=== PATIENT | male | born 1945 | race Two or more races ===

== ENCOUNTER 2025-03-05 16:55 | Inpatient (IN) | payer BC, MEDICARE ==
[~2025-03-05] VITALS: Ht 170.2 cm; Wt 63.5 kg
--- NOTE | 2025-03-05 18:04 | ED.PDOC ---
General HPI Comments Past medical history: denies Past surgical history: proctectomy in 2017 MARLENE ELY HPI: Poor Historian. 79-year-old male presents to emergency department for evaluation of hematuria f or the last two weeks however he is able to void urine. Today he was unable to void any urine and feels pressure in his pelvic area. Patient has history of mastectomy in the past. Denies any other acute symptoms. Patient is not on blood thinners. REVIEW OF SYSTEMS: CONSTITUTIONAL: Denies acute: fever, diaphoresis, chills, generalized weakness. HEAD: Denies acute: headache, photophobia Eyes: Denies acute: Double vision, vision loss, eye pain, eye discharge. EARS: Denies acute: tinnitus, hearing loss, ear discharge, ear pain, THROAT: Denies acute: sore throat, swelling, difficulty swallowing , pain with swallowing, change in voice. NECK: Denies acute: neck pain, neck swelling, stiff neck. HEART: Denies acute : chest pain, palpitations, LUNGS: Denies acute: SOB, wheezing, cough, hemoptysis ABDOMEN: Denies acute: abdominal pain, Nausea, Vomiting, diarrhea, melena , hematemesis, hematochezia SKIN: Denies acute: rash, redness, lesions, itchiness. EXTREMITIES: Denies acute: calf pain, numbness, tingling, weakness, denies pain in extremity. Denies acute: Low back pain. Neuro: Denies acute: focal neurological deficit, motor or sensory focal neurological deficit, tremors, seizure like activity, confusion, dizziness, change in mental status, loss of bowel or bladder function, cauda equina like symptoms. : Denies acute: dysuria, , flank pain, PSYCH: Denies acute: hallucination, suicidal ideation, homicidal ideation. PHYSICAL EXAM: General: -----[id number]---acute distress, awake and alert. Head: normocephalic, atraumatic. Neck: supple, trachea is midline, no swelling. Throat: Normal phonation. Eyes:, no erythema, no purulent discharge, no proptosis, no icterus. Heart: regular rate, regular rhythm, no significant murmur appreciated. Lungs: no apparent respiratory distress, Able to speak in full sentences. No wheezing, no rhonchi, no crackles. No stridors Clear to auscultation bilaterally. Abdomen: Suprapubic tender to palpation, non distended, soft, no guarding, no rebound, + bowel sounds. Neuro: Awake, Alert, oriented to name, self, situation, follows commands GCS=15. Speech is normal. Skin: no petechia, no purpura, no cyanosis, non-pale, not jaundice. Lower extremities: --trace bilateral- Pitting edema no deformity, no focal swelling, no calf TTP. Makes eye contact. moves all four extremities. Face: no apparent facial droop. Ambulating in the ED independently. ED COURSE: DISCLAIMER: This medical document was created using an electronic medical record system with voice recognition software and computerized dictation system. Although this document has been carefully reviewed, there might still be some phonetic and typographical errors. Occasional wrong-word or "sound-alike" substitutions may have occurred due to the inherent limitations of voice recognition software. These areas are purely typographical due to imperfections of the software programs and do not reflect any compromise in the patient's medical care. Please read the chart carefully and recognize, using context, where these substitutions have occurred. Chief Complaint: Urinary Time Seen by MD: 18:00 Reviewed notes: Medications, Allergies Allergies: Coded Allergies: NO KNOWN ALLERGIES (Unverified , 03/05/25) Information Source: Patient Mode of Arrival: Ambulatory Was a procedure done? Was a procedure done?: No Differential Diagnosis Kidney stone (Female): N/A Urinary Problem (Male): Bladder Outlet, Bladder Obstruction, Epididymitis, Prostatitis, Plelonephritis, Post op Complications, Renal Failure, Urethritis, Urinary Retention, Urolithiasis, UTI, Other (Hematuria:Ddx includes but not limited to: stones, coagulopathy, bladder/kidney cancer, SLE, infection, pylonephritis, prostatitis, cystitis, urethritis, renal infarct, Goodpasture syndrome, Wegners granulomatosis, Henoch-schnolin purpura, Hemolytic Uremic Syndrome HUS. Rhabdomyolysis. ) X-Ray, Labs, Meds, VS Vital Signs Date Time Temp Pulse Resp B/P (MAP) Pulse Ox O2 Delivery O2 Flow Rate FiO2 03/05/25 20:00 98.2 99 12 139/79 (99) 100 98.2 03/05/25 16:55 98.0 96 18 155/47 (83) 98 98.0 Lab Test 03/05/25 20:00 03/05/25 18:30 Range/Units Urine Color Pending Urine Clarity Pending Urine pH Pending Urine Specific [place] Pending Urine Protein Pending Urine Ketones Pending Urine Blood Pending Urine Nitrite Pending Urine Bilirubin Pending Urine Urobilinogen Pending Urine Leukocyte Esterase Pending Urine RBC Pending Urine Microscopic WBC Pending Urine Squamous Epithelial Cells Pending Urine Bacteria Pending Urine Glucose Pending White Blood Count 8.5 4.4-10.8 10^3/uL Red Blood Count 2.46 L 4.5-5.90 10^6/uL Hemoglobin 6.5 *L 13.5-17.5 g/dL Hematocrit 19.7 L 41.0-53.0 % Mean Corpuscular Volume 80.1 80.0-100.0 fL Mean Corpuscular Hemoglobin 26.4 L 28.0-32.0 pg Mean Corpuscular Hemoglobin Concent 32.9 32.0-36.0 g/dL Red Cell Distribution Width 17.5 H 11.8-14.3 % Platelet Count 451 H 140-450 10^3/uL Mean Platelet Volume 7.5 6.9-10.8 fL Neutrophils (%) (Auto) 86.3 H 37.0-80.0 % Lymphocytes (%) (Auto) 5.0 L 10.0-50.0 % Monocytes (%) (Auto) 7.2 0.0-12.0 % Eosinophils (%) (Auto) 0.9 0.0-7.0 % Basophils (%) (Auto) 0.6 0.0-2.0 % Neutrophils # (Auto) 7.3 1.6-8.6 10 ^3/uL Lymphocytes # (Auto) 0.4 0.4-5.4 10 ^3/uL Monocytes # (Auto) 0.6 0-1.3 10 ^3/uL Eosinophils # (Auto) 0.1 0-0.8 10 ^3/uL Basophils # (Auto) 0.1 0-0.2 10 ^3/uL Nucleated Red Blood Cells 0.0 % Prothrombin Time 10.9 9.3-11.8 sec Prothrombin Time INR 1.03 0.9-1.15 Activated Partial Thromboplast Time 26.3 24.5-34.5 SEC Sodium Level 140 136-145 mmol/L Potassium Level 4.1 3.5-5.1 mmol/L Chloride Level 108 H 98-107 mmol/L Carbon Dioxide Level 20 20-31 mmol/L Anion Gap 12 5-15 Blood Urea Nitrogen 32 H 9-23 mg/dL Creatinine 2.96 H 0.700-1.30 mg/dL Glomerular Filtration Rate Calc 21 >90 mL/min BUN/Creatinine Ratio 10.8 10.0-20.0 Serum Glucose 96 74-106 mg/dL Lactic Acid Level 0.7 0.4-2.0 mmol/L Calcium Level 8.9 8.7-10.4 mg/dL Total Bilirubin 0.2 0.2-1.0 mg/dL Aspartate Amino Transferase (AST) 16 <34 U/L Alanine Aminotransferase (ALT) < 9 7-40 U/L Alkaline Phosphatase 20 L 46-116 U/L Total Protein 6.7 5.7-8.2 g/dL Albumin 4.1 3.2-4.8 g/dL Current Medications Medications (Trade) Dose Ordered Sig/Julia Route Start Time Stop Time Status Last Admin Sodium Chloride 1,000 ml @ 1,000 mls/hr Q1H ONCE IV 03/05/25 19:15 03/05/25 20:14 DC 03/05/25 19:50 Ceftriaxone Sodium 50 ml @ 100 mls/hr ONCE ONCE IV 03/05/25 19:15 03/05/25 19:44 DC 03/05/25 19:50 Acetaminophen/ Hydrocodone Bitart ([place] 5/325MG Tab) 1 tab ONCE ONCE PO 03/05/25 20:00 03/05/25 20:07 DC 03/05/25 20:14 [place] [id number] Ph: [phone] DIAGNOSTIC IMAGING Diagnostic Imaging Report : [id number] Signed PATIENT: MARLENE ELY MERVATACCT: [id number] UNIT: [id number] : 1945 LOC: ER ROOM / BED: / AGE / SEX: 79 / M ADM STATUS: REG ER SERVICE [id number] ORDERING PHYSICIAN: ROB CARR DO PROCEDURE(s): ABPL - CT AB PEL WO CON-NO ORAL OR IV REASON: Hematuria ORDER NUMBER(s): [id number], ACCESSION NUMBER(s): [id number] Exam: CT CT AB PEL WO CON-NO ORAL OR IV History: Hematuria Comparison Study: None TECHNIQUE: Multidetector CT of the abdomen was performed from lung bases to pubic symphysis. Imaging was performed without IV contrast. Axial, coronal and sagittal multiplanar reformats were obtained from the axial data set by the technologist. Radiation Dose Information: CT Dose: CTDI volume is 5.07 mGy. Dose-length product is 310.4 mGy*cm FINDINGS: Evaluation of solid organs is limited due to lack of intravenous contrast use. Findings: Lung Bases: No acute or significant lung base finding. Normal heart size. No pleural or pericardial effusion. Liver: The liver is normal in size. No focal lesions. Gallbladder and Biliary Tree: Unremarkable Spleen: Unremarkable Pancreas: The pancreas is grossly normal in appearance. Adrenal Glands: Unremarkable Kidneys: Mild bilateral pyelocaliectasis. Bladder: Thickening of the bladder on the left worrisome for neoplasm. (6.9 x 2.4 cm) Bowel: The stomach is grossly normal in appearance. Small bowel and colon are normal in caliber and distribution. The appendix is not visualized; however, no secondary findings of acute appendicitis identified. Ascites: Absent Lymphadenopathy: No mesenteric, retroperitoneal or periportal lymphadenopathy. Abdominal Wall and Mesentery: Unremarkable. Vasculature: The visualized abdominal aorta is normal in size and caliber. Evaluation of abdominal and pelvic vessels is limited due to lack of intravenous contrast. Pelvic Organs: Unremarkable Musculoskeletal: No aggressive focal bony lesions, acute fractures or dislocation. Soft tissues: Unremarkable IMPRESSION: 1. Bilateral pyelocaliectasis. 2. Mucosal thickening of the bladder wall on the left measuring 6.9 by 2.5 cm Radiation optimization: All CT scans at this facility use at least one of these dose optimization techniques: automated exposure control mA and/or kV adjustment per patient size (includes targeted exams where dose is matched to clinical indication) or iterative reconstruction. HS:Y ATED BY: BALAJI MAJANO Jr., DO DICTATED DATE/TIME: 03/05/252055 SIGNED BY: BALAJI MAJANO Jr., SIGNED DATE/TIME: 03/05/252055 CC: Time of 1ST Reevaluation: 18:30 Reevaluation 1ST: Unchanged Patient Education/Counseling: Diagnosis, Treatment Family Education/Counseling: No Family Present Comments Patient presented with the above HPI.---hematuria and urinary retention---workup was initiated. patient was found with the above mentioned diagnosis. the following medications were ordered: please refer to order lists of meds and tests obtained by myself Dr. Carr. Patient ED course and VS have been stabilized. Patient has been reassessed in the ED and remained in a stable condition. Pertinent incidental findings were discussed with the patient and/or family. Patient/family voices understanding and is agreeable with plan. Patient has been observed in the ED adequate length of time to insure improvement/stability. Escalation of care considered: Consideration of escalation to observation or admission Patient stated he has been bleeding for approximately two weeks with the hematuria. Patient was found with anemia today. Patient was consented for blood transfusion. Three-way Hein catheter was ordered and continuous bladder irrigation was ordered. Patient was ADMITTED to the medicine team for further evaluation and treatment of their presentation. All the reports of any imaging studies that were ordered by myself were reviewed by myself. Departure 1 Departure Time of Disposition: 19:04 Impression: Primary Impression: Acute urinary retention Additional Impressions: Hematuria Acute renal failure Symptomatic anemia Pyelocaliectasis Disposition: ADMITTED INPATIENT Admit to: [facility] Condition: Guarded Discharged With: Self Critical Care Note Critical Care Time?: Yes (1 hr-critical care time only) I personally scribed for ROB CARR DO ([email or web address]) on 03/05/25 at 18:04. Electronically submitted by Vikas Ryan ([email or web address]). ROB CARR DO Mar 05, 2025 18:04
[2025-03-05 18:35] LABS: Nucleated Red Blood Cells % 0.0 %
[2025-03-05 18:37] LABS: Hematocrit 19.7 % (41.0-53.0); Mean Corpuscular Hemoglobin 26.4 pg (28.0-32.0); Mean Corpuscular Volume 80.1 fL (80.0-100.0)
[2025-03-05 18:53] LABS: Albumin 4.1 g/dL (3.2-4.8); Anion Gap 12 (5-15); BUN/Creatinine Ratio 10.8 (10.0-20.0); Calcium 8.9 mg/dL (8.7-10.4); Glucose 96 mg/dL (74-106); Potassium 4.1 mmol/L (3.5-5.1); Sodium 140 mmol/L (136-145); Total Protein 6.7 g/dL (5.7-8.2)
[2025-03-05 18:55] LABS: Alanine Aminotransferase < 9 U/L (7-40); Alkaline Phosphatase 20 U/L (46-116); Bilirubin, Total 0.2 mg/dL (0.2-1.0); Blood Urea Nitrogen 32 mg/dL (9-23); Carbon Dioxide 20 mmol/L (20-31); Chloride 108 mmol/L (98-107)
[2025-03-05 18:56] LABS: Hemoglobin 6.5 g/dL (13.5-17.5)
[2025-03-05 19:02] LABS: INR 1.03 (0.9-1.15); Partial Thromboplastin Time 26.3 SEC (24.5-34.5); Prothrombin Time 10.9 sec (9.3-11.8)
[2025-03-05 19:30] VITALS: PULSE 91; RESP 16; O2SAT 98
[2025-03-05] MEDS: SODIUM CHLORIDE 0.9% 1,000 ML IV ONE ×2 (19:50→22:30)
[2025-03-05] MEDS: cefTRIAXone 1GM/50ML D5W 50 ML IV ONE (19:50)
[2025-03-05] MEDS: HYDROcodone-ACET 5/325MG TAB PO ONE (20:14)
[2025-03-05] MEDS: LIDOCAINE 2% TOPICAL JELLY 5 ML URJT TOP ONE (20:15)
--- NOTE | 2025-03-05 20:59 | DVH ---
Exam: CT CT AB PEL WO CON-NO ORAL OR IV History: Hematuria Comparison Study: None TECHNIQUE: Multidetector CT of the abdomen was performed from lung bases to pubic symphysis. Imaging was performed without IV contrast. Axial, coronal and sagittal multiplanar reformats were obtained fr om the axial data set by the technologist. Radiation Dose Information: CT Dose: CTDI volume is 5.07 mGy. Dose-length product is 310.4 mGy*cm FINDINGS: Evaluation of solid organs is limited due to lack of intravenous contrast use. Findings: Lung Bases: No acute or significant lung base finding. Normal heart size. No pleural or pericardial effusion. Liver: The liver is normal in size. No focal lesions. Gallbladder and Biliary Tree: Unremarkable Spleen: Unremarkable Pancreas: The pancreas is grossly normal in appearance. Adrenal Glands: Unremarkable Kidneys: Mild bilateral pyelocaliectasis. Bladder: Thickening of the bladder on the left worrisome for neoplasm. (6.9 x 2.4 cm) Bowel: The stomach is grossly normal in appearance. Small bowel and colon are normal in caliber and d istribution. The appendix is not visualized; however, no secondary findings of acute appendicitis id entified. Ascites: Absent Lymphadenopathy: No mesenteric, retroperitoneal or periportal lymphadenopathy. Abdominal Wall and Mesentery: Unremarkable. Vasculature: The visualized abdominal aorta is normal in size and caliber. Evaluation of abdominal a nd pelvic vessels is limited due to lack of intravenous contrast. Pelvic Organs: Unremarkable Musculoskeletal: No aggressive focal bony lesions, acute fractures or dislocation. Soft tissues: Unremarkable IMPRESSION: 1. Bilateral pyelocaliectasis. 2. Mucosal thickening of the bladder wall on the left measuring 6.9 by 2.5 cm Radiation optimization: All CT scans at this facility use at least one of these dose optimization sam hniques: automated exposure control mA and/or kV adjustment per patient size (includes targeted exam s where dose is matched to clinical indication) or iterative reconstruction. HS:Y
[2025-03-05] MEDS ORDERED: ONDANSETRON HCL 4 MG/2 ML VIAL IV PRN (21:15)
[2025-03-05 21:40] LABS: Urine Protein, UAD 2+ (Negative)
--- NOTE | 2025-03-05 22:44 | DVHHP2 ---
History of Present Illness Reason for Visit: Symptomatic anemia History of Present Illness The patient is a 79-year-old male who denies past medical history presents to [facility] ED with complaint of generalized weakness. Patient noted to have hematuria for the past 2 weeks while voiding. However today, patient was unable to void any urine and feel pressure in his pelvic area, getting worse that prompted this visit. Patient was seen and evaluated in the ED, laboratory data shows WBC 8.5, hemoglobin 6.5, hematocrit 19.7, platelets 451, sodium 140, potassium 4.1, BUN 32, creatinine 2.96, glucose 96, blood pressure 139/79, heart rate 99, temperature 98.2 F, O2 saturation 99% on room air. Patient was given 2 units of PRBC, please see medication orders section in the computer. On my assessment, patient denied chest pain, no headache, no dizziness, no shortness of breath, no nausea, no vomiting, no fever, no chills. Patient was admitted for further evaluation and medical management. Past Medical History Denies past medical history Past Surgical History Proctectomy in 2017 Family History Reviewed, noncontributory to the management of this case. Past Social History The patient lives at home, denies smoking, alcohol or illicit drugs abuse. Review of Systems Constitutional: Yes: Weakness; No: Fever, Chills, Sweats, Malaise, Other Eyes: No: Pain, Vision change, Conjunctivae inflammation, Eyelid inflammation, Other, Redness ENT: No: Ear pain, Ear discharge, Nose pain, Nose discharge, Nose congestion, Mouth pain, Mouth swelling, Throat pain, Throat swelling, Other Respiratory: No: Cough, Dry, Shortness of breath, SOB with excertion, Wheezing, Hemoptysis, Pleuritic Pain, Sputum, Wheezing, Other Cardiovascular: No: Chest Pain, Palpitations, Orthopnea, Paroxysmal Noc. Dyspnea, Edema, Lt Headedness, Other Gastrointestinal: No: Nausea, Vomiting, Abdominal Pain, Diarrhea, Constipation, Melena, Hematochezia, Other Genitourinary: No Dysuria, No Frequency, No Incontinence; Hematuria, Retention; No Other Musculoskeletal: No: other, neck pain, shoulder pain, arm pain, back pain, hand pain, leg pain, foot pain Skin: No: Rash, Lesions, Jaundice, Bruising, Other Neurological: No: Weakness, Numbness, Incoordination, Change in speech, Confusion, Seizures, Other Allergies: Coded Allergies: NO KNOWN ALLERGIES (Unverified , 03/05/25) Medications Current Medications Medications Dose Ordered Sig/Julia Route Start Time Stop Time Status Last Admin Dose Admin Acetaminophen/ Hydrocodone Bitart 1 tab Q4HP PRN PO 03/05/25 21:15 Ondansetron HCl 4 mg Q4HP PRN IV 03/05/25 21:15 Docusate Sodium 100 mg BIDPRN PRN PO 03/05/25 21:15 Acetaminophen 650 mg Q6HP PRN PO 03/05/25 21:15 Sodium Chloride 1,000 ml @ 75 mls/hr [id number] IV 03/05/25 21:15 Exam Vital Signs Vital Signs Date Time Temp Pulse Resp B/P (MAP) Pulse Ox O2 Delivery O2 Flow Rate FiO2 03/05/25 20:00 98.2 99 12 139/79 (99) 100 98.2 General Appearance: Alert, Oriented X3, Cooperative, No acute distress HEENT: Atraumatic, PERRLA, EOMI, Mucous membr. moist/pink Respiratory: Clear to auscultation, Normal air movement Cardiovascular: Regular rate, Normal S1, Normal S2, No murmurs Abdominal: Normal bowel sounds, Soft, No hepatospenomegaly, No masses, Other (Reports tenderness) Extremities: No clubbing, No cyanosis, No edema, Normal pulses, No tenderness/swelling Skin: No rashes, No breakdown, No significant lesion Neuro: Normal speech, Normal tone, Sensation intact, Cranial nerves 3-12 NL, Reflexes 2+, Other (Generalized weakness) Psych/Mental Status: Mental status NL, Mood NL Labs/Xrays Labs Test 03/05/25 20:00 03/05/25 18:30 Range/Units Urine Color Light-red Yellow Urine Clarity Ex.turbid Clear Urine pH 6.5 5.0-9.0 Urine Specific [place] 1.011 1.001-1.035 Urine Protein 2+ H Negative Urine Ketones Negative Negative Urine Blood 3+ H Negative /uL Urine Nitrite Negative Negative Urine Bilirubin Negative Negative Urine Urobilinogen Normal Negative mg/dL Urine Leukocyte Esterase 2+ Negative /uL Urine RBC 6312 0 - 3 /hpf Urine Microscopic WBC 130 H 0-3 /HPF Urine Squamous Epithelial Cells None seen <5 /hpf Urine Bacteria None seen None Seen /hpf Urine Glucose Normal Normal mg/dL White Blood Count 8.5 4.4-10.8 10^3/uL Red Blood Count 2.46 L 4.5-5.90 10^6/uL Hemoglobin 6.5 *L 13.5-17.5 g/dL Hematocrit 19.7 L 41.0-53.0 % Mean Corpuscular Volume 80.1 80.0-100.0 fL Mean Corpuscular Hemoglobin 26.4 L 28.0-32.0 pg Mean Corpuscular Hemoglobin Concent 32.9 32.0-36.0 g/dL Red Cell Distribution Width 17.5 H 11.8-14.3 % Platelet Count 451 H 140-450 10^3/uL Mean Platelet Volume 7.5 6.9-10.8 fL Neutrophils (%) (Auto) 86.3 H 37.0-80.0 % Lymphocytes (%) (Auto) 5.0 L 10.0-50.0 % Monocytes (%) (Auto) 7.2 0.0-12.0 % Eosinophils (%) (Auto) 0.9 0.0-7.0 % Basophils (%) (Auto) 0.6 0.0-2.0 % Neutrophils # (Auto) 7.3 1.6-8.6 10 ^3/uL Lymphocytes # (Auto) 0.4 0.4-5.4 10 ^3/uL Monocytes # (Auto) 0.6 0-1.3 10 ^3/uL Eosinophils # (Auto) 0.1 0-0.8 10 ^3/uL Basophils # (Auto) 0.1 0-0.2 10 ^3/uL Nucleated Red Blood Cells 0.0 % Prothrombin Time 10.9 9.3-11.8 sec Prothrombin Time INR 1.03 0.9-1.15 Activated Partial Thromboplast Time 26.3 24.5-34.5 SEC Sodium Level 140 136-145 mmol/L Potassium Level 4.1 3.5-5.1 mmol/L Chloride Level 108 H 98-107 mmol/L Carbon Dioxide Level 20 20-31 mmol/L Anion Gap 12 5-15 Blood Urea Nitrogen 32 H 9-23 mg/dL Creatinine 2.96 H 0.700-1.30 mg/dL Glomerular Filtration Rate Calc 21 >90 mL/min BUN/Creatinine Ratio 10.8 10.0-20.0 Serum Glucose 96 74-106 mg/dL Lactic Acid Level 0.7 0.4-2.0 mmol/L Calcium Level 8.9 8.7-10.4 mg/dL Total Bilirubin 0.2 0.2-1.0 mg/dL Aspartate Amino Transferase (AST) 16 <34 U/L Alanine Aminotransferase (ALT) < 9 7-40 U/L Alkaline Phosphatase 20 L 46-116 U/L Total Protein 6.7 5.7-8.2 g/dL Albumin 4.1 3.2-4.8 g/dL PATIENT: MARLENE ELYACCT: [id number] UNIT: [id number] : 1945 LOC: ER ROOM / BED: / AGE / SEX: 79 / M ADM STATUS: REG ER SERVICE 1749 ORDERING PHYSICIAN: ROB CARR DO PROCEDURE(s): ABPL - CT AB PEL WO CON-NO ORAL OR IV REASON: Hematuria ORDER NUMBER(s): [id number], ACCESSION NUMBER(s): [id number] Exam: CT CT AB PEL WO CON-NO ORAL OR IV History: Hematuria Comparison Study: None TECHNIQUE: Multidetector CT of the abdomen was performed from lung bases to pubic symphysis. Imaging was performed without IV contrast. Axial, coronal and sagittal multiplanar reformats were obtained from the axial data set by the technologist. Radiation Dose Information: CT Dose: CTDI volume is 5.07 mGy. Dose-length product is 310.4 mGy*cm FINDINGS: Evaluation of solid organs is limited due to lack of intravenous contrast use. Findings: Lung Bases: No acute or significant lung base finding. Normal heart size. No pleural or pericardial effusion. Liver: The liver is normal in size. No focal lesions. Gallbladder and Biliary Tree: Unremarkable Spleen: Unremarkable Pancreas: The pancreas is grossly normal in appearance. Adrenal Glands: Unremarkable Kidneys: Mild bilateral pyelocaliectasis. Bladder: Thickening of the bladder on the left worrisome for neoplasm. (6.9 x 2.4 cm) Bowel: The stomach is grossly normal in appearance. Small bowel and colon are normal in caliber and distribution. The appendix is not visualized; however, no secondary findings of acute appendicitis identified. Ascites: Absent Lymphadenopathy: No mesenteric, retroperitoneal or periportal lymphadenopathy. Abdominal Wall and Mesentery: Unremarkable. Vasculature: The visualized abdominal aorta is normal in size and caliber. Evaluation of abdominal and pelvic vessels is limited due to lack of intravenous contrast. Pelvic Organs: Unremarkable Musculoskeletal: No aggressive focal bony lesions, acute fractures or dislocation. Soft tissues: Unremarkable IMPRESSION: 1. Bilateral pyelocaliectasis. 2. Mucosal thickening of the bladder wall on the left measuring 6.9 by 2.5 cm Assessment/Plan Assessment/Plan Symptomatic anemia Acute urinary retention Hematuria Acute renal failure Pyelocaliectasis Generalized weakness Plan 1. Admit to telemetry unit 2. Breathing treatment 3. Pain control management 4. IV antibiotic management 5. Management of fluids and electrolytes 6. Consultation for Urology/Nephrology 7. Diagnostic test abdomen/pelvis CT 8. DVT prophylaxis on SCDs 9. Repeat labs CBC, CMP in a.m. 10. Home medication reviewed and reconciled 11. Continue with current medical management 12. Treatment plan discussed with patient and RN. Patient verbalized unde rstanding. Plan discussed with: Patient, Other (RN) My Orders Orders - CHAVO FLEMING DNP Procedure Category Date Status Time *Dr. [facility] CONS 03/05/25 Transmitted -[place] 21:08 Allergies HUSSEIN 03/05/25 In Process 21:08 Code Status CODE 03/05/25 Transmitted 21:08 Oxygen Per Hour RT 03/05/25 Transmitted 21:08 Hydrocodone-Acet PHA 03/05/25 In Process 5/325mg Tab ([place] 21:15 Ondansetron Hcl PHA 03/05/25 In Process (Zofran) 21:15 Docusate Sodium PHA 03/05/25 In Process Capsule (Colace 21:15 Complete Blood Count LAB 03/06/25 Verified 04:00 Comprehensive LAB 03/06/25 Verified Metabolic Panel 04:00 Cardiac DIET 03/06/25 Transmitted Diet-2gna,Lofat,Lochol Breakfast Condition: Serious HUSSEIN 03/05/25 In Process 21:08 Acetaminophen Tablet PHA 03/05/25 In Process (Tylenol Tablet) 21:15 Bedrest With Bathroom HUSSEIN 03/05/25 In Process Privileg 21:08 Sequential HUSSEIN 03/05/25 In Process Compression Device Sod Chl 0.45% (Sodium PHA 03/05/25 In Process Chloride 0.45% Via 21:15 Problem List: (1) Symptomatic anemia (2) Acute urinary retention (3) Hematuria (4) Pyelocaliectasis (5) Acute renal failure (6) Generalized weakness Date of Service: Mar 05, 2025 Billing Provider: CHAVO FLEMING DNP Common Visit Codes: [id number] INP/OBS CARE (HIGH) CHAVO FLEMING DNP Mar 05, 2025 22:44
[2025-03-05] MEDS ORDERED: NITROGLYCERIN 0.4 MG SL TAB SL PRN (22:45)
[2025-03-05] MEDS ORDERED: MORPHINE SULFATE INJ 2 MG/ml SYRG IV PRN (22:45)
[2025-03-05] MEDS: LIDOCAINE 2% JELLY 11ml (GLYDO) ONE (23:45)
[2025-03-06] VITALS (12 sets, daily range): BP systolic 134–161; BP diastolic 78–102; PULSE 62–99; RESP 16–21; TEMP 96.4–98.3; O2SAT 96–99
[2025-03-06] MEDS: LIDOCAINE 2% JELLY 11ml (GLYDO) UR ONE (00:02)
[2025-03-06 05:06] LABS: COVID19 ANTIGEN SOFIA FIA NEGATIVE (NEGATIVE)
[2025-03-06 07:36] LABS: Hematocrit 26.0 % (41.0-53.0); Hemoglobin 8.7 g/dL (13.5-17.5); Mean Corpuscular Hemoglobin 27.9 pg (28.0-32.0); Mean Corpuscular Volume 83.4 fL (80.0-100.0); Nucleated Red Blood Cells % 0.1 %
[2025-03-06 07:52] LABS: Albumin 3.9 g/dL (3.2-4.8); Anion Gap 14 (5-15); BUN/Creatinine Ratio 8.8 (10.0-20.0); Calcium 9.2 mg/dL (8.7-10.4); Glucose 95 mg/dL (74-106); Potassium 4.3 mmol/L (3.5-5.1); Sodium 143 mmol/L (136-145); Total Protein 6.4 g/dL (5.7-8.2)
[2025-03-06 07:57] LABS: Alanine Aminotransferase < 9 U/L (7-40); Alkaline Phosphatase 19 U/L (46-116); Bilirubin, Total 0.3 mg/dL (0.2-1.0); Blood Urea Nitrogen 30 mg/dL (9-23); Carbon Dioxide 18 mmol/L (20-31); Chloride 111 mmol/L (98-107)
--- NOTE | 2025-03-06 10:29 | DVHINCON2 ---
Date of service: Mar 06, 2025 Referring Physician Kervin Dwyer, nurse practitioner Reason for Consultation Acute kidney injury History of Present Illness Patient is 79-year-old male with past medical history of prostate cancer diagnosed in 2017 status post surgery is admitted for urinary retention of the passing blood clots for two weeks for two weeks. On admission patient found to have elevated BUN creatinine nephrology is consulted for acute kidney injury Past Medical History Prostate cancer Past Surgical History Prostate surgery Allergies: Coded Allergies: NO KNOWN ALLERGIES (Unverified , 03/05/25) Home Meds No Active Prescriptions or Reported Meds Current Medications Current Medications Medications (Trade) Dose Ordered Sig/Julia Route PRN Reason Start Time Stop Time Status Last Admin Acetaminophen/ Hydrocodone Bitart (Homer 5/325MG Tab) 1 tab Q4HP PRN PO MODERATE PAIN (4-6 PAIN SCALE) 03/05/25 21:15 Ondansetron HCl (Zofran) 4 mg Q4HP PRN IV NAUSEA / VOMITING 03/05/25 21:15 Docusate Sodium (Colace Capsule) 100 mg BIDPRN PRN PO FOR CONSTIPATION 03/05/25 21:15 Acetaminophen (Tylenol Tablet) 650 mg Q6HP PRN PO PAIN SCALE 1-3 OR TEMP>100.4 03/05/25 21:15 Sodium Chloride 1,000 ml @ 75 mls/hr [id number] IV 03/05/25 21:15 Nitroglycerin (Ntrostat Sublingual) 0.4 mg Q5MINP PRN SL FOR CHEST PAIN 03/05/25 22:45 Morphine Sulfate 2 mg Q30M PRN IV FOR CHEST PAIN 03/05/25 22:45 Review of Systems All 12 item review of systems reviewed with the patient nonsignificant except what is mentioned in the history of present illness H&P Exam Vital Signs/I&O Vital Sign Date Time Temp Pulse Resp B/P (MAP) Pulse Ox O2 Delivery O2 Flow Rate FiO2 03/06/25 08:49 97.6 83 21 146/78 (100) 99 97.6 03/06/25 08:00 Room Air* 0 21 Intake and Output 03/05/25 03/06/25 19:00 07:00 Intake Total 1950 ml Output Total 390 ml Balance 1560 ml Intake Oral 0 ml IV Total 1050 ml Tube Feeding 0 ml Blood Product 900 ml Other 0 ml Output Urine Total 390 ml Physical Exam Patient is awake and alert Lungs clear to auscultation bilaterally Cardiac exam regular rate and rhythm GI soft nontender distended bladder Extremities no clubbing cyanosis or edema Neuro nonfocal Labs/Diagnostic Data Labs/Diagnostic Data Laboratory Tests Test 03/06/25 07:02 03/06/25 04:08 03/05/25 20:00 03/05/25 18:30 Range/Units White Blood Count 8.2 8.5 4.4-10.8 10^3/uL Red Blood Count 3.12 L 2.46 L 4.5-5.90 10^6/uL Hemoglobin 8.7 #L 6.5 *L 13.5-17.5 g/dL Hematocrit 26.0 #L 19.7 L 41.0-53.0 % Mean Corpuscular Volume 83.4 # 80.1 80.0-100.0 fL Mean Corpuscular Hemoglobin 27.9 L 26.4 L 28.0-32.0 pg Mean Corpuscular Hemoglobin Concent 33.5 32.9 32.0-36.0 g/dL Red Cell Distribution Width 18.2 H 17.5 H 11.8-14.3 % Platelet Count 402 451 H 140-450 10^3/uL Mean Platelet Volume 7.9 7.5 6.9-10.8 fL Neutrophils (%) (Auto) 87.0 H 86.3 H 37.0-80.0 % Lymphocytes (%) (Auto) 6.4 L 5.0 L 10.0-50.0 % Monocytes (%) (Auto) 6.2 7.2 0.0-12.0 % Eosinophils (%) (Auto) 0.2 0.9 0.0-7.0 % Basophils (%) (Auto) 0.2 0.6 0.0-2.0 % Neutrophils # (Auto) 7.2 7.3 1.6-8.6 10 ^3/uL Lymphocytes # (Auto) 0.5 0.4 0.4-5.4 10 ^3/uL Monocytes # (Auto) 0.5 0.6 0-1.3 10 ^3/uL Eosinophils # (Auto) 0 0.1 0-0.8 10 ^3/uL Basophils # (Auto) 0 0.1 0-0.2 10 ^3/uL Nucleated Red Blood Cells 0.1 0.0 % Sodium Level 143 140 136-145 mmol/L Potassium Level 4.3 4.1 3.5-5.1 mmol/L Chloride Level 111 H 108 H 98-107 mmol/L Carbon Dioxide Level 18 L 20 20-31 mmol/L Anion Gap 14 12 5-15 Blood Urea Nitrogen 30 H 32 H 9-23 mg/dL Creatinine 3.41 H 2.96 H 0.700-1.30 mg/dL Glomerular Filtration Rate Calc 18 21 >90 mL/min BUN/Creatinine Ratio 8.8 L 10.8 10.0-20.0 Serum Glucose 95 96 74-106 mg/dL Calcium Level 9.2 8.9 8.7-10.4 mg/dL Phosphorus Level 4.7 2.4-5.1 mg/dL Magnesium Level 1.9 1.6-2.6 mg/dL Total Bilirubin 0.3 0.2 0.2-1.0 mg/dL Aspartate Amino Transferase (AST) 14 16 <34 U/L Alanine Aminotransferase (ALT) < 9 < 9 7-40 U/L Alkaline Phosphatase 19 L 20 L 46-116 U/L Total Protein 6.4 6.7 5.7-8.2 g/dL Albumin 3.9 4.1 3.2-4.8 g/dL SARS-CoV-2 Antigen (Rapid) Negative NEGATIVE Urine Color Light-red Yellow Urine Clarity Ex.turbid Clear Urine pH 6.5 5.0-9.0 Urine Specific [place] 1.011 1.001-1.035 Urine Protein 2+ H Negative Urine Ketones Negative Negative Urine Blood 3+ H Negative /uL Urine Nitrite Negative Negative Urine Bilirubin Negative Negative Urine Urobilinogen Normal Negative mg/dL Urine Leukocyte Esterase 2+ Negative /uL Urine RBC 6312 0 - 3 /hpf Urine Microscopic WBC 130 H 0-3 /HPF Urine Squamous Epithelial Cells None seen <5 /hpf Urine Bacteria None seen None Seen /hpf Urine Glucose Normal Normal mg/dL Prothrombin Time 10.9 9.3-11.8 sec Prothrombin Time INR 1.03 0.9-1.15 Activated Partial Thromboplast Time 26.3 24.5-34.5 SEC Lactic Acid Level 0.7 0.4-2.0 mmol/L Assessment Acute kidney injury superimposed Chronic Kidney Disease secondary hemodynamic mediated Urinary retention Hematuria History of prostate cancer Hypertension Anemia due to blood loss Metabolic acidosis Recommendations Closely monitor fluid and electrolytes Avoid nephrotoxic medications Hein catheter Continuous bladder irrigation Strict I&Os I agree with IV fluid hydration Packed red blood cell transfusion p.r.n. Blood pressure control Urology consult We will continue to follow Patient seen and examined by myself. I discussed my plan of care with the patient and primary nurse at the bedside I would like to thank Kervin for the consult, will follow up Plan discussed with: Patient RUTH SHAW MD Mar 06, 2025 10:29
[2025-03-06] MEDS: SOD CHL 0.45% 1,000 ML IV SCH (10:35)
[2025-03-06 10:51] LABS: Magnesium 1.9 mg/dL (1.6-2.6)
--- NOTE | 2025-03-06 13:47 | DVHPN2 ---
Reviewed: Care Plan, H&P, Labs, Medications, Previous Orders, Radiology Changes from previous H/P or p: No Changes Eyes: No Pain, No Vision change, No Conjunctivae inflammation, No Eyelid inflammation, No Other, No Redness ENT: No Ear pain, No Ear discharge, No Nose pain, No Nose discharge, No Nose congestion, No Mouth pain, No Mouth swelling, No Throat pain, No Throat swelling, No Other Cardiovascular: No Chest Pain, No Palpitations, No Orthopnea, No Paroxysmal Noc. Dyspnea, No Edema, No Lt Headedness, No Other Respiratory: No Cough, No Dry, No Shortness of breath, No SOB with excertion, No Wheezing, No Hemoptysis, No Pleuritic Pain, No Sputum, No Other Gastrointestinal: No Nausea, No Vomiting, No Abdominal Pain, No Diarrhea, No Constipation, No Melena, No Hematochezia, No Other Genitourinary: No Dysuria, No Frequency, No Incontinence; Hematuria, Retention; No Other Musculoskeletal: No other, No neck pain, No shoulder pain, No arm pain, No back pain, No hand pain, No leg pain, No foot pain Skin: No Rash, No Lesions, No Jaundice, No Bruising, No Other Objective Vitals Vital Signs Date Time Temp Pulse Resp B/P (MAP) Pulse Ox O2 Delivery O2 Flow Rate FiO2 03/06/25 12:52 96.4 80 21 150/96 (114) 98 96.4 03/06/25 08:00 Room Air* 0 21 Intake/Output Intake and Output 03/06/25 07:00 Intake Total 1950 ml Output Total 390 ml Balance 1560 ml Intake Oral 0 ml IV Total 1050 ml Tube Feeding 0 ml Blood Product 900 ml Other 0 ml Output Urine Total 390 ml Medications Current Medications Medications Dose Ordered Sig/Julia Route Start Time Stop Time Status Last Admin Dose Admin Acetaminophen/ Hydrocodone Bitart 1 tab Q4HP PRN PO 03/05/25 21:15 Ondansetron HCl 4 mg Q4HP PRN IV 03/05/25 21:15 Docusate Sodium 100 mg BIDPRN PRN PO 03/05/25 21:15 Acetaminophen 650 mg Q6HP PRN PO 03/05/25 21:15 Sodium Chloride 1,000 ml @ 75 mls/hr [id number] IV 03/05/25 21:15 Nitroglycerin 0.4 mg Q5MINP PRN SL 03/05/25 22:45 Morphine Sulfate 2 mg Q30M PRN IV 03/05/25 22:45 Ceftriaxone Sodium 50 ml @ 100 mls/hr DAILY@09 IV 03/07/25 09:00 UNV Laboratory Results Laboratory Tests 03/06/25 07:02 Chemistry Test 03/05/25 18:30 03/06/25 07:02 Albumin 4.1 g/dL (3.2-4.8) 3.9 g/dL (3.2-4.8) Calcium Level 8.9 mg/dL (8.7-10.4) 9.2 mg/dL (8.7-10.4) Total Protein 6.7 g/dL (5.7-8.2) 6.4 g/dL (5.7-8.2) Magnesium Level 1.9 mg/dL (1.6-2.6) Phosphorus Level 4.7 mg/dL (2.4-5.1) Coagulation Test 03/05/25 18:30 Prothrombin Time 10.9 sec (9.3-11.8) Prothrombin Time INR 1.03 (0.9-1.15) Activated Partial Thromboplast Time 26.3 SEC (24.5-34.5) LFT Test 03/05/25 18:30 03/06/25 07:02 Alanine Aminotransferase (ALT) < 9 U/L (7-40) < 9 U/L (7-40) Alkaline Phosphatase 20 U/L (46-116) L 19 U/L (46-116) L Aspartate Amino Transferase (AST) 16 U/L (<34) 14 U/L (<34) Total Bilirubin 0.2 mg/dL (0.2-1.0) 0.3 mg/dL (0.2-1.0) Urinalysis Test 03/05/25 20:00 Urine Color Light-red (Yellow) Urine Clarity Ex.turbid (Clear) Urine pH 6.5 (5.0-9.0) Urine Specific [place] 1.011 (1.001-1.035) Urine Protein 2+ (Negative) H Urine Ketones Negative (Negative) Urine Blood 3+ /uL (Negative) H Urine Nitrite Negative (Negative) Urine Bilirubin Negative (Negative) Urine Urobilinogen Normal mg/dL (Negative) Urine Leukocyte Esterase 2+ /uL (Negative) Urine RBC 6312 /hpf (0 - 3) Urine Microscopic WBC 130 /HPF (0-3) H Urine Squamous Epithelial Cells None seen /hpf (<5) Urine Bacteria None seen /hpf (None Seen) Urine Glucose Normal mg/dL (Normal) Labs and/or images reviewed: Labs reviewed by me, Image(s) reviewed by me Assessment/Plan Assessment/Plan Acute symptomatic anemia hemoglobin 6.5, improved to 8.7 after 1 unit RBC transfusion Acute urinary retention : Hein consult by Urology Dr. Sommer Acute bilateral hydronephrosis Hematuria FERMIN on CKD: Consult by appreciated Acute generalized weakness History of prostatectomy 14 years ago, Will check PSA Plan discussed with: Patient My Orders Orders - JULES MCKEON MD Procedure Category Date Status Time Blood Culture NIRMALA 03/06/25 Logged 13:38 Urine Bacterial NIRMALA 03/06/25 Logged Culture 13:38 Ceftriaxone 1gm/50ml PHA 03/07/25 Logged D5w (Rocephin) 09:00 Ceftriaxone 1gm/50ml PHA 03/06/25 Logged D5w (Rocephin) 13:45 Date of Service: Mar 06, 2025 Billing Provider: JULES MCKEON MD Common Visit Codes: [id number] INP/OBS CARE(HIGH) JULES MCKEON MD Mar 06, 2025 13:47
[2025-03-06] MEDS: TAMSULOSIN HYDROCHLORIDE 0.4 MG CAP PO ONE (16:10)
[2025-03-06] MEDS: cefTRIAXone 1GM/50ML D5W 50 ML IV ONE (16:10)
[2025-03-07] MEDS: MELATONIN 5 MG TAB PO ONE (03:19)
[2025-03-07 08:00] VITALS: PULSE 92
[2025-03-07 08:45] VITALS: BP 135/90; PULSE 81; RESP 16; TEMP 97.9; O2SAT 95
[2025-03-07] MEDS: cefTRIAXone 1GM/50ML D5W 50 ML IV SCH (09:37)
--- NOTE | 2025-03-07 10:46 | DVHPN2 ---
Progress Note Date Seen: Mar 07, 2025 Medical Necessity Reason Pt with a Central, PICC or Fol: No Subjective Review of Systems: :Abnormal Other Systems: Patient seen and examined by myself today in follow-up Objective vital signs Vital Sign Date Time Temp Pulse Resp B/P (MAP) Pulse Ox O2 Delivery O2 Flow Rate FiO2 03/07/25 08:45 97.9 81 16 135/90 (105) 95 97.9 03/07/25 08:22 Room Air* 0 21 Total Intake and Output 03/06/25 03/06/25 03/07/25 15:00 23:00 07:00 Intake Total 2100 ml 1999.1 ml Output Total 530 ml Balance 2100 ml 1469.1 ml medications Current Medications Medications Dose Ordered Sig/Julia Route Start Time Stop Time Status Last Admin Dose Admin Acetaminophen/ Hydrocodone Bitart 1 tab Q4HP PRN PO 03/05/25 21:15 Ondansetron HCl 4 mg Q4HP PRN IV 03/05/25 21:15 Docusate Sodium 100 mg BIDPRN PRN PO 03/05/25 21:15 Acetaminophen 650 mg Q6HP PRN PO 03/05/25 21:15 Sodium Chloride 1,000 ml @ 75 mls/hr [id number] IV 03/05/25 21:15 03/07/25 04:26 75 MLS/HR Nitroglycerin 0.4 mg Q5MINP PRN SL 03/05/25 22:45 Morphine Sulfate 2 mg Q30M PRN IV 03/05/25 22:45 Ceftriaxone Sodium 50 ml @ 100 mls/hr DAILY@09 IV 03/07/25 09:00 03/07/25 09:37 100 MLS/HR Tamsulosin HCl 0.4 mg QPM PO 03/07/25 18:00 UNV Examination: LUNGS:Normal, CVS:Normal, MSK:Normal, :Abnormal laboratory and microbiology Laboratory Tests 03/06/25 07:02 Test 03/06/25 07:02 Range/Units Serum Glucose 95 74-106 mg/dL Problem List/Assessment/Plan Problem List/Assessment/Plan Acute kidney injury superimposed Chronic Kidney Disease secondary hemodynamic mediated Urinary retention Hematuria History of prostate cancer Hypertension Anemia due to blood loss Metabolic acidosis Recommendations No labs today Hein catheter Continuous bladder irrigation Strict I&Os I agree with IV fluid hydration Packed red blood cell transfusion p.r.n. Blood pressure control Urology consult We will continue to follow Plan discussed with: Patient CC Plasma Assessment Blood Product Administration S: [id number] URTH SHAW MD Mar 07, 2025 10:46
[2025-03-07] MEDS ORDERED: MORPHINE SULFATE 4 MG/ML SYR/VIAL IV PRN (11:00)
--- NOTE | 2025-03-07 11:04 | DVHINCON2 ---
Date of service: Mar 07, [address] Marinelli Reason for Consultation Gross Hematuria History of Present Illness History Source: Patient, RN Notes, MD Notes Exam Limitations: No limitations HPI 79-year-old male with past medical history of prostate cancer diagnosed in 2017 status post prostatectomy is admitted for urinary retention of the passing blood clots for two weeks. On admission patient found to have elevated BUN creatinine. multiple unsuccessful goodman catheter placement attempts. Home Meds No Active Prescriptions or Reported Meds Past Medical History Hemotology/Oncology: Cancer Review of Systems Genitourinary: Dysuria, Hematuria H&P Exam Vital Signs Vital Signs Date Time Temp Pulse Resp B/P (MAP) Pulse Ox O2 Delivery O2 Flow Rate FiO2 03/07/25 08:45 97.9 81 16 135/90 (105) 95 97.9 03/07/25 08:22 Room Air* 0 21 General Appeara: Well developed, Well nourished, Normal Appearance Neuro/Mental St: Alert, Oriented Appearance: Appropriate appearance, Appropriate insight Eye contact/ Speech: Cooperative, Good eye contact, Normal speech Skin Exam: Normal inspection, Normal color, Warm/dry Labs/Xrays [place] [id number] Ph: [phone] DIAGNOSTIC IMAGING Diagnostic Imaging Report : [id number] Signed PATIENT: MARLENE ELYACCT: [id number] UNIT: [id number] : 1945 LOC: ER ROOM / BED: / AGE / SEX: 79 / M ADM STATUS: REG ER SERVICE [id number] ORDERING PHYSICIAN: ROB CARR DO PROCEDURE(s): ABPL - CT AB PEL WO CON-NO ORAL OR IV REASON: Hematuria ORDER NUMBER(s): [id number], ACCESSION NUMBER(s): [id number] Exam: CT CT AB PEL WO CON-NO ORAL OR IV History: Hematuria Comparison Study: None TECHNIQUE: Multidetector CT of the abdomen was performed from lung bases to pubic symphysis. Imaging was performed without IV contrast. Axial, coronal and sagittal multiplanar reformats were obtained from the axial data set by the technologist. Radiation Dose Information: CT Dose: CTDI volume is 5.07 mGy. Dose-length product is 310.4 mGy*cm FINDINGS: Evaluation of solid organs is limited due to lack of intravenous contrast use. Findings: Lung Bases: No acute or significant lung base finding. Normal heart size. No pleural or pericardial effusion. Liver: The liver is normal in size. No focal lesions. Gallbladder and Biliary Tree: Unremarkable Spleen: Unremarkable Pancreas: The pancreas is grossly normal in appearance. Adrenal Glands: Unremarkable Kidneys: Mild bilateral pyelocaliectasis. Bladder: Thickening of the bladder on the left worrisome for neoplasm. (6.9 x 2.4 cm) Bowel: The stomach is grossly normal in appearance. Small bowel and colon are normal in caliber and distribution. The appendix is not visualized; however, no secondary findings of acute appendicitis identified. Ascites: Absent Lymphadenopathy: No mesenteric, retroperitoneal or periportal lymphadenopathy. Abdominal Wall and Mesentery: Unremarkable. Vasculature: The visualized abdominal aorta is normal in size and caliber. Evaluation of abdominal and pelvic vessels is limited due to lack of intravenous contrast. Pelvic Organs: Unremarkable Musculoskeletal: No aggressive focal bony lesions, acute fractures or dislocation. Soft tissues: Unremarkable IMPRESSION: 1. Bilateral pyelocaliectasis. 2. Mucosal thickening of the bladder wall on the left measuring 6.9 by 2.5 cm Radiation optimization: All CT scans at this facility use at least one of these dose optimization techniques: automated exposure control mA and/or kV adjustment per patient size (includes targeted exams where dose is matched to clinical indication) or iterative reconstruction. HS:Y ATED BY: BALAJI MAJANO Jr., DO DICTATED DATE/TIME: 03/05/252055 SIGNED BY: BALAJI MAJANO Jr., SIGNED DATE/TIME: 03/05/252055 CC: Labs Test 03/06/25 15:45 03/06/25 07:02 03/06/25 04:08 03/05/25 20:00 Range/Units White Blood Count 8.2 4.4-10.8 10^3/uL Red Blood Count 3.12 L 4.5-5.90 10^6/uL Hemoglobin 8.7 #L 13.5-17.5 g/dL Hematocrit 26.0 #L 41.0-53.0 % Mean Corpuscular Volume 83.4 # 80.0-100.0 fL Mean Corpuscular Hemoglobin 27.9 L 28.0-32.0 pg Mean Corpuscular Hemoglobin Concent 33.5 32.0-36.0 g/dL Red Cell Distribution Width 18.2 H 11.8-14.3 % Platelet Count 402 140-450 10^3/uL Mean Platelet Volume 7.9 6.9-10.8 fL Neutrophils (%) (Auto) 87.0 H 37.0-80.0 % Lymphocytes (%) (Auto) 6.4 L 10.0-50.0 % Monocytes (%) (Auto) 6.2 0.0-12.0 % Eosinophils (%) (Auto) 0.2 0.0-7.0 % Basophils (%) (Auto) 0.2 0.0-2.0 % Neutrophils # (Auto) 7.2 1.6-8.6 10 ^3/uL Lymphocytes # (Auto) 0.5 0.4-5.4 10 ^3/uL Monocytes # (Auto) 0.5 0-1.3 10 ^3/uL Eosinophils # (Auto) 0 0-0.8 10 ^3/uL Basophils # (Auto) 0 0-0.2 10 ^3/uL Nucleated Red Blood Cells 0.1 % Sodium Level 143 136-145 mmol/L Potassium Level 4.3 3.5-5.1 mmol/L Chloride Level 111 H 98-107 mmol/L Carbon Dioxide Level 18 L 20-31 mmol/L Anion Gap 14 5-15 Blood Urea Nitrogen 30 H 9-23 mg/dL Creatinine 3.41 H 0.700-1.30 mg/dL Glomerular Filtration Rate Calc 18 >90 mL/min BUN/Creatinine Ratio 8.8 L 10.0-20.0 Serum Glucose 95 74-106 mg/dL Calcium Level 9.2 8.7-10.4 mg/dL Phosphorus Level 4.7 2.4-5.1 mg/dL Magnesium Level 1.9 1.6-2.6 mg/dL Total Bilirubin 0.3 0.2-1.0 mg/dL Aspartate Amino Transferase (AST) 14 <34 U/L Alanine Aminotransferase (ALT) < 9 7-40 U/L Alkaline Phosphatase 19 L 46-116 U/L Total Protein 6.4 5.7-8.2 g/dL Albumin 3.9 3.2-4.8 g/dL Vitamin D 25-Hydroxy 22.0 L 30.0-100 ng/mL Parathyroid Hormone (Intact) 109.4 H 18.4-80.1 pg/mL SARS-CoV-2 Antigen (Rapid) Negative NEGATIVE Urine Color Light-red Yellow Urine Clarity Ex.turbid Clear Urine pH 6.5 5.0-9.0 Urine Specific [place] 1.011 1.001-1.035 Urine Protein 2+ H Negative Urine Ketones Negative Negative Urine Blood 3+ H Negative /uL Urine Nitrite Negative Negative Urine Bilirubin Negative Negative Urine Urobilinogen Normal Negative mg/dL Urine Leukocyte Esterase 2+ Negative /uL Urine RBC 6312 0 - 3 /hpf Urine Microscopic WBC 130 H 0-3 /HPF Urine Squamous Epithelial Cells None seen <5 /hpf Urine Bacteria None seen None Seen /hpf Urine Glucose Normal Normal mg/dL Test 03/05/25 18:30 Range/Units Prothrombin Time 10.9 9.3-11.8 sec Prothrombin Time INR 1.03 0.9-1.15 Activated Partial Thromboplast Time 26.3 24.5-34.5 SEC Lactic Acid Level 0.7 0.4-2.0 mmol/L Assessment/Plan Problem List: (1) Personal history of malignant neoplasm of prostate (2) H/O prostatectomy (3) Pyelocaliectasis (4) Hematuria (5) Acute renal failure (6) Acute urinary retention (7) Symptomatic anemia (8) Generalized weakness Plan will need cysto and TURBT TBA monitor renal function transfuse PRBC for hgb < 7 Plan discussed with: Patient, Other GABRIELE DOUGLAS NP Mar 07, 2025 11:04
[2025-03-07] MEDS: LIDOCAINE 2% JELLY 11ml (GLYDO) UR ONE (12:36)
--- NOTE | 2025-03-07 13:15 | DVHPN2 ---
Reviewed: Care Plan, H&P, Labs, Medications, Previous Orders, Radiology Changes from previous H/P or p: No Changes Eyes: No Pain, No Vision change, No Conjunctivae inflammation, No Eyelid inflammation, No Other, No Redness ENT: No Ear pain, No Ear discharge, No Nose pain, No Nose discharge, No Nose congestion, No Mouth pain, No Mouth swelling, No Throat pain, No Throat swelling, No Other Cardiovascular: No Chest Pain, No Palpitations, No Orthopnea, No Paroxysmal Noc. Dyspnea, No Edema, No Lt Headedness, No Other Respiratory: No Cough, No Dry, No Shortness of breath, No SOB with excertion, No Wheezing, No Hemoptysis, No Pleuritic Pain, No Sputum, No Other Gastrointestinal: No Nausea, No Vomiting, No Abdominal Pain, No Diarrhea, No Constipation, No Melena, No Hematochezia, No Other Genitourinary: No Dysuria, No Frequency, No Incontinence; Hematuria, Retention; No Other Musculoskeletal: No other, No neck pain, No shoulder pain, No arm pain, No back pain, No hand pain, No leg pain, No foot pain Skin: No Rash, No Lesions, No Jaundice, No Bruising, No Other Objective Vitals Vital Signs Date Time Temp Pulse Resp B/P (MAP) Pulse Ox O2 Delivery O2 Flow Rate FiO2 03/07/25 08:45 97.9 81 16 135/90 (105) 95 97.9 03/07/25 08:22 Room Air* 0 21 Intake/Output Intake and Output 03/07/25 07:00 Intake Total 4099.1 ml Output Total 530 ml Balance 3569.1 ml Intake Oral 1450 ml IV Total 1749.1 ml Other 900 ml Output Urine Total 530 ml # Voids 5 Medications Current Medications Medications Dose Ordered Sig/Julia Route Start Time Stop Time Status Last Admin Dose Admin Acetaminophen/ Hydrocodone Bitart 1 tab Q4HP PRN PO 03/05/25 21:15 Ondansetron HCl 4 mg Q4HP PRN IV 03/05/25 21:15 Docusate Sodium 100 mg BIDPRN PRN PO 03/05/25 21:15 Acetaminophen 650 mg Q6HP PRN PO 03/05/25 21:15 Sodium Chloride 1,000 ml @ 75 mls/hr [id number] IV 03/05/25 21:15 03/07/25 04:26 75 MLS/HR Nitroglycerin 0.4 mg Q5MINP PRN SL 03/05/25 22:45 Morphine Sulfate 2 mg Q30M PRN IV 03/05/25 22:45 Cancel Ceftriaxone Sodium 50 ml @ 100 mls/hr DAILY@09 IV 03/07/25 09:00 03/07/25 09:37 100 MLS/HR Tamsulosin HCl 0.4 mg QPM PO 03/07/25 18:00 Morphine Sulfate 2 mg Q30M PRN IV 03/07/25 11:00 Laboratory Results Laboratory Tests 03/06/25 07:02 Urinalysis Test 03/05/25 20:00 Urine Color Light-red (Yellow) Urine Clarity Ex.turbid (Clear) Urine pH 6.5 (5.0-9.0) Urine Specific [place] 1.011 (1.001-1.035) Urine Protein 2+ (Negative) H Urine Ketones Negative (Negative) Urine Blood 3+ /uL (Negative) H Urine Nitrite Negative (Negative) Urine Bilirubin Negative (Negative) Urine Urobilinogen Normal mg/dL (Negative) Urine Leukocyte Esterase 2+ /uL (Negative) Urine RBC 6312 /hpf (0 - 3) Urine Microscopic WBC 130 /HPF (0-3) H Urine Squamous Epithelial Cells None seen /hpf (<5) Urine Bacteria None seen /hpf (None Seen) Urine Glucose Normal mg/dL (Normal) Labs and/or images reviewed: Labs reviewed by me, Image(s) reviewed by me Assessment/Plan Assessment/Plan Acute symptomatic anemia hemoglobin 6.5, improved to 8.7 after 2 unit RBC transfusion Acute urinary retention : Hein catheter, urology consult by Dr. Larson appreciated, three-way bladder irrigation, cystoscopy to be scheduled Acute bilateral hydronephrosis History of prostate cancer status post prostatectomy 14 years ago Hematuria FERMIN on CKD: Consult by appreciated Acute generalized weakness Patient getting Hein catheter inserted in the operating room tomorrow Plan discussed with: Patient My Orders Orders - JULES MCKEON MD Procedure Category Date Status Time Blood Culture NIRMALA 03/06/25 In Process 13:38 Urine Bacterial NIRMALA 03/06/25 Logged Culture 13:38 Ceftriaxone 1gm/50ml PHA 03/07/25 In Process D5w (Rocephin) 09:00 * Urology Consult CONS 03/06/25 Transmitted 13:40 Psa Total+% Free LAB 03/06/25 In Process 13:47 Communication Order ORDERS 03/07/25 Verified 12:56 Date of Service: Mar 07, 2025 Billing Provider: JULES MCKEON MD Common Visit Codes: [id number] INP/OBS CARE(HIGH) JULES MCKEON MD Mar 07, 2025 13:15
[2025-03-07 13:20] VITALS: BP 145/84; PULSE 81; RESP 18; TEMP 98.1; O2SAT 97
--- NOTE | 2025-03-07 13:36 | DVH ---
CHEST RADIOGRAPH Indication: pre-op Technique: Single frontal view of the chest was obtained Comparison: None FINDINGS: The cardiac silhouette is unremarkable. The lungs demonstrate 10 mm left lower lobe nodule versus nip ple shadow. The pulmonary vasculature is unremarkable. There is no pleural effusion.. There is no pne umothorax. IMPRESSION: 10 mm left lower lung nodule versus nipple shadow. Recommend repeat chest with nipple marker, AP and lateral views. []
[2025-03-07] MEDS: TAMSULOSIN HYDROCHLORIDE 0.4 MG CAP PO SCH (16:56)
--- NOTE | 2025-03-07 16:56 | DVHCONRES ---
Date Seen: Mar 07, 2025 Resident Creating Document: GILBERTO MERLOS RESIDENT Referring Physician Pepe Marinelli History of Present Illness Patient is 79 years old male with a history of neoplasm prostate, history of prostatectomy, external hemorrhoids came with a complaint of generalized weakness and hematuria for 2 weeks. As per patient patient has also had retention of urine. Initial lab workup revealed severe anemia with a hemoglobin 6.5, thrombocytosis with a platelet 451, elevated serum creatinine 2.96, BUN 32, CT abdomen pelvis revealed- Bilateral pyelocaliectasis. Mucosal thickening of the bladder wall on the left measuring 6.9 by 2.5 cm. CXR- 10 mm left lower lung nodule versus nipple shadow. Urinalysis revealed leukocyte esterase 2+, RBC 6312, WBC 130, bacteria none Post admission patient had 2 units of blood transfusion so far. Patient was seen today for clinical evaluation H&H stable Blood culture no growth so far Patient was seen by Nephrology, recommendation reviewed and appreciated Patient was seen by Urology, plan is for cysto and TURBT TBA Plan is to put a 3 way Heni for CBI tomorrow Past Medical History History of malignant neoplasm of prostate, status post prostatectomy, external hemorrhoids Past Surgical History History of prostatectomy Allergies: Coded Allergies: NO KNOWN ALLERGIES (Unverified , 03/05/25) Home Meds No Active Prescriptions or Reported Meds Current Medications Current Medications Medications (Trade) Dose Ordered Sig/Julia Route PRN Reason Start Time Stop Time Status Last Admin Ceftriaxone Sodium 50 ml @ 100 mls/hr DAILY@09 IV 03/07/25 09:00 03/07/25 09:37 Tamsulosin HCl (Flomax) 0.4 mg QPM PO 03/07/25 18:00 Morphine Sulfate 2 mg Q30M PRN IV FOR CHEST PAIN 03/07/25 11:00 Review of Systems Allergy- NKDA Cardiovascular- deny acute chest pain or shortness of breath or cough or palpitation Respiratory denies cough or short of breath or wheezing Gastrointestinal- denies any rectal bleeding, nausea or vomiting Musculoskeletal-denies acute joint swelling or tenderness or redness Neurological- denies acute dysarthria, dysphagia, change in vision Psychiatry- denies depression or SI or HI Skin- denies acute rash or purpura Vital Signs Vital Signs Date Time Temp Pulse Resp B/P (MAP) Pulse Ox O2 Delivery O2 Flow Rate FiO2 03/07/25 13:20 98.1 81 18 145/84 (104) 97 98.1 03/07/25 08:22 Room Air* 0 21 Physical Exam General examination- awake, alert, oriented HEENT- PEERLA, no acute nasal discharge Cardiovascular- S1-S2 audible, rate and rhythm regular, no murmur Respiratory- CTAB, no wheeze or rhonchi Gastrointestinal-suprapubic tenderness+, bowel sound+. Musculoskeletal-no acute joint swelling or tenderness or redness Lower extremity- no leg edema Genitourinary-suprapubic tenderness+ Neurological- cranial nerves intact, no acute dysarthria or dysphagia Psychiatry- denies depression or SI or HI Skin- no acute rash or purpura Labs/Diagnostic Data Labs Test 03/06/25 15:45 03/06/25 07:02 03/06/25 04:08 03/05/25 20:00 Range/Units White Blood Count 8.2 4.4-10.8 10^3/uL Red Blood Count 3.12 L 4.5-5.90 10^6/uL Hemoglobin 8.7 #L 13.5-17.5 g/dL Hematocrit 26.0 #L 41.0-53.0 % Mean Corpuscular Volume 83.4 # 80.0-100.0 fL Mean Corpuscular Hemoglobin 27.9 L 28.0-32.0 pg Mean Corpuscular Hemoglobin Concent 33.5 32.0-36.0 g/dL Red Cell Distribution Width 18.2 H 11.8-14.3 % Platelet Count 402 140-450 10^3/uL Mean Platelet Volume 7.9 6.9-10.8 fL Neutrophils (%) (Auto) 87.0 H 37.0-80.0 % Lymphocytes (%) (Auto) 6.4 L 10.0-50.0 % Monocytes (%) (Auto) 6.2 0.0-12.0 % Eosinophils (%) (Auto) 0.2 0.0-7.0 % Basophils (%) (Auto) 0.2 0.0-2.0 % Neutrophils # (Auto) 7.2 1.6-8.6 10 ^3/uL Lymphocytes # (Auto) 0.5 0.4-5.4 10 ^3/uL Monocytes # (Auto) 0.5 0-1.3 10 ^3/uL Eosinophils # (Auto) 0 0-0.8 10 ^3/uL Basophils # (Auto) 0 0-0.2 10 ^3/uL Nucleated Red Blood Cells 0.1 % Sodium Level 143 136-145 mmol/L Potassium Level 4.3 3.5-5.1 mmol/L Chloride Level 111 H 98-107 mmol/L Carbon Dioxide Level 18 L 20-31 mmol/L Anion Gap 14 5-15 Blood Urea Nitrogen 30 H 9-23 mg/dL Creatinine 3.41 H 0.700-1.30 mg/dL Glomerular Filtration Rate Calc 18 >90 mL/min BUN/Creatinine Ratio 8.8 L 10.0-20.0 Serum Glucose 95 74-106 mg/dL Calcium Level 9.2 8.7-10.4 mg/dL Phosphorus Level 4.7 2.4-5.1 mg/dL Magnesium Level 1.9 1.6-2.6 mg/dL Total Bilirubin 0.3 0.2-1.0 mg/dL Aspartate Amino Transferase (AST) 14 <34 U/L Alanine Aminotransferase (ALT) < 9 7-40 U/L Alkaline Phosphatase 19 L 46-116 U/L Total Protein 6.4 5.7-8.2 g/dL Albumin 3.9 3.2-4.8 g/dL Vitamin D 25-Hydroxy 22.0 L 30.0-100 ng/mL Parathyroid Hormone (Intact) 109.4 H 18.4-80.1 pg/mL SARS-CoV-2 Antigen (Rapid) Negative NEGATIVE Urine Color Light-red Yellow Urine Clarity Ex.turbid Clear Urine pH 6.5 5.0-9.0 Urine Specific [place] 1.011 1.001-1.035 Urine Protein 2+ H Negative Urine Ketones Negative Negative Urine Blood 3+ H Negative /uL Urine Nitrite Negative Negative Urine Bilirubin Negative Negative Urine Urobilinogen Normal Negative mg/dL Urine Leukocyte Esterase 2+ Negative /uL Urine RBC 6312 0 - 3 /hpf Urine Microscopic WBC 130 H 0-3 /HPF Urine Squamous Epithelial Cells None seen <5 /hpf Urine Bacteria None seen None Seen /hpf Urine Glucose Normal Normal mg/dL Test 03/05/25 18:30 Range/Units Prothrombin Time 10.9 9.3-11.8 sec Prothrombin Time INR 1.03 0.9-1.15 Activated Partial Thromboplast Time 26.3 24.5-34.5 SEC Lactic Acid Level 0.7 0.4-2.0 mmol/L Microbiology Date/Time Source Procedure Growth Status 03/06/25 15:50 Blood Blood Culture - Preliminary NO GROWTH AFTER 24 HOURS OF INCUBATION. Resulted Assessment Assessment and plan Symptomatic anemia Acute hematuria Acute retention of urine FERMIN likely due to hematuria History of neoplasm of prostate, history of prostatectomy Pyelocaliectasis Events H&H stable Blood culture no growth so far Patient was seen by Nephrology, recommendation reviewed and appreciated Patient was seen by Urology, plan is for cysto and TURBT TBA Plan is to put a 3 way Hein for CBI tomorrow Plan Ordered stool occult blood test to rule out any GI bleeding Ordered CBC, BMP Monitor CBC, BMP Patient was seen by Urology, plan is for cysto and TURBT TBA Plan is to put a 3 way Hein for CBI tomorrow Monitor intake output Continue IV antibiotic Continue tamsulosin Plan discussed with Dr. Magali Mcintyre , nursing staff, Total time spent on patient evaluation, chart review, assessment and plan, discussion discussion >35 minutes Plan discussed with: Patient, Other (RN) GILBERTO MERLOS RESIDENT Mar 07, 2025 16:56
[2025-03-07 17:16] VITALS: BP 149/90; PULSE 80; RESP 16; TEMP 97.5; O2SAT 98
[2025-03-07] MEDS: PANTOPRAZOLE 40 MG TAB PO ONE (17:21)
[2025-03-07 17:30] LABS: Hematocrit 27.1 % (41.0-53.0); Hemoglobin 9.0 g/dL (13.5-17.5); Mean Corpuscular Hemoglobin 27.5 pg (28.0-32.0); Mean Corpuscular Volume 82.7 fL (80.0-100.0); Nucleated Red Blood Cells % 0.0 %
[2025-03-07 17:39] LABS: Chloride 107 mmol/L (98-107); Potassium 4.1 mmol/L (3.5-5.1); Sodium 138 mmol/L (136-145)
[2025-03-07 17:40] LABS: Anion Gap 7 (5-15); Carbon Dioxide 24 mmol/L (20-31)
[2025-03-07 17:41] LABS: Calcium 9.2 mg/dL (8.7-10.4)
[2025-03-07 17:45] LABS: Glucose 97 mg/dL (74-106)
[2025-03-07 17:46] LABS: BUN/Creatinine Ratio 9.8 (10.0-20.0); Blood Urea Nitrogen 19 mg/dL (9-23)
[2025-03-07 20:00] VITALS: PULSE 100; PULSE 94
[2025-03-07 20:30] VITALS: BP 149/94; PULSE 94; RESP 16; TEMP 97.6; O2SAT 97
[2025-03-08] VITALS (9 sets, daily range): BP systolic 139–164; BP diastolic 85–100; PULSE 68–108; RESP 17–18; TEMP 97.4–98.3; O2SAT 93–100
[2025-03-08] MEDS: PANTOPRAZOLE 40 MG TAB PO SCH (05:18)
[2025-03-08 05:20] LABS: Protein, Urine 276.1 mg/dL (1-14)
[2025-03-08 06:23] LABS: Anion Gap 11 (5-15); Carbon Dioxide 22 mmol/L (20-31); Chloride 107 mmol/L (98-107); Potassium 3.6 mmol/L (3.5-5.1); Sodium 140 mmol/L (136-145)
[2025-03-08 06:24] LABS: Calcium 9.3 mg/dL (8.7-10.4)
[2025-03-08 06:27] LABS: Hematocrit 27.2 % (41.0-53.0); Hemoglobin 9.1 g/dL (13.5-17.5); Mean Corpuscular Hemoglobin 27.9 pg (28.0-32.0); Mean Corpuscular Volume 83.7 fL (80.0-100.0); Nucleated Red Blood Cells % 0.0 %
[2025-03-08 06:29] LABS: BUN/Creatinine Ratio 8.7 (10.0-20.0); Blood Urea Nitrogen 16 mg/dL (9-23); Glucose 83 mg/dL (74-106)
[2025-03-08] MEDS: HYDROcodone-ACET 5/325MG TAB PO PRN (07:36)
[2025-03-08 08:06] LABS: Prostate Specific Antigen 2.1 ng/mL (0.0-4.0)
--- NOTE | 2025-03-08 08:15 | ECG ---
[facility] Test Date: 2025-03-07 Test Time: 12:38:30 Pat Name: MARLENE ELY Department: Room: 0277T A Gender: M Kiln Puller: gisela : 1945 Requested By: TATI VSAQUEZ Order Number: [id number] Reading MD: Chris Hernandez Measurements Intervals [place] Rate: 81 P: 57 AR: 141 QRS: 3 QRSD: 91 T: 34 QT: 366 QTc: 425 Interpretive Statements Sinus rhythm Low voltage, extremity and precordial leads Electronically Signed On 03-08-2025 22:18:59 PDT by Chris Hernandez Please click the below link to view image of tracing.
--- NOTE | 2025-03-08 11:54 | DVHPN2 ---
Progress Note Date Seen: Mar 08, 2025 Medical Necessity Reason Pt with a Central, PICC or Fol: No Subjective Patient reports: No new complaints Other Systems: Patient seen and examined by myself today in follow-up Objective vital signs Vital Sign Date Time Temp Pulse Resp B/P (MAP) Pulse Ox O2 Delivery O2 Flow Rate FiO2 03/08/25 09:41 74 152/94 (113) 03/08/25 07:55 Room Air* 0 21 03/08/25 05:05 97.9 18 96 97.9 Total Intake and Output 03/07/25 03/07/25 03/08/25 15:00 23:00 07:00 Intake Total 50 ml 2340 ml 0 ml Output Total 900 ml 1001 ml Balance 50 ml 1440 ml -1001 ml medications Current Medications Medications Dose Ordered Sig/Julia Route Start Time Stop Time Status Last Admin Dose Admin Acetaminophen/ Hydrocodone Bitart 1 tab Q4HP PRN PO 03/05/25 21:15 03/08/25 07:36 1 TAB Ondansetron HCl 4 mg Q4HP PRN IV 03/05/25 21:15 Docusate Sodium 100 mg BIDPRN PRN PO 03/05/25 21:15 Acetaminophen 650 mg Q6HP PRN PO 03/05/25 21:15 Sodium Chloride 1,000 ml @ 75 mls/hr [id number] IV 03/05/25 21:15 03/08/25 11:11 75 MLS/HR Nitroglycerin 0.4 mg Q5MINP PRN SL 03/05/25 22:45 Morphine Sulfate 2 mg Q30M PRN IV 03/05/25 22:45 Cancel Ceftriaxone Sodium 50 ml @ 100 mls/hr DAILY@09 IV 03/07/25 09:00 03/08/25 08:38 100 MLS/HR Tamsulosin HCl 0.4 mg QPM PO 03/07/25 18:00 03/07/25 16:56 0.4 MG Morphine Sulfate 2 mg Q30M PRN IV 03/07/25 11:00 Pantoprazole Sodium 40 mg DAILY@0600 PO 03/08/25 06:00 Examination: LUNGS:Normal, CVS:Normal, MSK:Normal laboratory and microbiology Laboratory Tests 03/08/25 05:24 Test 03/08/25 05:24 Range/Units Serum Glucose 83 74-106 mg/dL Microbiology Date/Time Source Procedure Growth Status 03/06/25 15:50 Blood Blood Culture - Preliminary NO GROWTH AFTER 24 HOURS OF INCUBATION. Resulted Problem List/Assessment/Plan Problem List/Assessment/Plan Acute kidney injury superimposed Chronic Kidney Disease stage IIIB secondary hemodynamic mediated Urinary retention Hematuria History of prostate cancer Hypertension Anemia due to blood loss Metabolic acidosis Recommendations Kidney function slightly improving Increased urine output Hein catheter Continuous bladder irrigation Strict I&Os I agree with IV fluid hydration Packed red blood cell transfusion p.r.n. Blood pressure control Urology consult We will continue to follow Plan discussed with: Patient CC Plasma Assessment Blood Product Administration S: [id number] RUTH SHAW MD Mar 08, 2025 11:54
--- NOTE | 2025-03-08 12:43 | DVHPN2 ---
Reviewed: Care Plan, H&P, Labs, Medications, Previous Orders, Radiology Changes from previous H/P or p: No Changes Eyes: No Pain, No Vision change, No Conjunctivae inflammation, No Eyelid inflammation, No Other, No Redness ENT: No Ear pain, No Ear discharge, No Nose pain, No Nose discharge, No Nose congestion, No Mouth pain, No Mouth swelling, No Throat pain, No Throat swelling, No Other Cardiovascular: No Chest Pain, No Palpitations, No Orthopnea, No Paroxysmal Noc. Dyspnea, No Edema, No Lt Headedness, No Other Respiratory: No Cough, No Dry, No Shortness of breath, No SOB with excertion, No Wheezing, No Hemoptysis, No Pleuritic Pain, No Sputum, No Other Gastrointestinal: No Nausea, No Vomiting, No Abdominal Pain, No Diarrhea, No Constipation, No Melena, No Hematochezia, No Other Genitourinary: No Dysuria, No Frequency, No Incontinence; Hematuria, Retention; No Other Musculoskeletal: No other, No neck pain, No shoulder pain, No arm pain, No back pain, No hand pain, No leg pain, No foot pain Skin: No Rash, No Lesions, No Jaundice, No Bruising, No Other Objective Vitals Vital Signs Date Time Temp Pulse Resp B/P (MAP) Pulse Ox O2 Delivery O2 Flow Rate FiO2 03/08/25 09:41 74 152/94 (113) 03/08/25 07:55 Room Air* 0 21 03/08/25 05:05 97.9 18 96 97.9 Intake/Output Intake and Output 03/08/25 07:00 Intake Total 2390 ml Output Total 1901 ml Balance 489 ml Intake Oral 1200 ml IV Total 1190 ml Output Urine Total 1900 ml Stool Total 1 ml # Voids 2 Medications Current Medications Medications Dose Ordered Sig/Julia Route Start Time Stop Time Status Last Admin Dose Admin Acetaminophen/ Hydrocodone Bitart 1 tab Q4HP PRN PO 03/05/25 21:15 03/08/25 07:36 1 TAB Ondansetron HCl 4 mg Q4HP PRN IV 03/05/25 21:15 Docusate Sodium 100 mg BIDPRN PRN PO 03/05/25 21:15 Acetaminophen 650 mg Q6HP PRN PO 03/05/25 21:15 Sodium Chloride 1,000 ml @ 75 mls/hr [id number] IV 03/05/25 21:15 03/08/25 11:11 75 MLS/HR Nitroglycerin 0.4 mg Q5MINP PRN SL 03/05/25 22:45 Morphine Sulfate 2 mg Q30M PRN IV 03/05/25 22:45 Cancel Ceftriaxone Sodium 50 ml @ 100 mls/hr DAILY@09 IV 03/07/25 09:00 03/08/25 08:38 100 MLS/HR Tamsulosin HCl 0.4 mg QPM PO 03/07/25 18:00 03/07/25 16:56 0.4 MG Morphine Sulfate 2 mg Q30M PRN IV 03/07/25 11:00 Pantoprazole Sodium 40 mg DAILY@0600 PO 03/08/25 06:00 Laboratory Results Laboratory Tests 03/08/25 05:24 Chemistry Test 03/07/25 17:18 03/08/25 05:24 Calcium Level 9.2 mg/dL (8.7-10.4) 9.3 mg/dL (8.7-10.4) Urinalysis Test 03/05/25 20:00 03/08/25 04:33 Urine Color Light-red (Yellow) Urine Clarity Ex.turbid (Clear) Urine pH 6.5 (5.0-9.0) Urine Specific [place] 1.011 (1.001-1.035) Urine Protein 2+ (Negative) H Urine Ketones Negative (Negative) Urine Blood 3+ /uL (Negative) H Urine Nitrite Negative (Negative) Urine Bilirubin Negative (Negative) Urine Urobilinogen Normal mg/dL (Negative) Urine Leukocyte Esterase 2+ /uL (Negative) Urine RBC 6312 /hpf (0 - 3) Urine Microscopic WBC 130 /HPF (0-3) H Urine Squamous Epithelial Cells None seen /hpf (<5) Urine Bacteria None seen /hpf (None Seen) Urine Glucose Normal mg/dL (Normal) Urine Creatinine 69.39 mg/dL (30.0-125.0) Urine Protein/Creatinine Ratio 3.98 Urine Sodium 98 mmol/L (40-220) Urine Total Protein 276.1 mg/dL (1-14) H Microbiology Microbiology Date/Time Source Procedure Growth Status 03/06/25 15:50 Blood Blood Culture - Preliminary NO GROWTH AFTER 24 HOURS OF INCUBATION. Resulted Labs and/or images reviewed: Labs reviewed by me, Image(s) reviewed by me Assessment/Plan Assessment/Plan Acute symptomatic anemia hemoglobin 6.5, improved to 8.7 after 2 unit RBC transfusion Acute urinary retention : Hein catheter, urology consult by Dr. Larson appreciated, three-way bladder irrigation, cystoscopy to be scheduled Acute bilateral hydronephrosis History of prostate cancer status post prostatectomy 14 years ago Hematuria FERMIN on CKD: Consult by appreciated Acute generalized weakness Patient getting Hein catheter inserted in the operating room today Plan discussed with: Patient My Orders Orders - JULES MCKEON MD Procedure Category Date Status Time Communication Order ORDERS 03/07/25 Transmitted 12:56 * Gi [employer] CONS 03/07/25 Transmitted 13:26 Date of Service: Mar 08, 2025 Billing Provider: JULES MCKEON MD Common Visit Codes: [id number] INP/OBS CARE(HIGH) JULES MCKEON MD Mar 08, 2025 12:43
[2025-03-08] MEDS ORDERED: fentaNYL CITRATE 100 MCG/2 ML VL ONE (14:10)
[2025-03-08] MEDS ORDERED: MIDAZOLAM HCL 2MG/2ML 2ml VIAL (1mg/ml) ONE (14:10)
[2025-03-08] MEDS: CIPROFLOXACIN 400MG/200ML 200 ML IV ONE (14:45)
[2025-03-08] MEDS ORDERED: PROPOFOL 10 MG/ML 20 ML IV ONE (15:07)
[2025-03-08] MEDS ORDERED: ONDANSETRON HCL 4 MG/2 ML VIAL ONE (15:07)
[2025-03-08] MEDS: ONDANSETRON HCL 4 MG/2 ML VIAL IV ONE (15:30)
[2025-03-08] MEDS ORDERED: MORPHINE SULFATE 4 MG/ML SYR/VIAL IV PRN (15:30)
[2025-03-08] MEDS ORDERED: MIDAZOLAM HCL 2MG/2ML 2ml VIAL (1mg/ml) IV PRN (15:30)
[2025-03-08] MEDS: hydrALAZINE HCL 20 MG/ML VL IV PRN (17:17)
--- NOTE | 2025-03-08 17:20 | DVHPN2 ---
Progress Note Date Seen: Mar 08, 2025 Resident Creating Document: GILBERTO MERLOS RESIDENT Medical Necessity Reason Pt with a Central, PICC or Fol: No Subjective Review of Systems Labs and Chart reviewed Negative for stool occult blood test H&H stable Patient is due for placement of Hein's catheter today Blood culture no growth so far On antibiotic ceftriaxone and tamsulosin Objective vital signs Vital Sign Date Time Temp Pulse Resp B/P (MAP) Pulse Ox O2 Delivery O2 Flow Rate FiO2 03/08/25 13:00 97.8 87 18 153/95 (114) 97 97.8 03/08/25 07:55 Room Air* 0 21 Total Intake and Output 03/07/25 03/07/25 03/08/25 15:00 23:00 07:00 Intake Total 50 ml 2340 ml 0 ml Output Total 900 ml 1001 ml Balance 50 ml 1440 ml -1001 ml medications Current Medications Medications Dose Ordered Sig/Julia Route Start Time Stop Time Status Last Admin Dose Admin Acetaminophen/ Hydrocodone Bitart 1 tab Q4HP PRN PO 03/05/25 21:15 03/08/25 07:36 1 TAB Ondansetron HCl 4 mg Q4HP PRN IV 03/05/25 21:15 Docusate Sodium 100 mg BIDPRN PRN PO 03/05/25 21:15 Acetaminophen 650 mg Q6HP PRN PO 03/05/25 21:15 Sodium Chloride 1,000 ml @ 75 mls/hr [id number] IV 03/05/25 21:15 03/08/25 11:11 75 MLS/HR Nitroglycerin 0.4 mg Q5MINP PRN SL 03/05/25 22:45 Morphine Sulfate 2 mg Q30M PRN IV 03/05/25 22:45 Cancel Ceftriaxone Sodium 50 ml @ 100 mls/hr DAILY@09 IV 03/07/25 09:00 03/08/25 08:38 100 MLS/HR Tamsulosin HCl 0.4 mg QPM PO 03/07/25 18:00 03/07/25 16:56 0.4 MG Morphine Sulfate 2 mg Q30M PRN IV 03/07/25 11:00 Pantoprazole Sodium 40 mg DAILY@0600 PO 03/08/25 06:00 laboratory and microbiology Laboratory Tests 03/08/25 05:24 Test 03/08/25 05:24 Range/Units Serum Glucose 83 74-106 mg/dL Microbiology Date/Time Source Procedure Growth Status 03/06/25 15:50 Blood Blood Culture - Preliminary NO GROWTH AFTER 48 HOURS OF INCUBATION. Resulted Problem List/Assessment/Plan Problem List/Assessment/Plan Assessment and plan Symptomatic anemia Acute hematuria Acute retention of urine FERMIN likely due to hematuria History of neoplasm of prostate, history of prostatectomy Pyelocaliectasis Events Negative for stool occult blood test H&H stable Patient is due for placement of Hein's catheter today Blood culture no growth so far On antibiotic ceftriaxone and tamsulosin Plan Monitor CBC, BMP Patientis is for cysto and TURBT TBA and [address] way Hein for CBI Monitor intake output Continue IV antibiotic Continue tamsulosin Plan discussed with Dr. Magali Mcintyre , nursing staff, Total time spent on patient evaluation, chart review, assessment and plan, discussion discussion >35 minutes Plan discussed with: Patient, Other (RN Plan discussed with: Patient, Other (RN) CC Plasma Assessment Blood Product Administration S: [id number] GILBERTO MERLOS RESIDENT Mar 08, 2025 17:20
[2025-03-08] MEDS: HYDROmorphone HCL 2 MG/ML VL/or syr IV PRN (17:29)
--- NOTE | 2025-03-08 17:29 | DVHNC2 ---
Procedure - OPERATIVE REPORT Pre-op. Diagnosis: Bladder tumor/mass History of prostate cancer, s/p radical prostatectomy 2017 Gross hematuria with clot retention Unable to place goodman catheter Post-op. Diagnosis: Same as pre-op diagnosis Operation: Transurethral resection of bladder tumors Anesthesia: General Indications: Patient is found to have large bladder mass with gross hematuria and urinary retention. Goodman catheter could not be placed. He has PSA 2.1 s/p RP in 2017. He has agreed to undergo cystoscopy with TURBT. Details of Procedure: Indications, risks, complications, alternatives and benefits of transurethral resection of bladder tumor are discusse with the patient. All questions were encouraged and answered. Patient is aware of risks/complications including but not limited to infection, bleeding, bladder injury requiring additional procedures, urinary incontinence and possible need for additional procedures. Patient consented to proceed. Patient is taken to the operating room and underwent appropriate anesthesia. After positioning in lithotomy, area of the genitalia is prepped and draped in usual sterile fashion. Resecting element on the resectoscope with 30 degree lens is used to access the bladder and incompletely remove the identified bladder NS irrigation is used with bipolar cautery unit for hemostasis. There wer metallic staple like objects removed from the anterior bladder neck during the resection of tumors. The reported 6 cm x 3 cm left sided bladder mass is incompletely resected due to heavy bleedings encountered. Hemostasis is achieved. [address] Goodman catheter is placed for CBI. Specimens: Bladder tumors and metallic FBs Complications: None Findings: Prostate absent from radical prostatectomy done in 2017. PSA is elevated at 2.1 (it should be 0.1 or less). Complete hemostasis is not obtained due to massive tumor size and bleeding. Notes: Consult IR service for possible embolization of the blood supply to the left side of bladder TATI VASQUEZ MD Mar 08, 2025 17:29
[2025-03-08] MEDS: MORPHINE SULFATE 4 MG/ML SYR/VIAL ONE (18:04)
[2025-03-08] MEDS: MORPHINE SULFATE 4 MG/ML SYR/VIAL IV ONE (18:04)
[2025-03-08] MEDS: ACETAMINOPHEN 650 MG RECT SUPP PR ONE (18:10)
[2025-03-08 19:27] LABS: Hematocrit 30.8 % (41.0-53.0); Hemoglobin 10.1 g/dL (13.5-17.5); Mean Corpuscular Hemoglobin 27.2 pg (28.0-32.0); Mean Corpuscular Volume 83.2 fL (80.0-100.0)
[2025-03-08 19:48] LABS: Total Cells Counted 100.0 (100)
[2025-03-09] VITALS (10 sets, daily range): BP systolic 149–165; BP diastolic 81–96; PULSE 70–90; RESP 12–20; TEMP 97.9–98.8; O2SAT 93–98
[2025-03-09] MEDS: MORPHINE SULFATE INJ 2 MG/ml SYRG IV ONE (07:15)
[2025-03-09] MEDS: KETOROLAC TROMETH 30 MG/ML 1ML VIAL IV PRN (09:03)
--- NOTE | 2025-03-09 09:49 | DVHPN2 ---
Reviewed: Care Plan, H&P, Labs, Medications, Previous Orders, Radiology Changes from previous H/P or p: No Changes Eyes: No Pain, No Vision change, No Conjunctivae inflammation, No Eyelid inflammation, No Other, No Redness ENT: No Ear pain, No Ear discharge, No Nose pain, No Nose discharge, No Nose congestion, No Mouth pain, No Mouth swelling, No Throat pain, No Throat swelling, No Other Cardiovascular: No Chest Pain, No Palpitations, No Orthopnea, No Paroxysmal Noc. Dyspnea, No Edema, No Lt Headedness, No Other Respiratory: No Cough, No Dry, No Shortness of breath, No SOB with excertion, No Wheezing, No Hemoptysis, No Pleuritic Pain, No Sputum, No Other Gastrointestinal: No Nausea, No Vomiting, No Abdominal Pain, No Diarrhea, No Constipation, No Melena, No Hematochezia, No Other Genitourinary: No Dysuria, No Frequency, No Incontinence; Hematuria, Retention; No Other Musculoskeletal: No other, No neck pain, No shoulder pain, No arm pain, No back pain, No hand pain, No leg pain, No foot pain Skin: No Rash, No Lesions, No Jaundice, No Bruising, No Other Objective Vitals Vital Signs Date Time Temp Pulse Resp B/P (MAP) Pulse Ox O2 Delivery O2 Flow Rate FiO2 03/09/25 09:00 98.8 80 20 165/81 (109) 95 98.8 03/09/25 07:57 Room Air* 0 21 Intake/Output Intake and Output 03/09/25 07:00 Intake Total 1450 ml Output Total 48825 ml Balance -78146 ml Intake Oral 100 ml IV Total 1350 ml Output Urine Total 36813 ml Stool Total 3 ml Medications Current Medications Medications Dose Ordered Sig/Julia Route Start Time Stop Time Status Last Admin Dose Admin Acetaminophen/ Hydrocodone Bitart 1 tab Q4HP PRN PO 03/05/25 21:15 03/09/25 04:25 1 TAB Ondansetron HCl 4 mg Q4HP PRN IV 03/05/25 21:15 Docusate Sodium 100 mg BIDPRN PRN PO 03/05/25 21:15 Acetaminophen 650 mg Q6HP PRN PO 03/05/25 21:15 Sodium Chloride 1,000 ml @ 75 mls/hr [id number] IV 03/05/25 21:15 03/09/25 09:03 75 MLS/HR Nitroglycerin 0.4 mg Q5MINP PRN SL 03/05/25 22:45 Morphine Sulfate 2 mg Q30M PRN IV 03/05/25 22:45 Cancel Ceftriaxone Sodium 50 ml @ 100 mls/hr DAILY@09 IV 03/07/25 09:00 03/09/25 09:02 100 MLS/HR Tamsulosin HCl 0.4 mg QPM PO 03/07/25 18:00 03/07/25 16:56 0.4 MG Morphine Sulfate 2 mg Q30M PRN IV 03/07/25 11:00 Pantoprazole Sodium 40 mg DAILY@0600 PO 03/08/25 06:00 Ketorolac Tromethamine 30 mg Q6HPRN PRN IV 03/09/25 08:30 03/14/25 08:29 03/09/25 09:03 30 MG Laboratory Results Laboratory Tests 03/08/25 05:24 03/08/25 19:17 Urinalysis Test 03/05/25 20:00 03/08/25 04:33 Urine Color Light-red (Yellow) Urine Clarity Ex.turbid (Clear) Urine pH 6.5 (5.0-9.0) Urine Specific [place] 1.011 (1.001-1.035) Urine Protein 2+ (Negative) H Urine Ketones Negative (Negative) Urine Blood 3+ /uL (Negative) H Urine Nitrite Negative (Negative) Urine Bilirubin Negative (Negative) Urine Urobilinogen Normal mg/dL (Negative) Urine Leukocyte Esterase 2+ /uL (Negative) Urine RBC 6312 /hpf (0 - 3) Urine Microscopic WBC 130 /HPF (0-3) H Urine Squamous Epithelial Cells None seen /hpf (<5) Urine Bacteria None seen /hpf (None Seen) Urine Glucose Normal mg/dL (Normal) Urine Creatinine 69.39 mg/dL (30.0-125.0) Urine Protein/Creatinine Ratio 3.98 Urine Sodium 98 mmol/L (40-220) Urine Total Protein 276.1 mg/dL (1-14) H Microbiology Microbiology Date/Time Source Procedure Growth Status 03/06/25 15:50 Blood Blood Culture - Preliminary NO GROWTH AFTER 48 HOURS OF INCUBATION. Resulted Labs and/or images reviewed: Labs reviewed by me, Image(s) reviewed by me Assessment/Plan Assessment/Plan Acute symptomatic anemia hemoglobin 6.5, improved to 8.7 after 2 unit RBC transfusion Acute urinary retention : Bladder tumor/mass Status post transurethral resection of the bladder tumor by Dr Larson on 03-09-25 Embolization of the left vesical artery by radiologist ordered by Dr. Larson, as complete hemostasis could not be secured during the TURBT procedure Acute bilateral hydronephrosis History of prostate cancer status post radical prostatectomy 2017 Hematuria FERMIN on CKD: Consult by appreciated Acute generalized weakness Plan discussed with: Patient My Orders Orders - JULES MCKEON MD Procedure Category Date Status Time Ketorolac Injection PHA 03/09/25 In Process (Toradol Injection) 08:30 Date of Service: Mar 09, 2025 Billing Provider: JULES MCKEON MD Common Visit Codes: [id number] INP/OBS CARE(HIGH) JULES MCKEON MD Mar 09, 2025 09:49
--- NOTE | 2025-03-09 10:47 | DVHPN2 ---
Progress Note Date Seen: Mar 09, 2025 Medical Necessity Reason Pt with a Central, PICC or Fol: No Subjective Patient reports: No new complaints Other Systems: Patient seen and examined by myself today in follow-up Objective vital signs Vital Sign Date Time Temp Pulse Resp B/P (MAP) Pulse Ox O2 Delivery O2 Flow Rate FiO2 03/09/25 09:00 98.8 80 20 165/81 (109) 95 98.8 03/09/25 07:57 Room Air* 0 21 Total Intake and Output 03/08/25 03/08/25 03/09/25 15:00 23:00 07:00 Intake Total 1350 ml 0 ml 100 ml Output Total 100 ml 71418 ml Balance 1350 ml -100 ml -88880 ml medications Current Medications Medications Dose Ordered Sig/Julia Route Start Time Stop Time Status Last Admin Dose Admin Acetaminophen/ Hydrocodone Bitart 1 tab Q4HP PRN PO 03/05/25 21:15 03/09/25 04:25 1 TAB Ondansetron HCl 4 mg Q4HP PRN IV 03/05/25 21:15 Docusate Sodium 100 mg BIDPRN PRN PO 03/05/25 21:15 Acetaminophen 650 mg Q6HP PRN PO 03/05/25 21:15 Sodium Chloride 1,000 ml @ 75 mls/hr [id number] IV 03/05/25 21:15 03/09/25 09:03 75 MLS/HR Nitroglycerin 0.4 mg Q5MINP PRN SL 03/05/25 22:45 Morphine Sulfate 2 mg Q30M PRN IV 03/05/25 22:45 Cancel Ceftriaxone Sodium 50 ml @ 100 mls/hr DAILY@09 IV 03/07/25 09:00 03/09/25 09:02 100 MLS/HR Tamsulosin HCl 0.4 mg QPM PO 03/07/25 18:00 03/07/25 16:56 0.4 MG Morphine Sulfate 2 mg Q30M PRN IV 03/07/25 11:00 Pantoprazole Sodium 40 mg DAILY@0600 PO 03/08/25 06:00 Ketorolac Tromethamine 30 mg Q6HPRN PRN IV 03/09/25 08:30 03/14/25 08:29 03/09/25 09:03 30 MG Examination: LUNGS:Normal, CVS:Normal, MSK:Normal laboratory and microbiology Laboratory Tests 03/08/25 19:17 03/08/25 05:24 Test 03/08/25 05:24 Range/Units Serum Glucose 83 74-106 mg/dL Microbiology Date/Time Source Procedure Growth Status 03/06/25 15:50 Blood Blood Culture - Preliminary NO GROWTH AFTER 48 HOURS OF INCUBATION. Resulted Problem List/Assessment/Plan Problem List/Assessment/Plan Acute kidney injury superimposed Chronic Kidney Disease stage IIIB secondary hemodynamic mediated Urinary retention Hematuria History of prostate cancer Hypertension Anemia due to blood loss Metabolic acidosis Recommendations Kidney function continues to improve slowly Increased urine output Hein catheter Continuous bladder irrigation Strict I&Os I agree with IV fluid hydration Packed red blood cell transfusion p.r.n. Blood pressure control Urology consult We will continue to follow Plan discussed with: Patient CC Plasma Assessment Blood Product Administration S: [id number] RUTH SHAW MD Mar 09, 2025 10:47
[2025-03-09] MEDS: LIDOCAINE 2%HCL (LOCAL ANESTH.) INJ 20ML MDV ONE (12:21)
[2025-03-09] MEDS: MIDAZOLAM HCL 2MG/2ML 2ml VIAL (1mg/ml) ONE (12:21)
[2025-03-09] MEDS: fentaNYL CITRATE 100 MCG/2 ML VL ONE (12:21)
[2025-03-09] MEDS: LIDOCAINE 2%HCL (LOCAL ANESTH.) INJ 10ml MDV ONE (12:25)
--- NOTE | 2025-03-09 12:25 | DVHPN2 ---
Progress Note Date Seen: Mar 09, 2025 Resident Creating Document: GILBERTO MERLOS RESIDENT Medical Necessity Reason Pt with a Central, PICC or Fol: No Subjective Review of Systems Patient was seen today at bedside Complained of lower abdominal pain H&H stable Had Hein's catheter placed yesterday by Urology Objective vital signs Vital Sign Date Time Temp Pulse Resp B/P (MAP) Pulse Ox O2 Delivery O2 Flow Rate FiO2 03/09/25 09:00 98.8 80 20 165/81 (109) 95 98.8 03/09/25 07:57 Room Air* 0 21 Total Intake and Output 03/08/25 03/08/25 03/09/25 15:00 23:00 07:00 Intake Total 1350 ml 0 ml 100 ml Output Total 100 ml 79054 ml Balance 1350 ml -100 ml -06444 ml medications Current Medications Medications Dose Ordered Sig/Julia Route Start Time Stop Time Status Last Admin Dose Admin Acetaminophen/ Hydrocodone Bitart 1 tab Q4HP PRN PO 03/05/25 21:15 03/09/25 04:25 1 TAB Ondansetron HCl 4 mg Q4HP PRN IV 03/05/25 21:15 Docusate Sodium 100 mg BIDPRN PRN PO 03/05/25 21:15 Acetaminophen 650 mg Q6HP PRN PO 03/05/25 21:15 Sodium Chloride 1,000 ml @ 75 mls/hr [id number] IV 03/05/25 21:15 03/09/25 09:03 75 MLS/HR Nitroglycerin 0.4 mg Q5MINP PRN SL 03/05/25 22:45 Morphine Sulfate 2 mg Q30M PRN IV 03/05/25 22:45 Cancel Ceftriaxone Sodium 50 ml @ 100 mls/hr DAILY@09 IV 03/07/25 09:00 03/09/25 09:02 100 MLS/HR Tamsulosin HCl 0.4 mg QPM PO 03/07/25 18:00 03/07/25 16:56 0.4 MG Morphine Sulfate 2 mg Q30M PRN IV 03/07/25 11:00 Pantoprazole Sodium 40 mg DAILY@0600 PO 03/08/25 06:00 Ketorolac Tromethamine 30 mg Q6HPRN PRN IV 03/09/25 08:30 03/14/25 08:29 03/09/25 09:03 30 MG laboratory and microbiology Laboratory Tests 03/08/25 19:17 03/08/25 05:24 Test 03/08/25 05:24 Range/Units Serum Glucose 83 74-106 mg/dL Microbiology Date/Time Source Procedure Growth Status 03/08/25 04:33 Voided Urine Urine Culture - Preliminary Resulted 03/06/25 15:50 Blood Blood Culture - Preliminary NO GROWTH AFTER 48 HOURS OF INCUBATION. Resulted Problem List/Assessment/Plan Problem List/Assessment/Plan Assessment and plan Symptomatic anemia Acute hematuria Acute retention of urine FERMIN likely due to hematuria History of neoplasm of prostate, history of prostatectomy Pyelocaliectasis Events Complained of lower abdominal pain H&H stable Patient had Transurethral resection of bladder tumor yesterday Had Hein's catheter placed yesterday by Urology Patient on continuous bladder irrigation Plan Patient is is supposed to get left vesicular artery embolization today Status post transurethral resection of bladder tumor Stat Post Hein's catheter placement Continue bladder irrigation Pain management as per primary care Monitor intake output Continue IV antibiotic Continue tamsulosin Plan discussed with Dr. Magali Mcintyre , nursing staff, Total time spent on patient evaluation, chart review, assessment and plan, discussion discussion >35 minutes Plan discussed with: Patient, Other (RN Plan discussed with: Patient, Other (RN) CC Plasma Assessment Blood Product Administration S: [id number] GILBERTO MERLOS RESIDENT Mar 09, 2025 12:25
[2025-03-09] MEDS: GELATIN 1 SPONGE SIZE 50 TOP ONE (12:48)
[2025-03-09] MEDS: HYDROmorphone HCL 2 MG/ML VL/or syr ONE (13:43)
--- NOTE | 2025-03-09 16:11 | DVH ---
XY PERC.ARTERIAL THROMBECTOMY, HISTORY: Hemorrhagic bladder mass s/p resection with bleeding seen, and pink urine on CBI, hgb 6 s/p 2 units pRBC here for gelfoam embolization of the left vesical artery. PROCEDURE: Informed consent was obtained .The patient was positioned supine on the interventional tab le. The right groin was prepped with chlorhexidine which was allowed to dry and then draped sterilely . Time out was performed. The right common femoral artery was accessed with real-time ultrasound guid ance using a micropuncture set, an image documenting patency recorded to PACS, and a 6 Fr vascular sh eath placed. The left internal iliac artery was catheterized with a C2 catheter and an angiogram was performed in 2 projections. A micro wire and micro catheter were positioned into the left vesical art fan trunk and angiograms were performed in 3 projections. A gelfoam slurry was made, and 3 mL was inj ected to near stasis of the left vesical artery. A completion angiogram was performed of the left ves ical artery and left internal iliac artery. The catheter/sheath were removed and the arteriotomy magdy sed using Angioseal. No immediate complication was identified. DAP FLUOROSCOPY TIME: 15 minutes. CONTRAST USED: 60 mL. SEDATION: Dr. Naga Quarles was personally responsible for the administration of moderate sedation during the procedure performed, including the use of an independent trained observer who had no other duties during the procedure. The drugs utilized were IV fentanyl and versed (see nursing log for details). The total time of supervision by the attending physician was approximately 75 minutes. FINDINGS: Tortuous left internal iliac artery with prominent left vesical artery. Catheterization of the left vesical artery with embolization using gelfoam slurry to near stasis. IMPRESSION: Catheterization of the left vesical artery with embolization using gelfoam slurry to near stasis. Plan: Right leg straight for 2 hours recovery
--- NOTE | 2025-03-09 17:24 | DVHPN2 ---
Progress Note - Dictate Date Seen: Mar 09, 2025 Medical Necessity Reason Pt with a Central, PICC or Fol: Yes The following are medically ne: Goodman Catheter Reason for goodman catheter: Bladder Retention/Obstruc Medical Necessity Reason CBI s/p TURBT. Subjective Comfortable, mild suprapubic tenderness. vital signs Vital Sign Date Time Temp Pulse Resp B/P (MAP) Pulse Ox O2 Delivery O2 Flow Rate FiO2 03/09/25 16:55 98.6 70 20 152/84 (106) 98 98.6 03/09/25 07:57 Room Air* 0 21 Total Intake and Output 03/08/25 03/08/25 03/09/25 15:00 23:00 07:00 Intake Total 1350 ml 0 ml 100 ml Output Total 100 ml 72099 ml Balance 1350 ml -100 ml -74685 ml medications Current Medications Medications Dose Ordered Sig/Julia Route Start Time Stop Time Status Last Admin Dose Admin Acetaminophen/ Hydrocodone Bitart 1 tab Q4HP PRN PO 03/05/25 21:15 03/09/25 04:25 1 TAB Ondansetron HCl 4 mg Q4HP PRN IV 03/05/25 21:15 Docusate Sodium 100 mg BIDPRN PRN PO 03/05/25 21:15 Acetaminophen 650 mg Q6HP PRN PO 03/05/25 21:15 Sodium Chloride 1,000 ml @ 75 mls/hr [id number] IV 03/05/25 21:15 03/09/25 15:50 75 MLS/HR Nitroglycerin 0.4 mg Q5MINP PRN SL 03/05/25 22:45 Morphine Sulfate 2 mg Q30M PRN IV 03/05/25 22:45 Cancel Ceftriaxone Sodium 50 ml @ 100 mls/hr DAILY@09 IV 03/07/25 09:00 03/09/25 09:02 100 MLS/HR Tamsulosin HCl 0.4 mg QPM PO 03/07/25 18:00 03/07/25 16:56 0.4 MG Morphine Sulfate 2 mg Q30M PRN IV 03/07/25 11:00 Pantoprazole Sodium 40 mg DAILY@0600 PO 03/08/25 06:00 Ketorolac Tromethamine 30 mg Q6HPRN PRN IV 03/09/25 08:30 03/14/25 08:29 03/09/25 16:57 30 MG objective Clear urine CBI running at 50%. RN titrating per protocol. laboratory and microbiology Laboratory Tests 03/08/25 19:17 03/08/25 05:24 Test 03/08/25 05:24 Range/Units Serum Glucose 83 74-106 mg/dL Assessment/Plan Continue titration of CBI until clear. Monitor H/H. Problems(with codes): (1) Pyelocaliectasis (2) Hematuria (3) Acute renal failure (4) Acute urinary retention (5) Symptomatic anemia (6) Generalized weakness (7) Personal history of malignant neoplasm of prostate Dietary Evaluation Review Comments: Continue current plan of care Expected Outcomes/Goals: To meet >75% estimated needs Fu 5-7 days Plan discussed with: Patient, Other CC Plasma Assessment Blood Product Administration S: [id number] GABRIELE DOUGLAS NP Mar 09, 2025 17:24
[2025-03-10] VITALS (8 sets, daily range): BP systolic 118–152; BP diastolic 71–94; PULSE 62–89; RESP 16–18; TEMP 97.2–99; O2SAT 94–98
[2025-03-10 07:04] LABS: Chloride 103 mmol/L (98-107); Potassium 4.2 mmol/L (3.5-5.1)
[2025-03-10 07:05] LABS: Anion Gap 13 (5-15)
[2025-03-10 07:06] LABS: Calcium 8.8 mg/dL (8.7-10.4); Carbon Dioxide 19 mmol/L (20-31); Sodium 135 mmol/L (136-145)
[2025-03-10 07:10] LABS: Hemoglobin 8.9 g/dL (13.5-17.5); Nucleated Red Blood Cells % 0.0 %
[2025-03-10 07:11] LABS: BUN/Creatinine Ratio 5.2 (10.0-20.0); Blood Urea Nitrogen 25 mg/dL (9-23); Glucose 83 mg/dL (74-106); Hematocrit 25.8 % (41.0-53.0); Mean Corpuscular Hemoglobin 28.5 pg (28.0-32.0); Mean Corpuscular Volume 82.8 fL (80.0-100.0)
--- NOTE | 2025-03-10 11:52 | DVHPN2 ---
Progress Note Date Seen: Mar 10, 2025 Medical Necessity Reason Pt with a Central, PICC or Fol: Yes The following are medically ne: Goodman Catheter Reason for goodman catheter: Bladder Retention/Obstruc Subjective Patient reports: No new complaints Other Systems: Patient seen and examined by myself today in follow-up Objective vital signs Vital Sign Date Time Temp Pulse Resp B/P (MAP) Pulse Ox O2 Delivery O2 Flow Rate FiO2 03/10/25 09:00 97.7 86 16 136/85 (102) 94 97.7 03/10/25 08:00 Room Air* 0 21 Total Intake and Output 03/09/25 03/09/25 03/10/25 15:00 23:00 07:00 Intake Total 1650 ml 2130 ml 800 ml Output Total 2400 ml 4650 ml 450 ml Balance -750 ml -2520 ml 350 ml medications Current Medications Medications Dose Ordered Sig/Julia Route Start Time Stop Time Status Last Admin Dose Admin Acetaminophen/ Hydrocodone Bitart 1 tab Q4HP PRN PO 03/05/25 21:15 03/10/25 09:17 1 TAB Ondansetron HCl 4 mg Q4HP PRN IV 03/05/25 21:15 Docusate Sodium 100 mg BIDPRN PRN PO 03/05/25 21:15 Acetaminophen 650 mg Q6HP PRN PO 03/05/25 21:15 Sodium Chloride 1,000 ml @ 75 mls/hr [id number] IV 03/05/25 21:15 03/09/25 15:50 75 MLS/HR Nitroglycerin 0.4 mg Q5MINP PRN SL 03/05/25 22:45 Morphine Sulfate 2 mg Q30M PRN IV 03/05/25 22:45 Cancel Ceftriaxone Sodium 50 ml @ 100 mls/hr DAILY@09 IV 03/07/25 09:00 03/10/25 09:16 100 MLS/HR Tamsulosin HCl 0.4 mg QPM PO 03/07/25 18:00 03/09/25 18:31 0.4 MG Morphine Sulfate 2 mg Q30M PRN IV 03/07/25 11:00 Pantoprazole Sodium 40 mg DAILY@0600 PO 03/08/25 06:00 03/10/25 05:44 40 MG Ketorolac Tromethamine 30 mg Q6HPRN PRN IV 03/09/25 08:30 03/14/25 08:29 03/10/25 06:10 30 MG Examination: LUNGS:Normal, CVS:Normal, MSK:Normal laboratory and microbiology Laboratory Tests 03/10/25 06:05 Test 03/10/25 06:05 Range/Units Serum Glucose 83 74-106 mg/dL Microbiology Date/Time Source Procedure Growth Status 03/08/25 04:33 Voided Urine Urine Culture - Final Complete 03/06/25 15:50 Blood Blood Culture - Preliminary NO GROWTH AFTER 72 HOURS OF INCUBATION. Resulted Problem List/Assessment/Plan Problem List/Assessment/Plan Acute kidney injury superimposed Chronic Kidney Disease stage IIIB secondary hemodynamic mediated Urinary retention Hematuria status post Vesical artery immobilization History of prostate cancer Bladder mass Hypertension Anemia due to blood loss Metabolic acidosis Recommendations Kidney function worsened today Increased urine output Goodman catheter Strict I&Os I agree with IV fluid hydration Packed red blood cell transfusion p.r.n. Blood pressure control Urology on board We will continue to follow Plan discussed with: Patient (In follow-up) Dietary Evaluation Review Comments: Continue current plan of care Expected Outcomes/Goals: To meet >75% estimated needs Fu 5-7 days CC Plasma Assessment Blood Product Administration S: [id number] RUTH SHAW MD Mar 10, 2025 11:52
--- NOTE | 2025-03-10 12:06 | DVHPN2 ---
Reviewed: Care Plan, H&P, Labs, Medications, Previous Orders, Radiology Changes from previous H/P or p: No Changes Eyes: No Pain, No Vision change, No Conjunctivae inflammation, No Eyelid inflammation, No Other, No Redness ENT: No Ear pain, No Ear discharge, No Nose pain, No Nose discharge, No Nose congestion, No Mouth pain, No Mouth swelling, No Throat pain, No Throat swelling, No Other Cardiovascular: No Chest Pain, No Palpitations, No Orthopnea, No Paroxysmal Noc. Dyspnea, No Edema, No Lt Headedness, No Other Respiratory: No Cough, No Dry, No Shortness of breath, No SOB with excertion, No Wheezing, No Hemoptysis, No Pleuritic Pain, No Sputum, No Other Gastrointestinal: No Nausea, No Vomiting, No Abdominal Pain, No Diarrhea, No Constipation, No Melena, No Hematochezia, No Other Genitourinary: No Dysuria, No Frequency, No Incontinence; Hematuria, Retention; No Other Musculoskeletal: No other, No neck pain, No shoulder pain, No arm pain, No back pain, No hand pain, No leg pain, No foot pain Skin: No Rash, No Lesions, No Jaundice, No Bruising, No Other Objective Vitals Vital Signs Date Time Temp Pulse Resp B/P (MAP) Pulse Ox O2 Delivery O2 Flow Rate FiO2 03/10/25 09:00 97.7 86 16 136/85 (102) 94 97.7 03/10/25 08:00 Room Air* 0 21 Intake/Output Intake and Output 03/10/25 07:00 Intake Total 4580 ml Output Total 7500 ml Balance -2920 ml Intake Oral 1800 ml IV Total 2780 ml Output Urine Total 7500 ml Medications Current Medications Medications Dose Ordered Sig/Julia Route Start Time Stop Time Status Last Admin Dose Admin Acetaminophen/ Hydrocodone Bitart 1 tab Q4HP PRN PO 03/05/25 21:15 03/10/25 09:17 1 TAB Ondansetron HCl 4 mg Q4HP PRN IV 03/05/25 21:15 Docusate Sodium 100 mg BIDPRN PRN PO 03/05/25 21:15 Acetaminophen 650 mg Q6HP PRN PO 03/05/25 21:15 Sodium Chloride 1,000 ml @ 75 mls/hr [id number] IV 03/05/25 21:15 03/09/25 15:50 75 MLS/HR Nitroglycerin 0.4 mg Q5MINP PRN SL 03/05/25 22:45 Morphine Sulfate 2 mg Q30M PRN IV 03/05/25 22:45 Cancel Ceftriaxone Sodium 50 ml @ 100 mls/hr DAILY@09 IV 03/07/25 09:00 03/10/25 09:16 100 MLS/HR Tamsulosin HCl 0.4 mg QPM PO 03/07/25 18:00 03/09/25 18:31 0.4 MG Morphine Sulfate 2 mg Q30M PRN IV 03/07/25 11:00 Pantoprazole Sodium 40 mg DAILY@0600 PO 03/08/25 06:00 03/10/25 05:44 40 MG Ketorolac Tromethamine 30 mg Q6HPRN PRN IV 03/09/25 08:30 03/14/25 08:29 03/10/25 06:10 30 MG Laboratory Results Laboratory Tests 03/10/25 06:05 Chemistry Test 03/10/25 06:05 Calcium Level 8.8 mg/dL (8.7-10.4) Urinalysis Test 03/05/25 20:00 03/08/25 04:33 Urine Color Light-red (Yellow) Urine Clarity Ex.turbid (Clear) Urine pH 6.5 (5.0-9.0) Urine Specific [place] 1.011 (1.001-1.035) Urine Protein 2+ (Negative) H Urine Ketones Negative (Negative) Urine Blood 3+ /uL (Negative) H Urine Nitrite Negative (Negative) Urine Bilirubin Negative (Negative) Urine Urobilinogen Normal mg/dL (Negative) Urine Leukocyte Esterase 2+ /uL (Negative) Urine RBC 6312 /hpf (0 - 3) Urine Microscopic WBC 130 /HPF (0-3) H Urine Squamous Epithelial Cells None seen /hpf (<5) Urine Bacteria None seen /hpf (None Seen) Urine Glucose Normal mg/dL (Normal) Urine Creatinine 69.39 mg/dL (30.0-125.0) Urine Protein/Creatinine Ratio 3.98 Urine Sodium 98 mmol/L (40-220) Urine Total Protein 276.1 mg/dL (1-14) H Microbiology Microbiology Date/Time Source Procedure Growth Status 03/08/25 04:33 Voided Urine Urine Culture - Final Complete 03/06/25 15:50 Blood Blood Culture - Preliminary NO GROWTH AFTER 72 HOURS OF INCUBATION. Resulted Labs and/or images reviewed: Labs reviewed by me, Image(s) reviewed by me Assessment/Plan Assessment/Plan Acute symptomatic anemia hemoglobin 6.5, improved to 8.7 after 2 unit RBC transfusion Acute urinary retention : Bladder tumor/mass Status post transurethral resection of the bladder tumor by Dr Larson on 03-09-25 Embolization of the left vesical artery by radiologist ordered by Dr. Larson, as complete hemostasis could not be secured during the TURBT procedure, status post embolization by the Radiologist Dr Quarles Acute bilateral hydronephrosis History of prostate cancer status post radical prostatectomy 2017 Hematuria FERMIN on CKD: Consult by appreciated Acute generalized weakness Plan discussed with: Patient My Orders Orders - JULES MCKEON MD Procedure Category Date Status Time Perc.Arterial XY 03/09/25 Resulted Thrombectomy 14:09 Date of Service: Mar 10, 2025 Billing Provider: UJLES MCKEON MD Common Visit Codes: [id number] INP/OBS CARE(HIGH) JULES MCKEON MD Mar 10, 2025 12:06
--- NOTE | 2025-03-10 16:00 | DVHPN2 ---
Progress Note Date Seen: Mar 10, 2025 Resident Creating Document: GILBERTO MERLOS Medical Necessity Reason Pt with a Central, PICC or Fol: Yes The following are medically ne: Goodman Catheter Reason for goodman catheter: Bladder Retention/Obstruc Subjective Review of Systems Patient is seen today at bedside No acute complaint Leukocytosis resolved Urine culture negative Worsening renal function but increased urine output Patient is being followed by Nephrology On IV antibiotics ceftriaxone Objective vital signs Vital Sign Date Time Temp Pulse Resp B/P (MAP) Pulse Ox O2 Delivery O2 Flow Rate FiO2 03/10/25 09:00 97.7 86 16 136/85 (102) 94 97.7 03/10/25 08:00 Room Air* 0 21 Total Intake and Output 03/09/25 03/09/25 03/10/25 15:00 23:00 07:00 Intake Total 1650 ml 2130 ml 800 ml Output Total 2400 ml 4650 ml 450 ml Balance -750 ml -2520 ml 350 ml medications Current Medications Medications Dose Ordered Sig/Julia Route Start Time Stop Time Status Last Admin Dose Admin Acetaminophen/ Hydrocodone Bitart 1 tab Q4HP PRN PO 03/05/25 21:15 03/10/25 15:44 1 TAB Ondansetron HCl 4 mg Q4HP PRN IV 03/05/25 21:15 Docusate Sodium 100 mg BIDPRN PRN PO 03/05/25 21:15 Acetaminophen 650 mg Q6HP PRN PO 03/05/25 21:15 Sodium Chloride 1,000 ml @ 75 mls/hr [id number] IV 03/05/25 21:15 03/09/25 15:50 75 MLS/HR Nitroglycerin 0.4 mg Q5MINP PRN SL 03/05/25 22:45 Morphine Sulfate 2 mg Q30M PRN IV 03/05/25 22:45 Cancel Ceftriaxone Sodium 50 ml @ 100 mls/hr DAILY@09 IV 03/07/25 09:00 03/10/25 09:16 100 MLS/HR Tamsulosin HCl 0.4 mg QPM PO 03/07/25 18:00 03/09/25 18:31 0.4 MG Morphine Sulfate 2 mg Q30M PRN IV 03/07/25 11:00 Pantoprazole Sodium 40 mg DAILY@0600 PO 03/08/25 06:00 03/10/25 05:44 40 MG Ketorolac Tromethamine 30 mg Q6HPRN PRN IV 03/09/25 08:30 03/14/25 08:29 03/10/25 12:22 30 MG laboratory and microbiology Laboratory Tests 03/10/25 06:05 Test 03/10/25 06:05 Range/Units Serum Glucose 83 74-106 mg/dL Microbiology Date/Time Source Procedure Growth Status 03/08/25 04:33 Voided Urine Urine Culture - Final Complete 03/06/25 15:50 Blood Blood Culture - Preliminary NO GROWTH AFTER 72 HOURS OF INCUBATION. Resulted Problem List/Assessment/Plan Problem List/Assessment/Plan Assessment and plan Symptomatic anemia Acute hematuria Acute retention of urine FERMIN likely due to hematuria History of neoplasm of prostate, history of prostatectomy Pyelocaliectasis Events No acute complaint Leukocytosis resolved Urine culture negative Worsening renal function but increased urine output Patient is being followed by Nephrology On IV antibiotics ceftriaxone Plan Continue IV fluid as prescribed Monitor intake output Continue bladder irrigation Pain management as per primary care Monitor intake output Continue IV antibiotic Continue tamsulosin Monitor CBC, BMP Plan discussed with Dr. Magali Mcintyre , nursing staff, Total time spent on patient evaluation, chart review, assessment and plan, discussion discussion >35 minutes Plan discussed with: Patient, Other (RN Plan discussed with: Patient, Other (RN) Dietary Evaluation Review Comments: Continue current plan of care Expected Outcomes/Goals: To meet >75% estimated needs Fu 5-7 days CC Plasma Assessment Blood Product Administration S: [id number] GILBERTO MERLOS RESIDENT Mar 10, 2025 16:00
[2025-03-10] MEDS: DOCUSATE SOD 100 MG CAP PO PRN (20:22)
[2025-03-11] VITALS (7 sets, daily range): BP systolic 148–161; BP diastolic 88–105; PULSE 72–109; RESP 17–18; TEMP 98–99.4; O2SAT 94–100
[2025-03-11] MEDS: ACETAMINOPHEN 325 MG TAB PO PRN (02:57)
--- NOTE | 2025-03-11 11:34 | DVHPN2 ---
Reviewed: Care Plan, H&P, Labs, Medications, Previous Orders, Radiology Changes from previous H/P or p: No Changes Eyes: No Pain, No Vision change, No Conjunctivae inflammation, No Eyelid inflammation, No Other, No Redness ENT: No Ear pain, No Ear discharge, No Nose pain, No Nose discharge, No Nose congestion, No Mouth pain, No Mouth swelling, No Throat pain, No Throat swelling, No Other Cardiovascular: No Chest Pain, No Palpitations, No Orthopnea, No Paroxysmal Noc. Dyspnea, No Edema, No Lt Headedness, No Other Respiratory: No Cough, No Dry, No Shortness of breath, No SOB with excertion, No Wheezing, No Hemoptysis, No Pleuritic Pain, No Sputum, No Other Gastrointestinal: No Nausea, No Vomiting, No Abdominal Pain, No Diarrhea, No Constipation, No Melena, No Hematochezia, No Other Genitourinary: No Dysuria, No Frequency, No Incontinence; Hematuria, Retention; No Other Musculoskeletal: No other, No neck pain, No shoulder pain, No arm pain, No back pain, No hand pain, No leg pain, No foot pain Skin: No Rash, No Lesions, No Jaundice, No Bruising, No Other Objective Vitals Vital Signs Date Time Temp Pulse Resp B/P (MAP) Pulse Ox O2 Delivery O2 Flow Rate FiO2 03/11/25 07:30 80 18 100 Room Air* 0 21 03/11/25 01:00 99.4 160/105 (123) 99.4 Intake/Output Intake and Output 03/11/25 07:00 Intake Total 1325 ml Output Total 3600 ml Balance -2275 ml Intake Oral 1275 ml IV Total 50 ml Output Urine Total 3600 ml Medications Current Medications Medications Dose Ordered Sig/Julia Route Start Time Stop Time Status Last Admin Dose Admin Acetaminophen/ Hydrocodone Bitart 1 tab Q4HP PRN PO 03/05/25 21:15 03/10/25 15:44 1 TAB Ondansetron HCl 4 mg Q4HP PRN IV 03/05/25 21:15 Docusate Sodium 100 mg BIDPRN PRN PO 03/05/25 21:15 03/10/25 20:22 100 MG Acetaminophen 650 mg Q6HP PRN PO 03/05/25 21:15 03/11/25 02:57 650 MG Sodium Chloride 1,000 ml @ 75 mls/hr [id number] IV 03/05/25 21:15 03/09/25 15:50 75 MLS/HR Nitroglycerin 0.4 mg Q5MINP PRN SL 03/05/25 22:45 Morphine Sulfate 2 mg Q30M PRN IV 03/05/25 22:45 Cancel Ceftriaxone Sodium 50 ml @ 100 mls/hr DAILY@09 IV 03/07/25 09:00 03/11/25 09:18 100 MLS/HR Tamsulosin HCl 0.4 mg QPM PO 03/07/25 18:00 03/10/25 17:51 0.4 MG Morphine Sulfate 2 mg Q30M PRN IV 03/07/25 11:00 Pantoprazole Sodium 40 mg DAILY@0600 PO 03/08/25 06:00 03/11/25 06:28 40 MG Ketorolac Tromethamine 30 mg Q6HPRN PRN IV 03/09/25 08:30 03/14/25 08:29 03/11/25 06:54 30 MG Laboratory Results Laboratory Tests 03/10/25 06:05 Urinalysis Test 03/05/25 20:00 03/08/25 04:33 Urine Color Light-red (Yellow) Urine Clarity Ex.turbid (Clear) Urine pH 6.5 (5.0-9.0) Urine Specific [place] 1.011 (1.001-1.035) Urine Protein 2+ (Negative) H Urine Ketones Negative (Negative) Urine Blood 3+ /uL (Negative) H Urine Nitrite Negative (Negative) Urine Bilirubin Negative (Negative) Urine Urobilinogen Normal mg/dL (Negative) Urine Leukocyte Esterase 2+ /uL (Negative) Urine RBC 6312 /hpf (0 - 3) Urine Microscopic WBC 130 /HPF (0-3) H Urine Squamous Epithelial Cells None seen /hpf (<5) Urine Bacteria None seen /hpf (None Seen) Urine Glucose Normal mg/dL (Normal) Urine Creatinine 69.39 mg/dL (30.0-125.0) Urine Protein/Creatinine Ratio 3.98 Urine Sodium 98 mmol/L (40-220) Urine Total Protein 276.1 mg/dL (1-14) H Microbiology Microbiology Date/Time Source Procedure Growth Status 03/08/25 04:33 Voided Urine Urine Culture - Final Complete 03/06/25 15:50 Blood Blood Culture - Preliminary NO GROWTH AFTER 72 HOURS OF INCUBATION. Resulted Labs and/or images reviewed: Labs reviewed by me, Image(s) reviewed by me Assessment/Plan Assessment/Plan Acute symptomatic anemia hemoglobin 6.5, improved to 8.7 after 2 unit RBC transfusion Acute urinary retention : Bladder tumor/mass Status post transurethral resection of the bladder tumor by Dr Larson on 03-09-25 Embolization of the left vesical artery by radiologist ordered by Dr. Larson, as complete hemostasis could not be secured during the TURBT procedure, status post embolization by the Radiologist Dr Quarles Patient getting three-way continuous bladder irrigation Acute bilateral hydronephrosis History of prostate cancer status post radical prostatectomy 2017 Hematuria FERMIN on CKD: Consult by appreciated, kidney function worsening, wait for further evaluation by Nephrology Acute generalized weakness Pts daughter Vikas [phone] who lives in [place] is at the bedside LASHAWN Landis at bedside Plan discussed with: Patient Date of Service: Mar 11, 2025 Billing Provider: JULES MCKEON MD Common Visit Codes: [id number] INP/OBS CARE(HIGH) JULES MCKEON MD Mar 11, 2025 11:34
[2025-03-11] MEDS: HYDROmorphone HCL 2 MG/ML VL/or syr IV PRN (12:41)
[2025-03-11] MEDS: METHOCARBAMOL 500 MG TAB PO PRN (12:41)
[2025-03-11 13:41] LABS: Chloride 100 mmol/L (98-107); Potassium 4.3 mmol/L (3.5-5.1)
[2025-03-11 13:42] LABS: Anion Gap 12 (5-15)
[2025-03-11 13:43] LABS: Calcium 8.9 mg/dL (8.7-10.4); Carbon Dioxide 19 mmol/L (20-31); Sodium 131 mmol/L (136-145)
[2025-03-11 13:47] LABS: BUN/Creatinine Ratio 4.9 (10.0-20.0); Glucose 85 mg/dL (74-106)
[2025-03-11 13:48] LABS: Blood Urea Nitrogen 36 mg/dL (9-23)
[2025-03-11] MEDS: TOLTERODINE TARTRATE 1 MG TAB PO SCH (14:26)
--- NOTE | 2025-03-11 14:34 | DVHPN2 ---
Progress Note Date Seen: Mar 11, 2025 Medical Necessity Reason Pt with a Central, PICC or Fol: Yes The following are medically ne: Goodman Catheter Reason for goodman catheter: Bladder Retention/Obstruc Subjective Patient reports: Other (pain bladder area overnight reports night RN didnt empty goodman bag , on CBI) Review of Systems: HEENT:Normal, CVS:Normal, RESPIRATORY:Normal, GI:Normal, :Abnormal, MSK:Normal, NEURO:Normal Objective vital signs Vital Sign Date Time Temp Pulse Resp B/P (MAP) Pulse Ox O2 Delivery O2 Flow Rate FiO2 03/11/25 12:41 80 18 161/90 03/11/25 09:00 98.0 100 98.0 03/11/25 07:30 Room Air* 0 21 Total Intake and Output 03/10/25 03/10/25 03/11/25 15:00 23:00 07:00 Intake Total 50 ml 625 ml 650 ml Output Total 3600 ml Balance 50 ml 625 ml -2950 ml medications Current Medications Medications Dose Ordered Sig/Julia Route Start Time Stop Time Status Last Admin Dose Admin Acetaminophen/ Hydrocodone Bitart 1 tab Q4HP PRN PO 03/05/25 21:15 03/10/25 15:44 1 TAB Ondansetron HCl 4 mg Q4HP PRN IV 03/05/25 21:15 Docusate Sodium 100 mg BIDPRN PRN PO 03/05/25 21:15 03/10/25 20:22 100 MG Acetaminophen 650 mg Q6HP PRN PO 03/05/25 21:15 03/11/25 02:57 650 MG Nitroglycerin 0.4 mg Q5MINP PRN SL 03/05/25 22:45 Morphine Sulfate 2 mg Q30M PRN IV 03/05/25 22:45 Cancel Ceftriaxone Sodium 50 ml @ 100 mls/hr DAILY@09 IV 03/07/25 09:00 03/11/25 09:18 100 MLS/HR Tamsulosin HCl 0.4 mg QPM PO 03/07/25 18:00 03/10/25 17:51 0.4 MG Morphine Sulfate 2 mg Q30M PRN IV 03/07/25 11:00 Pantoprazole Sodium 40 mg DAILY@0600 PO 03/08/25 06:00 03/11/25 06:28 40 MG Ketorolac Tromethamine 30 mg Q6HPRN PRN IV 03/09/25 08:30 03/14/25 08:29 03/11/25 06:54 30 MG Methocarbamol 500 mg Q8HR PRN PO 03/11/25 11:45 03/11/25 12:41 500 MG Tolterodine Tartrate 2 mg BID PO 03/11/25 12:51 03/11/25 14:26 2 MG Oxycodone HCl 10 mg Q12HR PO 03/11/25 22:00 Hydromorphone HCl 2 mg Q4HPRN PRN IV 03/11/25 12:00 03/11/25 12:41 2 MG Zolpidem Tartrate 10 mg QPM PRN PO 03/11/25 20:00 Furosemide 40 mg BIDD IV 03/11/25 18:00 UNV Examination: GENERAL:Normal, HEENT:Normal, NECK:Normal, LUNGS:Normal, CVS:Normal, ABDOMEN:Normal, MSK:Normal, SKIN:Normal, NEURO:Normal, :Abnormal (hematuria +) laboratory and microbiology Laboratory Tests 03/11/25 13:00 03/10/25 06:05 Test 03/11/25 13:00 Range/Units Serum Glucose 85 74-106 mg/dL Microbiology Date/Time Source Procedure Growth Status 03/08/25 04:33 Voided Urine Urine Culture - Final Complete 03/06/25 15:50 Blood Blood Culture - Preliminary NO GROWTH AFTER 72 HOURS OF INCUBATION. Resulted Problem List/Assessment/Plan Problem List/Assessment/Plan Acute kidney injury superimposed Chronic Kidney Disease stage IIIB secondary obstructive etiology Urinary retention Hematuria status post Vesical artery immobilization History of prostate cancer Bladder mass s/p resectionn Hypertension Anemia due to blood loss Metabolic acidosis hyponatremia recs dc half NS renal function worse lasix iv bid renal US will monitor renal function closely ,, will consider dialysis if no improvement in 1-2 days on cbi Plan discussed with: Patient, Daughter My Orders My Orders Orders - LINNETTE MCLAUGHLIN MD Procedure Category Date Status Time Basic Metabolic Panel LAB 03/12/25 Verified 05:00 Basic Metabolic Panel LAB 03/13/25 Verified 05:00 Basic Metabolic Panel LAB 03/14/25 Verified 05:00 Basic Metabolic Panel LAB 03/15/25 Verified 05:00 Basic Metabolic Panel LAB 03/16/25 Verified 05:00 Basic Metabolic Panel LAB 03/17/25 Verified 05:00 Basic Metabolic Panel LAB 03/18/25 Verified 05:00 Furosemide Injection PHA 03/11/25 Logged (Lasix Injection) 18:00 Kidney US 03/11/25 Logged 14:16 Dietary Evaluation Review Comments: Continue current plan of care Expected Outcomes/Goals: To meet >75% estimated needs Fu 5-7 days Total Time (mins): 55 CC Plasma Assessment Blood Product Administration S: [id number] LINNETTE MCLAUGHLIN MD Mar 11, 2025 14:34
--- NOTE | 2025-03-11 15:35 | DVH ---
INDICATION: willard TECHNIQUE: Multiple real-time sonographic images of the kidneys and bladder were obtained. COMPARISON: None FINDINGS: The right kidney measures 10.8 cm in length, which is normal in size. There is normal echog enicity of the right kidney. No hydronephrosis. There is increased echogenicity of the right kidney. Trace perinephric fluid. The left kidney measures 11.8 cm in length, which is normal in size. There is normal echogenicity of the left kidney. No hydronephrosis. There is increased echogenicity of the left kidney suggestive of chronic medical renal disease. Urinary bladder is decompressed with Hein catheter. Partially visualized small bilateral pleural effusions. IMPRESSION: Echogenic bilateral kidneys suggestive of chronic medical renal disease. Mild bilateral hydronephrosi s.
--- NOTE | 2025-03-11 15:41 | DVHPN2 ---
Progress Note Date Seen: Mar 11, 2025 Resident Creating Document: GILBERTO MERLOS Medical Necessity Reason Pt with a Central, PICC or Fol: Yes The following are medically ne: Goodman Catheter Reason for goodman catheter: Bladder Retention/Obstruc Subjective Review of Systems Patient is seen today at bedside No nausea or vomiting Hemodynamically stable H&H stable Objective vital signs Vital Sign Date Time Temp Pulse Resp B/P (MAP) Pulse Ox O2 Delivery O2 Flow Rate FiO2 03/11/25 13:00 98.6 72 17 153/88 (109) 96 98.6 03/11/25 07:30 Room Air* 0 21 Total Intake and Output 03/10/25 03/10/25 03/11/25 15:00 23:00 07:00 Intake Total 50 ml 625 ml 650 ml Output Total 3600 ml Balance 50 ml 625 ml -2950 ml medications Current Medications Medications Dose Ordered Sig/Julia Route Start Time Stop Time Status Last Admin Dose Admin Acetaminophen/ Hydrocodone Bitart 1 tab Q4HP PRN PO 03/05/25 21:15 03/10/25 15:44 1 TAB Ondansetron HCl 4 mg Q4HP PRN IV 03/05/25 21:15 Docusate Sodium 100 mg BIDPRN PRN PO 03/05/25 21:15 03/10/25 20:22 100 MG Acetaminophen 650 mg Q6HP PRN PO 03/05/25 21:15 03/11/25 02:57 650 MG Nitroglycerin 0.4 mg Q5MINP PRN SL 03/05/25 22:45 Morphine Sulfate 2 mg Q30M PRN IV 03/05/25 22:45 Cancel Ceftriaxone Sodium 50 ml @ 100 mls/hr DAILY@09 IV 03/07/25 09:00 03/11/25 09:18 100 MLS/HR Tamsulosin HCl 0.4 mg QPM PO 03/07/25 18:00 03/10/25 17:51 0.4 MG Morphine Sulfate 2 mg Q30M PRN IV 03/07/25 11:00 Pantoprazole Sodium 40 mg DAILY@0600 PO 03/08/25 06:00 03/11/25 06:28 40 MG Ketorolac Tromethamine 30 mg Q6HPRN PRN IV 03/09/25 08:30 03/14/25 08:29 03/11/25 06:54 30 MG Methocarbamol 500 mg Q8HR PRN PO 03/11/25 11:45 03/11/25 12:41 500 MG Tolterodine Tartrate 2 mg BID PO 03/11/25 12:51 03/11/25 14:26 2 MG Oxycodone HCl 10 mg Q12HR PO 03/11/25 22:00 Hydromorphone HCl 2 mg Q4HPRN PRN IV 03/11/25 12:00 03/11/25 12:41 2 MG Zolpidem Tartrate 10 mg QPM PRN PO 03/11/25 20:00 Furosemide 40 mg BIDD IV 03/11/25 18:00 laboratory and microbiology Laboratory Tests 03/11/25 13:00 03/10/25 06:05 Test 03/11/25 13:00 Range/Units Serum Glucose 85 74-106 mg/dL Microbiology Date/Time Source Procedure Growth Status 03/08/25 04:33 Voided Urine Urine Culture - Final Complete 03/06/25 15:50 Blood Blood Culture - Preliminary NO GROWTH AFTER 72 HOURS OF INCUBATION. Resulted Problem List/Assessment/Plan Problem List/Assessment/Plan Assessment and plan Symptomatic anemia Acute hematuria Acute retention of urine FERMIN likely due to hematuria History of neoplasm of prostate, history of prostatectomy Pyelocaliectasis Events No nausea or vomiting Hemodynamically stable H&H stable Plan Networking Technician will sign off today Monitor intake output Continue bladder irrigation Pain management as per primary care Monitor intake output Continue IV antibiotic Continue tamsulosin Monitor CBC, BMP Plan discussed with Dr. Magali Mcintyre , nursing staff, Total time spent on patient evaluation, chart review, assessment and plan, discussion discussion >35 minutes Plan discussed with: Patient, Other (RN Plan discussed with: Patient, Other (RN) Dietary Evaluation Review Comments: Continue current plan of care Expected Outcomes/Goals: To meet >75% estimated needs Fu 5-7 days CC Plasma Assessment Blood Product Administration S: [id number] GILBERTO MERLOS RESIDENT Mar 11, 2025 15:41
[2025-03-11] MEDS: FUROSEMIDE 40 MG/4 ML VIAL IV SCH (17:11)
[2025-03-11] MEDS: ZOLPIDEM TARTRATE 5 MG TAB PO PRN (21:53)
[2025-03-12] VITALS (8 sets, daily range): BP systolic 128–172; BP diastolic 87–107; PULSE 72–122; RESP 17–20; TEMP 97.4–98.4; O2SAT 93–98
[2025-03-12] MEDS: hydrALAZINE HCL 20 MG/ML VL IV PRN (03:01)
[2025-03-12 06:36] LABS: Potassium 4.6 mmol/L (3.5-5.1)
[2025-03-12 06:37] LABS: Anion Gap 15 (5-15); Calcium 9.4 mg/dL (8.7-10.4)
[2025-03-12 06:43] LABS: BUN/Creatinine Ratio 5.1 (10.0-20.0); Glucose 84 mg/dL (74-106)
[2025-03-12 06:54] LABS: Blood Urea Nitrogen 44 mg/dL (9-23); Carbon Dioxide 16 mmol/L (20-31); Chloride 98 mmol/L (98-107); Sodium 129 mmol/L (136-145)
[2025-03-12] MEDS ORDERED: SODIUM CHLORIDE 0.9% 1,000 ML IV SCH (18:30)
[2025-03-12] MEDS: CHOLECALCIFEROL (VITD3) 1,000UNIT=25mCg TAB PO ONE (18:45)
--- NOTE | 2025-03-12 18:52 | DVHPN2 ---
Progress Note Date Seen: Mar 12, 2025 Medical Necessity Reason Pt with a Central, PICC or Fol: Yes The following are medically ne: Goodman Catheter Reason for goodman catheter: Bladder Retention/Obstruc Subjective Patient reports: Other Review of Systems: :Abnormal (pain) Objective vital signs Vital Sign Date Time Temp Pulse Resp B/P (MAP) Pulse Ox O2 Delivery O2 Flow Rate FiO2 03/12/25 17:34 145/91 03/12/25 17:00 105 20 03/12/25 16:39 97.4 95 97.4 03/12/25 07:30 Room Air* 0 21 Total Intake and Output 03/11/25 03/11/25 03/12/25 15:00 23:00 07:00 Intake Total 200 ml 475 ml 1150 ml Output Total 3300 ml 1200 ml Balance 200 ml -2825 ml -50 ml medications Current Medications Medications Dose Ordered Sig/Julia Route Start Time Stop Time Status Last Admin Dose Admin Acetaminophen/ Hydrocodone Bitart 1 tab Q4HP PRN PO 03/05/25 21:15 03/10/25 15:44 1 TAB Ondansetron HCl 4 mg Q4HP PRN IV 03/05/25 21:15 Docusate Sodium 100 mg BIDPRN PRN PO 03/05/25 21:15 03/12/25 17:38 100 MG Acetaminophen 650 mg Q6HP PRN PO 03/05/25 21:15 03/11/25 02:57 650 MG Nitroglycerin 0.4 mg Q5MINP PRN SL 03/05/25 22:45 Morphine Sulfate 2 mg Q30M PRN IV 03/05/25 22:45 Cancel Ceftriaxone Sodium 50 ml @ 100 mls/hr DAILY@09 IV 03/07/25 09:00 03/12/25 09:20 100 MLS/HR Tamsulosin HCl 0.4 mg QPM PO 03/07/25 18:00 03/12/25 17:34 0.4 MG Morphine Sulfate 2 mg Q30M PRN IV 03/07/25 11:00 Pantoprazole Sodium 40 mg DAILY@0600 PO 03/08/25 06:00 03/12/25 05:33 40 MG Ketorolac Tromethamine 30 mg Q6HPRN PRN IV 03/09/25 08:30 03/14/25 08:29 03/11/25 06:54 30 MG Methocarbamol 500 mg Q8HR PRN PO 03/11/25 11:45 03/12/25 13:04 500 MG Tolterodine Tartrate 2 mg BID PO 03/11/25 12:51 03/12/25 09:21 2 MG Oxycodone HCl 10 mg Q12HR PO 03/11/25 22:00 03/12/25 09:21 10 MG Hydromorphone HCl 2 mg Q4HPRN PRN IV 03/11/25 12:00 03/12/25 15:29 2 MG Zolpidem Tartrate 10 mg QPM PRN PO 03/11/25 20:00 03/11/25 21:53 10 MG Furosemide 40 mg BIDD IV 03/11/25 18:00 03/12/25 17:34 40 MG Hydralazine HCl 10 mg Q6HP PRN IV 03/12/25 03:00 03/12/25 03:01 10 MG Sodium Chloride 1,000 ml @ 100 mls/hr Q10H IV 03/12/25 18:30 UNV Examination: GENERAL:Normal, HEENT:Normal, NECK:Normal, LUNGS:Normal, CVS:Normal, ABDOMEN:Normal, MSK:Normal, SKIN:Normal, NEURO:Normal, :Abnormal laboratory and microbiology Laboratory Tests 03/12/25 06:01 03/10/25 06:05 Test 03/12/25 06:01 Range/Units Serum Glucose 84 74-106 mg/dL Microbiology Date/Time Source Procedure Growth Status 03/08/25 04:33 Voided Urine Urine Culture - Final Complete 03/06/25 15:50 Blood Blood Culture - Final NO GROWTH AFTER 5 DAYS OF INCUBATION. Complete Problem List/Assessment/Plan Problem List/Assessment/Plan Acute kidney injury superimposed Chronic Kidney Disease stage IIIB secondary obstructive etiology Urinary retention Hematuria status post Vesical artery immobilization History of prostate cancer Bladder mass s/p resectionn Hypertension Anemia due to blood loss Metabolic acidosis hyponatremia recs ns iv renal function worse renal US--mild hydro--urology on case will monitor renal function closely ,, will consider dialysis if no improvement in AM on cbi at low rate per rn check cbc called daughter but number not in service Plan discussed with: Patient My Orders My Orders Orders - LINNETTE MCLAUGHLIN MD Procedure Category Date Status Time Sodium Bicarb PHA 6/28/25 Logged 50meq/50ml Vial 18:30 Sodium Chloride 0.9% PHA 03/12/25 Logged 18:45 Urinalysis LAB 03/12/25 Logged 18:38 Urine Protein LAB 03/12/25 Logged 18:38 Urine Creatinine LAB 03/12/25 Logged 18:38 Urine Sodium LAB 03/12/25 Logged 18:38 Cholecalciferol PHA 03/12/25 Logged Tablet (Vitamin D3 18:45 Cholecalciferol PHA 03/13/25 Logged Tablet (Vitamin D3 10:00 Magnesium LAB 03/13/25 Verified 04:00 Phosphorus LAB 03/13/25 Verified 04:00 Protein LAB 03/13/25 Verified Electrophoresis Serum 04:00 [place] Lambda Lite LAB 03/13/25 Verified Chain Free S 04:00 Immunofixation Serum LAB 03/13/25 Verified 04:00 Dietary Evaluation Review Comments: Continue current plan of care Expected Outcomes/Goals: To meet >75% estimated needs Fu 5-7 days CC Plasma Assessment Blood Product Administration S: [id number] LINNETTE MCLAUGHLIN MD Mar 12, 2025 18:52
[2025-03-12] MEDS: SODIUM BICARB 8.4% 50Meq/50ml SYR Vial IV ONE (20:05)
[2025-03-12 20:49] LABS: Hematocrit 30.0 % (41.0-53.0); Hemoglobin 10.0 g/dL (13.5-17.5); Mean Corpuscular Hemoglobin 27.6 pg (28.0-32.0); Mean Corpuscular Volume 82.8 fL (80.0-100.0); Nucleated Red Blood Cells % 0.1 %
[2025-03-13] VITALS (8 sets, daily range): BP systolic 121–160; BP diastolic 85–97; PULSE 78–112; RESP 14–20; TEMP 97.5–98.1; O2SAT 91–99
[2025-03-13] MEDS: SODIUM CHLORIDE 0.9% 1,000 ML IV SCH (01:33)
[2025-03-13 06:43] LABS: Hematocrit 24.9 % (41.0-53.0); Hemoglobin 8.6 g/dL (13.5-17.5); Mean Corpuscular Hemoglobin 28.6 pg (28.0-32.0); Mean Corpuscular Volume 82.8 fL (80.0-100.0); Nucleated Red Blood Cells % 0.0 %
[2025-03-13 06:48] LABS: Albumin 3.8 g/dL (3.2-4.8); Anion Gap 15 (5-15); BUN/Creatinine Ratio 5.4 (10.0-20.0); Calcium 9.0 mg/dL (8.7-10.4); Chloride 98 mmol/L (98-107); Glucose 80 mg/dL (74-106); Magnesium 2.1 mg/dL (1.6-2.6); Potassium 4.7 mmol/L (3.5-5.1); Total Protein 6.5 g/dL (5.7-8.2)
[2025-03-13 06:49] LABS: Alanine Aminotransferase < 9 U/L (7-40); Alkaline Phosphatase 21 U/L (46-116); Bilirubin, Total 0.2 mg/dL (0.2-1.0); Blood Urea Nitrogen 52 mg/dL (9-23); Carbon Dioxide 19 mmol/L (20-31); Sodium 132 mmol/L (136-145)
--- NOTE | 2025-03-13 11:42 | DVHPN2 ---
Reviewed: Care Plan, H&P, Labs, Medications, Previous Orders, Radiology Changes from previous H/P or p: No Changes Eyes: No Pain, No Vision change, No Conjunctivae inflammation, No Eyelid inflammation, No Other, No Redness ENT: No Ear pain, No Ear discharge, No Nose pain, No Nose discharge, No Nose congestion, No Mouth pain, No Mouth swelling, No Throat pain, No Throat swelling, No Other Cardiovascular: No Chest Pain, No Palpitations, No Orthopnea, No Paroxysmal Noc. Dyspnea, No Edema, No Lt Headedness, No Other Respiratory: No Cough, No Dry, No Shortness of breath, No SOB with excertion, No Wheezing, No Hemoptysis, No Pleuritic Pain, No Sputum, No Other Gastrointestinal: No Nausea, No Vomiting, No Abdominal Pain, No Diarrhea, No Constipation, No Melena, No Hematochezia, No Other Genitourinary: No Dysuria, No Frequency, No Incontinence; Hematuria, Retention; No Other Musculoskeletal: No other, No neck pain, No shoulder pain, No arm pain, No back pain, No hand pain, No leg pain, No foot pain Skin: No Rash, No Lesions, No Jaundice, No Bruising, No Other Objective Vitals Vital Signs Date Time Temp Pulse Resp B/P (MAP) Pulse Ox O2 Delivery O2 Flow Rate FiO2 03/13/25 09:00 89 03/13/25 09:00 98.0 20 152/95 (114) 95 98.0 03/13/25 07:30 Room Air* 0 21 Intake/Output Intake and Output 03/13/25 07:00 Intake Total 3051.6 ml Output Total 3200 ml Balance -148.4 ml Intake Oral 1350 ml IV Total 1701.6 ml Output Urine Total 3200 ml Medications Current Medications Medications Dose Ordered Sig/Julia Route Start Time Stop Time Status Last Admin Dose Admin Acetaminophen/ Hydrocodone Bitart 1 tab Q4HP PRN PO 03/05/25 21:15 03/10/25 15:44 1 TAB Ondansetron HCl 4 mg Q4HP PRN IV 03/05/25 21:15 Docusate Sodium 100 mg BIDPRN PRN PO 03/05/25 21:15 03/12/25 17:38 100 MG Acetaminophen 650 mg Q6HP PRN PO 03/05/25 21:15 03/11/25 02:57 650 MG Nitroglycerin 0.4 mg Q5MINP PRN SL 03/05/25 22:45 Morphine Sulfate 2 mg Q30M PRN IV 03/05/25 22:45 Cancel Ceftriaxone Sodium 50 ml @ 100 mls/hr DAILY@09 IV 03/07/25 09:00 03/13/25 08:28 100 MLS/HR Tamsulosin HCl 0.4 mg QPM PO 03/07/25 18:00 03/12/25 17:34 0.4 MG Morphine Sulfate 2 mg Q30M PRN IV 03/07/25 11:00 Pantoprazole Sodium 40 mg DAILY@0600 PO 03/08/25 06:00 03/13/25 05:31 40 MG Methocarbamol 500 mg Q8HR PRN PO 03/11/25 11:45 03/13/25 08:27 500 MG Tolterodine Tartrate 2 mg BID PO 03/11/25 12:51 03/13/25 09:29 2 MG Oxycodone HCl 10 mg Q12HR PO 03/11/25 22:00 03/13/25 09:30 10 MG Hydromorphone HCl 2 mg Q4HPRN PRN IV 03/11/25 12:00 03/12/25 23:22 2 MG Zolpidem Tartrate 10 mg QPM PRN PO 03/11/25 20:00 03/11/25 21:53 10 MG Hydralazine HCl 10 mg Q6HP PRN IV 03/12/25 03:00 03/12/25 03:01 10 MG Sodium Chloride 1,000 ml @ 125 mls/hr Q8H IV 03/12/25 18:45 03/13/25 01:33 125 MLS/HR Cholecalciferol 4,000 unit DAILY PO 03/13/25 10:00 Sevelamer HCl 1,200 mg TIDWM PO 03/13/25 12:00 Future Hold Laboratory Results Laboratory Tests 03/13/25 04:42 Chemistry Test 03/13/25 04:42 Albumin Pending Albumin/Globulin Ratio Pending Calcium Level 9.0 mg/dL (8.7-10.4) Magnesium Level 2.1 mg/dL (1.6-2.6) Phosphorus Level 9.0 mg/dL (2.4-5.1) H Total Protein Pending LFT Test 03/13/25 04:42 Alanine Aminotransferase (ALT) < 9 U/L (7-40) Alkaline Phosphatase 21 U/L (46-116) L Aspartate Amino Transferase (AST) 11 U/L (<34) Total Bilirubin 0.2 mg/dL (0.2-1.0) Urinalysis Test 03/05/25 20:00 03/08/25 04:33 Urine Color Light-red (Yellow) Urine Clarity Ex.turbid (Clear) Urine pH 6.5 (5.0-9.0) Urine Specific [place] 1.011 (1.001-1.035) Urine Protein 2+ (Negative) H Urine Ketones Negative (Negative) Urine Blood 3+ /uL (Negative) H Urine Nitrite Negative (Negative) Urine Bilirubin Negative (Negative) Urine Urobilinogen Normal mg/dL (Negative) Urine Leukocyte Esterase 2+ /uL (Negative) Urine RBC 6312 /hpf (0 - 3) Urine Microscopic WBC 130 /HPF (0-3) H Urine Squamous Epithelial Cells None seen /hpf (<5) Urine Bacteria None seen /hpf (None Seen) Urine Glucose Normal mg/dL (Normal) Urine Creatinine 69.39 mg/dL (30.0-125.0) Urine Protein/Creatinine Ratio 3.98 Urine Sodium 98 mmol/L (40-220) Urine Total Protein 276.1 mg/dL (1-14) H Microbiology Microbiology Date/Time Source Procedure Growth Status 03/08/25 04:33 Voided Urine Urine Culture - Final Complete 03/06/25 15:50 Blood Blood Culture - Final NO GROWTH AFTER 5 DAYS OF INCUBATION. Complete Labs and/or images reviewed: Labs reviewed by me, Image(s) reviewed by me Assessment/Plan Assessment/Plan Acute symptomatic anemia hemoglobin 6.5, improved to 8.7 after 2 unit RBC transfusion Acute urinary retention : Bladder tumor/mass Status post transurethral resection of the bladder tumor by Dr Larson on 03-09-25 Embolization of the left vesical artery by radiologist ordered by Dr. Larson, as complete hemostasis could not be secured during the TURBT procedure, status post embolization by the Radiologist Dr Quarles Patient getting three-way continuous bladder irrigation Acute bilateral hydronephrosis History of prostate cancer status post radical prostatectomy 2016 Hematuria Worsening kidney function possible dialysis per nephrology Acute generalized weakness Pts daughter Vikas [phone] who lives in [place] is at the bedside RN Sabiha at bedside Plan discussed with: Patient Date of Service: Mar 13, 2025 Billing Provider: JULES MCKEON MD Common Visit Codes: [id number] INP/OBS CARE(HIGH) JULES MCKEON MD Mar 13, 2025 11:42
[2025-03-13] MEDS ORDERED: SEVELAMER 800 MG TAB PO SCH (12:00)
[2025-03-13] MEDS: CHOLECALCIFEROL (VITD3) 1,000UNIT=25mCg TAB PO SCH (12:47)
--- NOTE | 2025-03-13 16:23 | DVHPN2 ---
Progress Note Date Seen: Mar 13, 2025 Medical Necessity Reason Pt with a Central, PICC or Fol: Yes The following are medically ne: Goodman Catheter Reason for goodman catheter: Bladder Retention/Obstruc Subjective Patient reports: No new complaints (denies uremic symptoms ) Review of Systems: Deferred Objective vital signs Vital Sign Date Time Temp Pulse Resp B/P (MAP) Pulse Ox O2 Delivery O2 Flow Rate FiO2 03/13/25 13:00 97.5 104 14 148/93 (111) 97 97.5 03/13/25 07:30 Room Air* 0 21 Total Intake and Output 03/12/25 03/12/25 03/13/25 15:00 23:00 07:00 Intake Total 50 ml 1000 ml 2001.6 ml Output Total 2400 ml 800 ml Balance 50 ml -1400 ml 1201.6 ml medications Current Medications Medications Dose Ordered Sig/Julia Route Start Time Stop Time Status Last Admin Dose Admin Acetaminophen/ Hydrocodone Bitart 1 tab Q4HP PRN PO 03/05/25 21:15 03/10/25 15:44 1 TAB Ondansetron HCl 4 mg Q4HP PRN IV 03/05/25 21:15 Docusate Sodium 100 mg BIDPRN PRN PO 03/05/25 21:15 03/12/25 17:38 100 MG Acetaminophen 650 mg Q6HP PRN PO 03/05/25 21:15 03/11/25 02:57 650 MG Nitroglycerin 0.4 mg Q5MINP PRN SL 03/05/25 22:45 Morphine Sulfate 2 mg Q30M PRN IV 03/05/25 22:45 Cancel Ceftriaxone Sodium 50 ml @ 100 mls/hr DAILY@09 IV 03/07/25 09:00 03/13/25 08:28 100 MLS/HR Tamsulosin HCl 0.4 mg QPM PO 03/07/25 18:00 03/12/25 17:34 0.4 MG Morphine Sulfate 2 mg Q30M PRN IV 03/07/25 11:00 Pantoprazole Sodium 40 mg DAILY@0600 PO 03/08/25 06:00 03/13/25 05:31 40 MG Methocarbamol 500 mg Q8HR PRN PO 03/11/25 11:45 03/13/25 08:27 500 MG Tolterodine Tartrate 2 mg BID PO 03/11/25 12:51 03/13/25 09:29 2 MG Oxycodone HCl 10 mg Q12HR PO 03/11/25 22:00 03/13/25 09:30 10 MG Hydromorphone HCl 2 mg Q4HPRN PRN IV 03/11/25 12:00 03/12/25 23:22 2 MG Zolpidem Tartrate 10 mg QPM PRN PO 03/11/25 20:00 03/11/25 21:53 10 MG Hydralazine HCl 10 mg Q6HP PRN IV 03/12/25 03:00 03/12/25 03:01 10 MG Sodium Chloride 1,000 ml @ 125 mls/hr Q8H IV 03/12/25 18:45 03/13/25 01:33 125 MLS/HR Cholecalciferol 4,000 unit DAILY PO 03/13/25 10:00 03/13/25 12:47 4,000 UNIT Sevelamer HCl 1,200 mg TIDWM PO 03/13/25 12:00 Hold Examination: GENERAL:Normal, HEENT:Normal, NECK:Normal, LUNGS:Normal, CVS:Normal, ABDOMEN:Normal, MSK:Normal, SKIN:Normal, NEURO:Normal, :Normal laboratory and microbiology Laboratory Tests 03/13/25 04:42 Test 03/13/25 04:42 Range/Units Serum Glucose 80 74-106 mg/dL Microbiology Date/Time Source Procedure Growth Status 03/08/25 04:33 Voided Urine Urine Culture - Final Complete 03/06/25 15:50 Blood Blood Culture - Final NO GROWTH AFTER 5 DAYS OF INCUBATION. Complete Problem List/Assessment/Plan Problem List/Assessment/Plan Acute kidney injury superimposed Chronic Kidney Disease stage IIIB secondary obstructive etiology Urinary retention Hematuria status post Vesical artery immobilization History of prostate cancer Bladder mass s/p resectionn Hypertension Anemia due to blood loss Metabolic acidosis hyponatremia recs ns iv continue renal function worse--recommended dialysis patient refused HD today renal US--mild hydro--urology on case on cbi at very low rate per rn d/w pt,family,rn bedside Plan discussed with: Patient, Spouse My Orders My Orders Orders - LINNETTE MCLAUGHLIN MD Procedure Category Date Status Time Sodium Chloride 0.9% PHA 03/12/25 In Process 18:45 Urinalysis LAB 03/12/25 Logged 18:38 Urine Protein LAB 03/12/25 Logged 18:38 Urine Creatinine LAB 03/12/25 Logged 18:38 Urine Sodium LAB 03/12/25 Logged 18:38 Cholecalciferol PHA 03/13/25 In Process Tablet (Vitamin D3 10:00 Protein LAB 03/13/25 In Process Electrophoresis Serum 04:00 [place] Lambda Lite LAB 03/13/25 In Process Chain Free S 04:00 Immunofixation Serum LAB 03/13/25 In Process 04:00 Sevelamer (Renagel) PHA 03/13/25 In Process 12:00 Pharmacy [facility] 03/13/25 In Process Clarification: 10:05 Dietary Evaluation Review Comments: Continue current plan of care Expected Outcomes/Goals: To meet >75% estimated needs Fu 5-7 days CC Plasma Assessment Blood Product Administration S: [id number] LINNETTE MCLAUGHLIN MD Mar 13, 2025 16:23
[2025-03-14] VITALS (8 sets, daily range): BP systolic 137–152; BP diastolic 84–95; PULSE 93–109; RESP 16–20; TEMP 97.7–98.1; O2SAT 96–99
[2025-03-14 06:05] LABS: Nucleated Red Blood Cells % 0.0 %
[2025-03-14 06:07] LABS: Hematocrit 24.4 % (41.0-53.0); Hemoglobin 8.1 g/dL (13.5-17.5); Mean Corpuscular Hemoglobin 27.5 pg (28.0-32.0); Mean Corpuscular Volume 83.2 fL (80.0-100.0)
[2025-03-14 06:21] LABS: Albumin 3.4 g/dL (3.2-4.8); Anion Gap 15 (5-15); BUN/Creatinine Ratio 5.7 (10.0-20.0); Chloride 104 mmol/L (98-107); Glucose 77 mg/dL (74-106); Potassium 4.6 mmol/L (3.5-5.1); Total Protein 5.8 g/dL (5.7-8.2)
[2025-03-14 06:39] LABS: Alanine Aminotransferase < 9 U/L (7-40); Alkaline Phosphatase 18 U/L (46-116); Bilirubin, Total 0.2 mg/dL (0.2-1.0); Blood Urea Nitrogen 57 mg/dL (9-23); Calcium 8.0 mg/dL (8.7-10.4); Carbon Dioxide 16 mmol/L (20-31); Sodium 135 mmol/L (136-145)
--- NOTE | 2025-03-14 12:45 | DVHPN2 ---
Reviewed: Care Plan, H&P, Labs, Medications, Previous Orders, Radiology Changes from previous H/P or p: No Changes Eyes: No Pain, No Vision change, No Conjunctivae inflammation, No Eyelid inflammation, No Other, No Redness ENT: No Ear pain, No Ear discharge, No Nose pain, No Nose discharge, No Nose congestion, No Mouth pain, No Mouth swelling, No Throat pain, No Throat swelling, No Other Cardiovascular: No Chest Pain, No Palpitations, No Orthopnea, No Paroxysmal Noc. Dyspnea, No Edema, No Lt Headedness, No Other Respiratory: No Cough, No Dry, No Shortness of breath, No SOB with excertion, No Wheezing, No Hemoptysis, No Pleuritic Pain, No Sputum, No Other Gastrointestinal: No Nausea, No Vomiting, No Abdominal Pain, No Diarrhea, No Constipation, No Melena, No Hematochezia, No Other Genitourinary: No Dysuria, No Frequency, No Incontinence; Hematuria, Retention; No Other Musculoskeletal: No other, No neck pain, No shoulder pain, No arm pain, No back pain, No hand pain, No leg pain, No foot pain Skin: No Rash, No Lesions, No Jaundice, No Bruising, No Other Objective Vitals Vital Signs Date Time Temp Pulse Resp B/P (MAP) Pulse Ox O2 Delivery O2 Flow Rate FiO2 03/14/25 09:00 98.0 97 20 145/95 (112) 98 98.0 03/14/25 07:30 Room Air* 0 21 Intake/Output Intake and Output 03/14/25 07:00 Intake Total 2869.5 ml Output Total 900 ml Balance 1969.5 ml Intake Oral 1110 ml IV Total 1759.5 ml Output Urine Total 900 ml Medications Current Medications Medications Dose Ordered Sig/Julia Route Start Time Stop Time Status Last Admin Dose Admin Acetaminophen/ Hydrocodone Bitart 1 tab Q4HP PRN PO 03/05/25 21:15 03/14/25 01:03 1 TAB Ondansetron HCl 4 mg Q4HP PRN IV 03/05/25 21:15 Docusate Sodium 100 mg BIDPRN PRN PO 03/05/25 21:15 03/14/25 10:06 100 MG Acetaminophen 650 mg Q6HP PRN PO 03/05/25 21:15 03/11/25 02:57 650 MG Nitroglycerin 0.4 mg Q5MINP PRN SL 03/05/25 22:45 Morphine Sulfate 2 mg Q30M PRN IV 03/05/25 22:45 Cancel Ceftriaxone Sodium 50 ml @ 100 mls/hr DAILY@09 IV 03/07/25 09:00 03/14/25 10:05 100 MLS/HR Tamsulosin HCl 0.4 mg QPM PO 03/07/25 18:00 03/13/25 17:27 0.4 MG Morphine Sulfate 2 mg Q30M PRN IV 03/07/25 11:00 Pantoprazole Sodium 40 mg DAILY@0600 PO 03/08/25 06:00 03/14/25 05:42 40 MG Methocarbamol 500 mg Q8HR PRN PO 03/11/25 11:45 03/14/25 10:13 500 MG Tolterodine Tartrate 2 mg BID PO 03/11/25 12:51 03/14/25 10:06 2 MG Oxycodone HCl 10 mg Q12HR PO 03/11/25 22:00 03/14/25 10:06 10 MG Hydromorphone HCl 2 mg Q4HPRN PRN IV 03/11/25 12:00 03/12/25 23:22 2 MG Zolpidem Tartrate 10 mg QPM PRN PO 03/11/25 20:00 03/13/25 18:34 10 MG Hydralazine HCl 10 mg Q6HP PRN IV 03/12/25 03:00 03/13/25 21:08 10 MG Sodium Chloride 1,000 ml @ 125 mls/hr Q8H IV 03/12/25 18:45 03/14/25 01:56 125 MLS/HR Cholecalciferol 4,000 unit DAILY PO 03/13/25 10:00 03/14/25 10:13 4,000 UNIT Sevelamer HCl 1,200 mg TIDWM PO 03/13/25 12:00 Hold Laboratory Results Laboratory Tests 03/14/25 05:17 Chemistry Test 03/14/25 05:17 Albumin 3.4 g/dL (3.2-4.8) Calcium Level 8.0 mg/dL (8.7-10.4) L Total Protein 5.8 g/dL (5.7-8.2) LFT Test 03/14/25 05:17 Alanine Aminotransferase (ALT) < 9 U/L (7-40) Alkaline Phosphatase 18 U/L (46-116) L Aspartate Amino Transferase (AST) 13 U/L (<34) Total Bilirubin 0.2 mg/dL (0.2-1.0) Urinalysis Test 03/05/25 20:00 03/08/25 04:33 Urine Color Light-red (Yellow) Urine Clarity Ex.turbid (Clear) Urine pH 6.5 (5.0-9.0) Urine Specific [place] 1.011 (1.001-1.035) Urine Protein 2+ (Negative) H Urine Ketones Negative (Negative) Urine Blood 3+ /uL (Negative) H Urine Nitrite Negative (Negative) Urine Bilirubin Negative (Negative) Urine Urobilinogen Normal mg/dL (Negative) Urine Leukocyte Esterase 2+ /uL (Negative) Urine RBC 6312 /hpf (0 - 3) Urine Microscopic WBC 130 /HPF (0-3) H Urine Squamous Epithelial Cells None seen /hpf (<5) Urine Bacteria None seen /hpf (None Seen) Urine Glucose Normal mg/dL (Normal) Urine Creatinine 69.39 mg/dL (30.0-125.0) Urine Protein/Creatinine Ratio 3.98 Urine Sodium 98 mmol/L (40-220) Urine Total Protein 276.1 mg/dL (1-14) H Microbiology Microbiology Date/Time Source Procedure Growth Status 03/08/25 04:33 Voided Urine Urine Culture - Final Complete 03/06/25 15:50 Blood Blood Culture - Final NO GROWTH AFTER 5 DAYS OF INCUBATION. Complete Labs and/or images reviewed: Labs reviewed by me, Image(s) reviewed by me Assessment/Plan Assessment/Plan Acute symptomatic anemia hemoglobin 6.5, improved to 8.7 after 2 unit RBC transfusion Acute urinary retention : Bladder tumor/mass Status post transurethral resection of the bladder tumor by Dr Larson on 03-09-25 Embolization of the left vesical artery by radiologist ordered by Dr. Larson, as complete hemostasis could not be secured during the TURBT procedure, status post embolization by the Radiologist Dr Quarles Patient getting three-way continuous bladder irrigation Acute bilateral hydronephrosis History of prostate cancer status post radical prostatectomy 2017 Hematuria Worsening kidney function possible dialysis per nephrology, BUN creatinine 10/5.7 patient has been refusing dialysis, discussed with him today with LASHAWN Landis and he is now willing for dialysis, Radiology consult placed for dialysis cath placement Acute generalized weakness Pts daughter Vikas [phone] who lives in [place] is at the bedside LASHAWN Landis at bedside Plan discussed with: Patient My Orders Orders - JULES MCKEON MD Procedure Category Date Status Time * Radiologist Consult CONS 03/14/25 Verified 12:41 Date of Service: Mar 14, 2025 Billing Provider: JULES MCKEON MD Common Visit Codes: [id number] INP/OBS CARE(HIGH) JULES MCKEON MD Mar 14, 2025 12:45
--- NOTE | 2025-03-14 12:50 | DVHPN2 ---
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 Hematuria has stabilized after vesical artery embolization. Now with progressive rise in creatinine from 1.8 to 10.04 over the past week. no uremic symptoms. Goodman remains in place. Renal US - medical renal disease mild dee hydro. vital signs Vital Sign Date Time Temp Pulse Resp B/P (MAP) Pulse Ox O2 Delivery O2 Flow Rate FiO2 03/14/25 09:00 98.0 97 20 145/95 (112) 98 98.0 03/14/25 07:30 Room Air* 0 21 Total Intake and Output 03/13/25 03/13/25 03/14/25 15:00 23:00 07:00 Intake Total 300 ml 560 ml 2009.5 ml Output Total 600 ml 300 ml Balance 300 ml -40 ml 1709.5 ml medications Current Medications Medications Dose Ordered Sig/Julia Route Start Time Stop Time Status Last Admin Dose Admin Acetaminophen/ Hydrocodone Bitart 1 tab Q4HP PRN PO 03/05/25 21:15 03/14/25 01:03 1 TAB Ondansetron HCl 4 mg Q4HP PRN IV 03/05/25 21:15 Docusate Sodium 100 mg BIDPRN PRN PO 03/05/25 21:15 03/14/25 10:06 100 MG Acetaminophen 650 mg Q6HP PRN PO 03/05/25 21:15 03/11/25 02:57 650 MG Nitroglycerin 0.4 mg Q5MINP PRN SL 03/05/25 22:45 Morphine Sulfate 2 mg Q30M PRN IV 03/05/25 22:45 Cancel Ceftriaxone Sodium 50 ml @ 100 mls/hr DAILY@09 IV 03/07/25 09:00 03/14/25 10:05 100 MLS/HR Tamsulosin HCl 0.4 mg QPM PO 03/07/25 18:00 03/13/25 17:27 0.4 MG Morphine Sulfate 2 mg Q30M PRN IV 03/07/25 11:00 Pantoprazole Sodium 40 mg DAILY@0600 PO 03/08/25 06:00 03/14/25 05:42 40 MG Methocarbamol 500 mg Q8HR PRN PO 03/11/25 11:45 03/14/25 10:13 500 MG Tolterodine Tartrate 2 mg BID PO 03/11/25 12:51 03/14/25 10:06 2 MG Oxycodone HCl 10 mg Q12HR PO 03/11/25 22:00 03/14/25 10:06 10 MG Hydromorphone HCl 2 mg Q4HPRN PRN IV 03/11/25 12:00 03/12/25 23:22 2 MG Zolpidem Tartrate 10 mg QPM PRN PO 03/11/25 20:00 03/13/25 18:34 10 MG Hydralazine HCl 10 mg Q6HP PRN IV 03/12/25 03:00 03/13/25 21:08 10 MG Sodium Chloride 1,000 ml @ 125 mls/hr Q8H IV 03/12/25 18:45 03/14/25 01:56 125 MLS/HR Cholecalciferol 4,000 unit DAILY PO 03/13/25 10:00 03/14/25 10:13 4,000 UNIT Sevelamer HCl 1,200 mg TIDWM PO 03/13/25 12:00 Hold objective currently refusing dialysis laboratory and microbiology Laboratory Tests 03/14/25 05:17 Test 03/14/25 05:17 Range/Units Serum Glucose 77 74-106 mg/dL Assessment/Plan s/p vesical artery embolization suspect contrast induced nephropathy keep goodman pt would benefit from definitive oncologic management (cystectomy or chemoradiation evaluation) on outpt basis Dietary Evaluation Review Comments: Continue current plan of care Expected Outcomes/Goals: To meet >75% estimated needs Fu 5-7 days Plan discussed with: Patient, Other Total Time (mins): 19 CC Plasma Assessment Blood Product Administration S: [id number] GABRIELE DOUGLAS NP Mar 14, 2025 12:50
--- NOTE | 2025-03-14 13:28 | DVHPN2 ---
Progress Note Date Seen: Mar 14, 2025 Medical Necessity Reason Pt with a Central, PICC or Fol: Yes The following are medically ne: Goodman Catheter Reason for goodman catheter: Bladder Retention/Obstruc Objective vital signs Vital Sign Date Time Temp Pulse Resp B/P (MAP) Pulse Ox O2 Delivery O2 Flow Rate FiO2 03/14/25 09:00 98.0 97 20 145/95 (112) 98 98.0 03/14/25 07:30 Room Air* 0 21 Total Intake and Output 03/13/25 03/13/25 03/14/25 15:00 23:00 07:00 Intake Total 300 ml 560 ml 2009.5 ml Output Total 600 ml 300 ml Balance 300 ml -40 ml 1709.5 ml medications Current Medications Medications Dose Ordered Sig/Julia Route Start Time Stop Time Status Last Admin Dose Admin Acetaminophen/ Hydrocodone Bitart 1 tab Q4HP PRN PO 03/05/25 21:15 03/14/25 01:03 1 TAB Ondansetron HCl 4 mg Q4HP PRN IV 03/05/25 21:15 Docusate Sodium 100 mg BIDPRN PRN PO 03/05/25 21:15 03/14/25 10:06 100 MG Acetaminophen 650 mg Q6HP PRN PO 03/05/25 21:15 03/11/25 02:57 650 MG Nitroglycerin 0.4 mg Q5MINP PRN SL 03/05/25 22:45 Morphine Sulfate 2 mg Q30M PRN IV 03/05/25 22:45 Cancel Ceftriaxone Sodium 50 ml @ 100 mls/hr DAILY@09 IV 03/07/25 09:00 03/14/25 10:05 100 MLS/HR Tamsulosin HCl 0.4 mg QPM PO 03/07/25 18:00 03/13/25 17:27 0.4 MG Morphine Sulfate 2 mg Q30M PRN IV 03/07/25 11:00 Pantoprazole Sodium 40 mg DAILY@0600 PO 03/08/25 06:00 03/14/25 05:42 40 MG Methocarbamol 500 mg Q8HR PRN PO 03/11/25 11:45 03/14/25 10:13 500 MG Tolterodine Tartrate 2 mg BID PO 03/11/25 12:51 03/14/25 10:06 2 MG Oxycodone HCl 10 mg Q12HR PO 03/11/25 22:00 03/14/25 10:06 10 MG Hydromorphone HCl 2 mg Q4HPRN PRN IV 03/11/25 12:00 03/12/25 23:22 2 MG Zolpidem Tartrate 10 mg QPM PRN PO 03/11/25 20:00 03/13/25 18:34 10 MG Hydralazine HCl 10 mg Q6HP PRN IV 03/12/25 03:00 03/13/25 21:08 10 MG Sodium Chloride 1,000 ml @ 125 mls/hr Q8H IV 03/12/25 18:45 03/14/25 01:56 125 MLS/HR Cholecalciferol 4,000 unit DAILY PO 03/13/25 10:00 03/14/25 10:13 4,000 UNIT Sevelamer HCl 1,200 mg TIDWM PO 03/13/25 12:00 Hold Examination: :Abnormal laboratory and microbiology Laboratory Tests 03/14/25 05:17 Test 03/14/25 05:17 Range/Units Serum Glucose 77 74-106 mg/dL Microbiology Date/Time Source Procedure Growth Status 03/08/25 04:33 Voided Urine Urine Culture - Final Complete 03/06/25 15:50 Blood Blood Culture - Final NO GROWTH AFTER 5 DAYS OF INCUBATION. Complete Problem List/Assessment/Plan Problem List/Assessment/Plan Acute kidney injury superimposed Chronic Kidney Disease stage IIIB secondary obstructive etiology Urinary retention Hematuria status post Vesical artery immobilization History of prostate cancer Bladder mass s/p resection Hypertension Anemia due to blood loss Metabolic acidosis hyponatremia ns iv continue renal function worse--recommended dialysis patient refused HD yesterday renal US--mild hydro--urology on case Plan discussed with: Patient My Orders My Orders Orders - JENNIFER VILLARREAL MD Procedure Category Date Status Time Communication Order ORDERS 03/14/25 Verified 13:25 Dietary Evaluation Review Comments: Continue current plan of care Expected Outcomes/Goals: To meet >75% estimated needs Fu 5-7 days Total Time (mins): 35 CC Plasma Assessment Blood Product Administration S: [id number] JENNIFER VILLARREAL MD Mar 14, 2025 13:27
[2025-03-14] MEDS: EPOETIN ALFA-EPBX 10,000 UNIT/1ML VIAL SC ONE (21:34)
[2025-03-15] VITALS (12 sets, daily range): BP systolic 139–166; BP diastolic 83–105; PULSE 81–111; RESP 12–20; TEMP 97.6–98.2; O2SAT 93–99
[2025-03-15 07:47] LABS: Hemoglobin 8.4 g/dL (13.5-17.5); Nucleated Red Blood Cells % 0.1 %
[2025-03-15 07:50] LABS: Hematocrit 24.4 % (41.0-53.0); Mean Corpuscular Hemoglobin 28.3 pg (28.0-32.0); Mean Corpuscular Volume 82.4 fL (80.0-100.0)
[2025-03-15 08:00] LABS: Albumin 3.7 g/dL (3.2-4.8); Anion Gap 15 (5-15); BUN/Creatinine Ratio 5.6 (10.0-20.0); Calcium 9.0 mg/dL (8.7-10.4); Chloride 105 mmol/L (98-107); Glucose 82 mg/dL (74-106); Potassium 4.8 mmol/L (3.5-5.1); Total Protein 6.2 g/dL (5.7-8.2)
[2025-03-15 08:03] LABS: Alanine Aminotransferase < 9 U/L (7-40); Alkaline Phosphatase 20 U/L (46-116); Blood Urea Nitrogen 58 mg/dL (9-23); Carbon Dioxide 16 mmol/L (20-31); Sodium 136 mmol/L (136-145)
[2025-03-15 08:04] LABS: Bilirubin, Total 0.2 mg/dL (0.2-1.0)
[2025-03-15 08:07] LABS: Immunoglobulin A 179 mg/dL (61-437); Immunoglobulin G, Serum 1013 mg/dL (603-1613); Immunoglobulin M 127 mg/dL (15-143); Kappa Lite Chain Free Serum 45.3 mg/L (3.3-19.4)
--- NOTE | 2025-03-15 09:50 | DVHPN2 ---
Reviewed: Care Plan, H&P, Labs, Medications, Previous Orders, Radiology Changes from previous H/P or p: No Changes Eyes: No Pain, No Vision change, No Conjunctivae inflammation, No Eyelid inflammation, No Other, No Redness ENT: No Ear pain, No Ear discharge, No Nose pain, No Nose discharge, No Nose congestion, No Mouth pain, No Mouth swelling, No Throat pain, No Throat swelling, No Other Cardiovascular: No Chest Pain, No Palpitations, No Orthopnea, No Paroxysmal Noc. Dyspnea, No Edema, No Lt Headedness, No Other Respiratory: No Cough, No Dry, No Shortness of breath, No SOB with excertion, No Wheezing, No Hemoptysis, No Pleuritic Pain, No Sputum, No Other Gastrointestinal: No Nausea, No Vomiting, No Abdominal Pain, No Diarrhea, No Constipation, No Melena, No Hematochezia, No Other Genitourinary: No Dysuria, No Frequency, No Incontinence; Hematuria, Retention; No Other Musculoskeletal: No other, No neck pain, No shoulder pain, No arm pain, No back pain, No hand pain, No leg pain, No foot pain Skin: No Rash, No Lesions, No Jaundice, No Bruising, No Other Objective Vitals Vital Signs Date Time Temp Pulse Resp B/P (MAP) Pulse Ox O2 Delivery O2 Flow Rate FiO2 03/15/25 05:00 97.7 96 16 141/85 (103) 93 97.7 03/14/25 20:00 Room Air* 0 21 Intake/Output Intake and Output 03/15/25 07:00 Intake Total 1535 ml Output Total 775 ml Balance 760 ml Intake Oral 660 ml IV Total 875 ml Output Urine Total 775 ml Medications Current Medications Medications Dose Ordered Sig/Julia Route Start Time Stop Time Status Last Admin Dose Admin Ondansetron HCl 4 mg Q4HP PRN IV 03/05/25 21:15 Docusate Sodium 100 mg BIDPRN PRN PO 03/05/25 21:15 03/14/25 10:06 100 MG Acetaminophen 650 mg Q6HP PRN PO 03/05/25 21:15 03/11/25 02:57 650 MG Nitroglycerin 0.4 mg Q5MINP PRN SL 03/05/25 22:45 Morphine Sulfate 2 mg Q30M PRN IV 03/05/25 22:45 Cancel Ceftriaxone Sodium 50 ml @ 100 mls/hr DAILY@09 IV 03/07/25 09:00 03/15/25 09:27 100 MLS/HR Tamsulosin HCl 0.4 mg QPM PO 03/07/25 18:00 03/14/25 17:04 0.4 MG Morphine Sulfate 2 mg Q30M PRN IV 03/07/25 11:00 Pantoprazole Sodium 40 mg DAILY@0600 PO 03/08/25 06:00 03/15/25 05:55 40 MG Methocarbamol 500 mg Q8HR PRN PO 03/11/25 11:45 03/15/25 02:45 500 MG Tolterodine Tartrate 2 mg BID PO 03/11/25 12:51 03/15/25 09:27 2 MG Oxycodone HCl 10 mg Q12HR PO 03/11/25 22:00 03/15/25 09:27 10 MG Hydromorphone HCl 2 mg Q4HPRN PRN IV 03/11/25 12:00 03/12/25 23:22 2 MG Zolpidem Tartrate 10 mg QPM PRN PO 03/11/25 20:00 03/13/25 18:34 10 MG Hydralazine HCl 10 mg Q6HP PRN IV 03/12/25 03:00 03/13/25 21:08 10 MG Sodium Chloride 1,000 ml @ 125 mls/hr Q8H IV 03/12/25 18:45 03/15/25 02:46 125 MLS/HR Cholecalciferol 4,000 unit DAILY PO 03/13/25 10:00 03/15/25 09:26 4,000 UNIT Sevelamer HCl 1,200 mg TIDWM PO 03/13/25 12:00 Hold Laboratory Results Laboratory Tests 03/15/25 07:24 Chemistry Test 03/15/25 07:24 Albumin 3.7 g/dL (3.2-4.8) Calcium Level 9.0 mg/dL (8.7-10.4) Total Protein 6.2 g/dL (5.7-8.2) LFT Test 03/15/25 07:24 Alanine Aminotransferase (ALT) < 9 U/L (7-40) Alkaline Phosphatase 20 U/L (46-116) L Aspartate Amino Transferase (AST) 14 U/L (13-40) Total Bilirubin 0.2 mg/dL (0.2-1.0) Urinalysis Test 03/05/25 20:00 03/08/25 04:33 Urine Color Light-red (Yellow) Urine Clarity Ex.turbid (Clear) Urine pH 6.5 (5.0-9.0) Urine Specific [place] 1.011 (1.001-1.035) Urine Protein 2+ (Negative) H Urine Ketones Negative (Negative) Urine Blood 3+ /uL (Negative) H Urine Nitrite Negative (Negative) Urine Bilirubin Negative (Negative) Urine Urobilinogen Normal mg/dL (Negative) Urine Leukocyte Esterase 2+ /uL (Negative) Urine RBC 6312 /hpf (0 - 3) Urine Microscopic WBC 130 /HPF (0-3) H Urine Squamous Epithelial Cells None seen /hpf (<5) Urine Bacteria None seen /hpf (None Seen) Urine Glucose Normal mg/dL (Normal) Urine Creatinine 69.39 mg/dL (30.0-125.0) Urine Protein/Creatinine Ratio 3.98 Urine Sodium 98 mmol/L (40-220) Urine Total Protein 276.1 mg/dL (1-14) H Microbiology Microbiology Date/Time Source Procedure Growth Status 03/08/25 04:33 Voided Urine Urine Culture - Final Complete 03/06/25 15:50 Blood Blood Culture - Final NO GROWTH AFTER 5 DAYS OF INCUBATION. Complete Labs and/or images reviewed: Labs reviewed by me, Image(s) reviewed by me Assessment/Plan Assessment/Plan Acute symptomatic anemia hemoglobin 6.5, improved to 8.7 after 2 unit RBC transfusion Acute urinary retention : Bladder tumor/mass Status post transurethral resection of the bladder tumor by Dr Larson on 03-09-25 Embolization of the left vesical artery by radiologist ordered by Dr. Larson, as complete hemostasis could not be secured during the TURBT procedure, status post embolization by the Radiologist Dr Quarles Patient getting three-way continuous bladder irrigation Acute bilateral hydronephrosis History of prostate cancer status post radical prostatectomy 2017 Hematuria Suspect contrast induced nephropathy, urology advised definitive oncologic management i.e. cystectomy or chemo radiation evaluation and as outpatient Worsening kidney function possible dialysis per nephrology, BUN creatinine 10/5.7 patient has been refusing dialysis, discussed with him today with LASHAWN Landis and he is now willing for dialysis, Radiology consult placed for dialysis cath placement Acute generalized weakness Pts daughter Vikas [phone] who lives in [place] is at the bedside LASHAWN Landis at bedside Time spent 65 minutes s Plan discussed with: Patient My Orders Orders - JULES MCKEON MD Procedure Category Date Status Time * Radiologist Consult CONS 03/14/25 Transmitted 12:41 Date of Service: Mar 15, 2025 Billing Provider: JULES MCKEON MD Common Visit Codes: [id number] CARE 30-74 MIN JULES MCKEON MD Mar 15, 2025 09:50
[2025-03-15] MEDS: HEPARIN SODIUM (PORCINE) 5000 UNITS/ML 1ML VIAL ONE (10:31)
[2025-03-15] MEDS: MIDAZOLAM HCL 2MG/2ML 2ml VIAL (1mg/ml) ONE (10:32)
[2025-03-15] MEDS: LIDOCAINE 2%HCL (LOCAL ANESTH.) INJ 20ML MDV ONE (10:32)
[2025-03-15] MEDS: fentaNYL CITRATE 100 MCG/2 ML VL ONE (10:32)
[2025-03-15] MEDS: SODIUM CHL 0.9% 1000 ML BAG XX ONE ×2 (10:45→17:52)
--- NOTE | 2025-03-15 10:45 | DVHPN2 ---
Progress Note Date Seen: Mar 15, 2025 Medical Necessity Reason Pt with a Central, PICC or Fol: Yes The following are medically ne: Goodman Catheter Reason for goodman catheter: Bladder Retention/Obstruc Objective vital signs Vital Sign Date Time Temp Pulse Resp B/P (MAP) Pulse Ox O2 Delivery O2 Flow Rate FiO2 03/15/25 09:00 97.7 85 20 154/94 (114) 96 97.7 03/14/25 20:00 Room Air* 0 21 Total Intake and Output 03/14/25 03/14/25 03/15/25 15:00 23:00 07:00 Intake Total 575 ml 660 ml 300 ml Output Total 375 ml 400 ml Balance 575 ml 285 ml -100 ml medications Current Medications Medications Dose Ordered Sig/Julia Route Start Time Stop Time Status Last Admin Dose Admin Ondansetron HCl 4 mg Q4HP PRN IV 03/05/25 21:15 Docusate Sodium 100 mg BIDPRN PRN PO 03/05/25 21:15 03/14/25 10:06 100 MG Acetaminophen 650 mg Q6HP PRN PO 03/05/25 21:15 03/11/25 02:57 650 MG Nitroglycerin 0.4 mg Q5MINP PRN SL 03/05/25 22:45 Morphine Sulfate 2 mg Q30M PRN IV 03/05/25 22:45 Cancel Ceftriaxone Sodium 50 ml @ 100 mls/hr DAILY@09 IV 03/07/25 09:00 03/15/25 09:27 100 MLS/HR Tamsulosin HCl 0.4 mg QPM PO 03/07/25 18:00 03/14/25 17:04 0.4 MG Morphine Sulfate 2 mg Q30M PRN IV 03/07/25 11:00 Pantoprazole Sodium 40 mg DAILY@0600 PO 03/08/25 06:00 03/15/25 05:55 40 MG Methocarbamol 500 mg Q8HR PRN PO 03/11/25 11:45 03/15/25 02:45 500 MG Tolterodine Tartrate 2 mg BID PO 03/11/25 12:51 03/15/25 09:27 2 MG Oxycodone HCl 10 mg Q12HR PO 03/11/25 22:00 03/15/25 09:27 10 MG Hydromorphone HCl 2 mg Q4HPRN PRN IV 03/11/25 12:00 03/12/25 23:22 2 MG Zolpidem Tartrate 10 mg QPM PRN PO 03/11/25 20:00 03/13/25 18:34 10 MG Hydralazine HCl 10 mg Q6HP PRN IV 03/12/25 03:00 03/13/25 21:08 10 MG Sodium Chloride 1,000 ml @ 125 mls/hr Q8H IV 03/12/25 18:45 03/15/25 02:46 125 MLS/HR Cholecalciferol 4,000 unit DAILY PO 03/13/25 10:00 03/15/25 09:26 4,000 UNIT Sevelamer HCl 1,200 mg TIDWM PO 03/13/25 12:00 Hold Examination: GENERAL:Normal laboratory and microbiology Laboratory Tests 03/15/25 07:24 Test 03/15/25 07:24 Range/Units Serum Glucose 82 74-106 mg/dL Microbiology Date/Time Source Procedure Growth Status 03/08/25 04:33 Voided Urine Urine Culture - Final Complete 03/06/25 15:50 Blood Blood Culture - Final NO GROWTH AFTER 5 DAYS OF INCUBATION. Complete Problem List/Assessment/Plan Problem List/Assessment/Plan Acute kidney injury superimposed Chronic Kidney Disease stage IIIB secondary obstructive etiology Urinary retention Hematuria status post Vesical artery immobilization History of prostate cancer Bladder mass s/p resection Hypertension Anemia due to blood loss Metabolic acidosis hyponatremia dc IVF, HD catheter today and HD treatment today will obtain outpatient renal clinic chair to renal function worse--recommended dialysis patient refused HD yesterday renal US--mild hydro--urology on case Plan discussed with: Patient My Orders My Orders Orders - JENNIFER VILLARREAL MD Procedure Category Date Status Time Communication Order ORDERS 03/14/25 Transmitted 13:25 Hemodialysis Orders ORDERS 03/14/25 Transmitted 13:28 Dialysis Nursing HUSSEIN 03/14/25 In Process Message 13:28 Document Fluid Input HUSSEIN 03/14/25 In Process And Outpu 13:28 Sevelamer (Renagel) PHA 03/15/25 Logged 12:00 Phosphorus LAB 03/15/25 Transmitted 10:36 Iron Panel LAB 03/15/25 Transmitted 10:36 Ferritin LAB 03/15/25 Transmitted 10:36 Hemodialysis Orders ORDERS 03/15/25 Transmitted 10:36 Dialysis Nursing HUSSEIN 03/15/25 In Process Message 10:36 Heparin Sodium PHA 03/15/25 Logged (Porcine) 10:45 Heparin Sodium PHA 03/15/25 Logged (Porcine) 10:45 Heparin Sodium PHA 03/15/25 Logged (Porcine) 10:45 Sodium Chloride 0.9% PHA 03/15/25 Logged 10:45 Document Fluid Input [facility] 03/15/25 In Process And Outpu 10:36 Dietary Evaluation Review Comments: Continue current plan of care Expected Outcomes/Goals: To meet >75% estimated needs Fu 5-7 days CC Plasma Assessment Blood Product Administration S: [id number] JENNIFER VILLARREAL MD Mar 15, 2025 10:45
[2025-03-15 10:57] LABS: Total Iron Binding Capacity 285.0 ug/dL (250-425)
[2025-03-15 11:06] LABS: Iron 19.0 ug/dL (65-175)
[2025-03-15] MEDS: SEVELAMER 800 MG TAB PO SCH (12:00)
--- NOTE | 2025-03-15 12:16 | DVH ---
XY Insertion of Venous Cath, HISTORY: HD CATH PL PROCEDURE: Informed consent was obtained. The patient was placed supine on the interventional table. A limited localization ultrasound of the right neck base was obtained. The right neck base and upper chest were prepped with chlorhexidine which was allowed to dry and draped in the usual sterile fashio n. Time out was performed. IV sedation was administered. The skin and the soft tissues were infiltrat ed with 1% Lidocaine. With real-time ultrasound guidance, the internal jugular vein was accessed with a micropuncture kit, and an image documenting patency was recorded to PACS. A subcutaneous tunneled tract was created from the right upper chest to the venotomy site. A 14.5 [place] Path, 23 cm lo ng hemodialysis catheter was advanced through the tunneled tract. Fluoroscopy was used to advance a guidewire through the internal jugular vein into the inferior vena cava. Following serial dilatation, a 15 Armenian peel-away sheath was introduced, though which was adva nced the catheter into the right atrium. The catheter tip position was confirmed with fluoroscopy. Th ere was satisfactory flow in both lumens. The catheter lumens were flushed with saline and heparin wa s left indwelling in the catheter. A post-procedure image of the chest was obtained. The neck incisio n site was closed with pressure and dressed sterilely. The catheter was sutured at the skin surface a nd exit site also dressed sterilely. No immediate complication was identified. DAP 37 FLUOROSCOPY TIME: 0.7 minutes. SEDATION: Dr. Naga Quarles was personally responsible for the administration of moderate sedation during the procedure performed, including the use of an independent trained observer who had no other duties during the procedure. The drugs utilized were IV fentanyl and versed (see nursing log for details). The total time of supervision by the attending physician was approximately 30 minutes. FINDINGS: Widely patent right IJV. Post procedure image demonstrates smooth course of the hemodialysi s catheter with the tip in the right atrium. IMPRESSION: Placement of 14.5 Armenian [place] Path, 23 cm long hemodialysis catheter through right internal jugular vein. Plan: Please contact IR for removal when no longer needed.
[2025-03-16] VITALS (9 sets, daily range): BP systolic 142–152; BP diastolic 80–97; PULSE 90–113; RESP 17–19; TEMP 97.8–98.3; O2SAT 91–96
[2025-03-16 06:07] LABS: Albumin 2.5 g/dL (2.9-4.4); Alpha-1-Globulin 0.4 g/dL (0.0-0.4); Alpha-2-Globulin 1.0 g/dL (0.4-1.0); Gamma Globulin 1.0 g/dL (0.4-1.8)
[2025-03-16 06:38] LABS: Nucleated Red Blood Cells % 0.0 %
[2025-03-16 06:40] LABS: Hematocrit 23.8 % (41.0-53.0); Hemoglobin 7.9 g/dL (13.5-17.5); Mean Corpuscular Hemoglobin 27.7 pg (28.0-32.0); Mean Corpuscular Volume 82.8 fL (80.0-100.0)
[2025-03-16 06:54] LABS: Alanine Aminotransferase 11 U/L (7-40); Anion Gap 11 (5-15); BUN/Creatinine Ratio 5.2 (10.0-20.0); Carbon Dioxide 23 mmol/L (20-31); Chloride 103 mmol/L (98-107); Glucose 79 mg/dL (74-106); Potassium 4.3 mmol/L (3.5-5.1); Sodium 137 mmol/L (136-145); Total Protein 5.7 g/dL (5.7-8.2)
[2025-03-16 06:55] LABS: Albumin 3.3 g/dL (3.2-4.8)
[2025-03-16 07:04] LABS: Alkaline Phosphatase 20 U/L (46-116); Bilirubin, Total 0.2 mg/dL (0.2-1.0); Blood Urea Nitrogen 42 mg/dL (9-23); Calcium 8.3 mg/dL (8.7-10.4)
--- NOTE | 2025-03-16 10:43 | DVHPN2 ---
Reviewed: Care Plan, H&P, Labs, Medications, Previous Orders, Radiology Changes from previous H/P or p: No Changes Eyes: No Pain, No Vision change, No Conjunctivae inflammation, No Eyelid inflammation, No Other, No Redness ENT: No Ear pain, No Ear discharge, No Nose pain, No Nose discharge, No Nose congestion, No Mouth pain, No Mouth swelling, No Throat pain, No Throat swelling, No Other Cardiovascular: No Chest Pain, No Palpitations, No Orthopnea, No Paroxysmal Noc. Dyspnea, No Edema, No Lt Headedness, No Other Respiratory: No Cough, No Dry, No Shortness of breath, No SOB with excertion, No Wheezing, No Hemoptysis, No Pleuritic Pain, No Sputum, No Other Gastrointestinal: No Nausea, No Vomiting, No Abdominal Pain, No Diarrhea, No Constipation, No Melena, No Hematochezia, No Other Genitourinary: No Dysuria, No Frequency, No Incontinence; Hematuria, Retention; No Other Musculoskeletal: No other, No neck pain, No shoulder pain, No arm pain, No back pain, No hand pain, No leg pain, No foot pain Skin: No Rash, No Lesions, No Jaundice, No Bruising, No Other Objective Vitals Vital Signs Date Time Temp Pulse Resp B/P (MAP) Pulse Ox O2 Delivery O2 Flow Rate FiO2 03/16/25 08:00 Room Air* 0 21 03/16/25 05:00 98.1 109 19 151/88 (109) 92 98.1 Intake/Output Intake and Output 03/16/25 07:00 Intake Total 470 ml Output Total 700 ml Balance -230 ml Intake Oral 420 ml IV Total 50 ml Output Urine Total 700 ml Medications Current Medications Medications Dose Ordered Sig/Julia Route Start Time Stop Time Status Last Admin Dose Admin Ondansetron HCl 4 mg Q4HP PRN IV 03/05/25 21:15 Docusate Sodium 100 mg BIDPRN PRN PO 03/05/25 21:15 03/14/25 10:06 100 MG Acetaminophen 650 mg Q6HP PRN PO 03/05/25 21:15 03/11/25 02:57 650 MG Nitroglycerin 0.4 mg Q5MINP PRN SL 03/05/25 22:45 Morphine Sulfate 2 mg Q30M PRN IV 03/05/25 22:45 Cancel Ceftriaxone Sodium 50 ml @ 100 mls/hr DAILY@09 IV 03/07/25 09:00 03/16/25 09:24 100 MLS/HR Tamsulosin HCl 0.4 mg QPM PO 03/07/25 18:00 03/15/25 18:26 0.4 MG Morphine Sulfate 2 mg Q30M PRN IV 03/07/25 11:00 Pantoprazole Sodium 40 mg DAILY@0600 PO 03/08/25 06:00 03/16/25 05:52 40 MG Methocarbamol 500 mg Q8HR PRN PO 03/11/25 11:45 03/15/25 18:30 500 MG Tolterodine Tartrate 2 mg BID PO 03/11/25 12:51 03/16/25 09:25 2 MG Oxycodone HCl 10 mg Q12HR PO 03/11/25 22:00 03/16/25 09:25 10 MG Hydromorphone HCl 2 mg Q4HPRN PRN IV 03/11/25 12:00 03/12/25 23:22 2 MG Zolpidem Tartrate 10 mg QPM PRN PO 03/11/25 20:00 03/13/25 18:34 10 MG Hydralazine HCl 10 mg Q6HP PRN IV 03/12/25 03:00 03/13/25 21:08 10 MG Cholecalciferol 4,000 unit DAILY PO 03/13/25 10:00 03/16/25 09:26 4,000 UNIT Sevelamer HCl 1,600 mg TIDWM PO 03/15/25 12:00 03/16/25 09:26 1,600 MG Laboratory Results Laboratory Tests 03/16/25 05:34 Chemistry Test 03/16/25 05:34 Albumin 3.3 g/dL (3.2-4.8) Calcium Level 8.3 mg/dL (8.7-10.4) L Total Protein 5.7 g/dL (5.7-8.2) LFT Test 03/16/25 05:34 Alanine Aminotransferase (ALT) 11 U/L (7-40) Alkaline Phosphatase 20 U/L (46-116) L Aspartate Amino Transferase (AST) 19 U/L (13-40) Total Bilirubin 0.2 mg/dL (0.2-1.0) Urinalysis Test 03/05/25 20:00 03/08/25 04:33 Urine Color Light-red (Yellow) Urine Clarity Ex.turbid (Clear) Urine pH 6.5 (5.0-9.0) Urine Specific [place] 1.011 (1.001-1.035) Urine Protein 2+ (Negative) H Urine Ketones Negative (Negative) Urine Blood 3+ /uL (Negative) H Urine Nitrite Negative (Negative) Urine Bilirubin Negative (Negative) Urine Urobilinogen Normal mg/dL (Negative) Urine Leukocyte Esterase 2+ /uL (Negative) Urine RBC 6312 /hpf (0 - 3) Urine Microscopic WBC 130 /HPF (0-3) H Urine Squamous Epithelial Cells None seen /hpf (<5) Urine Bacteria None seen /hpf (None Seen) Urine Glucose Normal mg/dL (Normal) Urine Creatinine 69.39 mg/dL (30.0-125.0) Urine Protein/Creatinine Ratio 3.98 Urine Sodium 98 mmol/L (40-220) Urine Total Protein 276.1 mg/dL (1-14) H Microbiology Microbiology Date/Time Source Procedure Growth Status 03/08/25 04:33 Voided Urine Urine Culture - Final Complete 03/06/25 15:50 Blood Blood Culture - Final NO GROWTH AFTER 5 DAYS OF INCUBATION. Complete Labs and/or images reviewed: Labs reviewed by me, Image(s) reviewed by me Assessment/Plan Assessment/Plan Acute symptomatic anemia hemoglobin 6.5, improved to 8.7 after 2 unit RBC transfusion Acute urinary retention : Bladder tumor/mass Status post transurethral resection of the bladder tumor by Dr Larson on 03-09-25 Embolization of the left vesical artery by radiologist ordered by Dr. Larson, as complete hemostasis could not be secured during the TURBT procedure, status post embolization by the Radiologist Dr Quarles Patient getting three-way continuous bladder irrigation Acute bilateral hydronephrosis History of prostate cancer status post radical prostatectomy 2017 Hematuria Suspect contrast induced nephropathy, urology advised definitive oncologic management i.e. cystectomy or chemo radiation evaluation and as outpatient Acute kidney injury requiring dialysis, patient received dialysis yesterday and also today, we will set up outpatient chair time Acute generalized weakness Pts daughter Vikas [phone] who lives in [place] is at the bedside LASHAWN Landis at bedside Time spent 65 minutes s Plan discussed with: Patient My Orders Orders - JULES MCKEON MD Procedure Category Date Status Time Insertion Of Venous XY 03/15/25 Resulted Cath 11:25 * Sales Trader CONS 03/16/25 Verified Consult Date of Service: Mar 16, 2025 Billing Provider: JULES MCKEON MD Common Visit Codes: [id number] INP/OBS CARE(HIGH) JULES MCKEON MD Mar 16, 2025 10:43
[2025-03-16] MEDS: SODIUM CHL 0.9% 1000 ML BAG XX ONE (12:45)
--- NOTE | 2025-03-16 14:24 | DVHPN2 ---
Progress Note Date Seen: Mar 16, 2025 Medical Necessity Reason Pt with a Central, PICC or Fol: Yes The following are medically ne: Central Line, Goodman Catheter Reason for goodman catheter: Bladder Retention/Obstruc Objective vital signs Vital Sign Date Time Temp Pulse Resp B/P (MAP) Pulse Ox O2 Delivery O2 Flow Rate FiO2 03/16/25 13:00 97.8 96 18 149/97 (114) 96 97.8 03/16/25 08:00 Room Air* 0 21 Total Intake and Output 03/15/25 03/15/25 03/16/25 15:00 23:00 07:00 Intake Total 50 ml 220 ml 200 ml Output Total 350 ml 350 ml Balance 50 ml -130 ml -150 ml medications Current Medications Medications Dose Ordered Sig/Julia Route Start Time Stop Time Status Last Admin Dose Admin Ondansetron HCl 4 mg Q4HP PRN IV 03/05/25 21:15 Docusate Sodium 100 mg BIDPRN PRN PO 03/05/25 21:15 03/14/25 10:06 100 MG Acetaminophen 650 mg Q6HP PRN PO 03/05/25 21:15 03/11/25 02:57 650 MG Nitroglycerin 0.4 mg Q5MINP PRN SL 03/05/25 22:45 Morphine Sulfate 2 mg Q30M PRN IV 03/05/25 22:45 Cancel Ceftriaxone Sodium 50 ml @ 100 mls/hr DAILY@09 IV 03/07/25 09:00 03/16/25 09:24 100 MLS/HR Tamsulosin HCl 0.4 mg QPM PO 03/07/25 18:00 03/15/25 18:26 0.4 MG Pantoprazole Sodium 40 mg DAILY@0600 PO 03/08/25 06:00 03/16/25 05:52 40 MG Methocarbamol 500 mg Q8HR PRN PO 03/11/25 11:45 03/15/25 18:30 500 MG Tolterodine Tartrate 2 mg BID PO 03/11/25 12:51 03/16/25 09:25 2 MG Oxycodone HCl 10 mg Q12HR PO 03/11/25 22:00 03/16/25 09:25 10 MG Hydromorphone HCl 2 mg Q4HPRN PRN IV 03/11/25 12:00 03/12/25 23:22 2 MG Zolpidem Tartrate 10 mg QPM PRN PO 03/11/25 20:00 03/13/25 18:34 10 MG Hydralazine HCl 10 mg Q6HP PRN IV 03/12/25 03:00 03/13/25 21:08 10 MG Cholecalciferol 4,000 unit DAILY PO 03/13/25 10:00 03/16/25 09:26 4,000 UNIT Sevelamer HCl 1,600 mg TIDWM PO 03/15/25 12:00 03/16/25 11:41 1,600 MG laboratory and microbiology Laboratory Tests 03/16/25 05:34 Test 03/16/25 05:34 Range/Units Serum Glucose 79 74-106 mg/dL Microbiology Date/Time Source Procedure Growth Status 03/08/25 04:33 Voided Urine Urine Culture - Final Complete 03/06/25 15:50 Blood Blood Culture - Final NO GROWTH AFTER 5 DAYS OF INCUBATION. Complete Problem List/Assessment/Plan Problem List/Assessment/Plan Acute kidney injury superimposed Chronic Kidney Disease stage IIIB secondary obstructive etiology Urinary retention Hematuria status post Vesical artery immobilization History of prostate cancer Bladder mass s/p resection Hypertension Anemia due to blood loss Metabolic acidosis hyponatremia HD treatment today will obtain outpatient renal clinic chair renal US--mild hydro--urology on case Plan discussed with: Patient My Orders My Orders Orders - JENNIFER VILLARREAL MD Procedure Category Date Status Time Hemodialysis Orders ORDERS 03/16/25 Transmitted 12:34 Dietary Evaluation Review Comments: Continue current plan of care Expected Outcomes/Goals: To meet >75% estimated needs Fu 5-7 days Total Time (mins): 35 CC Plasma Assessment Blood Product Administration S: [id number] JENNIFER VILLARREAL MD Mar 16, 2025 14:24
[2025-03-17] VITALS (8 sets, daily range): BP systolic 117–144; BP diastolic 71–90; PULSE 73–110; RESP 16–18; TEMP 98.3–98.6; O2SAT 90–93
[2025-03-17 06:31] LABS: Hematocrit 24.0 % (41.0-53.0); Hemoglobin 8.0 g/dL (13.5-17.5); Mean Corpuscular Hemoglobin 27.2 pg (28.0-32.0); Mean Corpuscular Volume 82.3 fL (80.0-100.0); Nucleated Red Blood Cells % 0.1 %
[2025-03-17 06:44] LABS: Alanine Aminotransferase 12 U/L (7-40); Anion Gap 8 (5-15); BUN/Creatinine Ratio 4.4 (10.0-20.0); Calcium 9.0 mg/dL (8.7-10.4); Chloride 101 mmol/L (98-107); Potassium 4.3 mmol/L (3.5-5.1); Sodium 141 mmol/L (136-145); Total Protein 5.7 g/dL (5.7-8.2)
[2025-03-17 06:45] LABS: Albumin 3.3 g/dL (3.2-4.8)
[2025-03-17 06:52] LABS: Alkaline Phosphatase 20 U/L (46-116); Bilirubin, Total 0.2 mg/dL (0.2-1.0); Blood Urea Nitrogen 26 mg/dL (9-23); Carbon Dioxide 32 mmol/L (20-31); Glucose 72 mg/dL (74-106)
--- NOTE | 2025-03-17 11:08 | DVHPN2 ---
Reviewed: Care Plan, H&P, Labs, Medications, Previous Orders, Radiology Changes from previous H/P or p: No Changes Eyes: No Pain, No Vision change, No Conjunctivae inflammation, No Eyelid inflammation, No Other, No Redness ENT: No Ear pain, No Ear discharge, No Nose pain, No Nose discharge, No Nose congestion, No Mouth pain, No Mouth swelling, No Throat pain, No Throat swelling, No Other Cardiovascular: No Chest Pain, No Palpitations, No Orthopnea, No Paroxysmal Noc. Dyspnea, No Edema, No Lt Headedness, No Other Respiratory: No Cough, No Dry, No Shortness of breath, No SOB with excertion, No Wheezing, No Hemoptysis, No Pleuritic Pain, No Sputum, No Other Gastrointestinal: No Nausea, No Vomiting, No Abdominal Pain, No Diarrhea, No Constipation, No Melena, No Hematochezia, No Other Genitourinary: No Dysuria, No Frequency, No Incontinence; Hematuria, Retention; No Other Musculoskeletal: No other, No neck pain, No shoulder pain, No arm pain, No back pain, No hand pain, No leg pain, No foot pain Skin: No Rash, No Lesions, No Jaundice, No Bruising, No Other Objective Vitals Vital Signs Date Time Temp Pulse Resp B/P (MAP) Pulse Ox O2 Delivery O2 Flow Rate FiO2 03/17/25 09:00 98.6 103 18 117/82 (94) 93 98.6 03/17/25 07:40 Room Air* 0 21 Intake/Output Intake and Output 03/17/25 07:00 Intake Total 1050 ml Output Total 2600 ml Balance -1550 ml Intake Oral 1000 ml IV Total 50 ml Output Urine Total 2600 ml Medications Current Medications Medications Dose Ordered Sig/Julia Route Start Time Stop Time Status Last Admin Dose Admin Ondansetron HCl 4 mg Q4HP PRN IV 03/05/25 21:15 Docusate Sodium 100 mg BIDPRN PRN PO 03/05/25 21:15 03/14/25 10:06 100 MG Acetaminophen 650 mg Q6HP PRN PO 03/05/25 21:15 03/11/25 02:57 650 MG Nitroglycerin 0.4 mg Q5MINP PRN SL 03/05/25 22:45 Morphine Sulfate 2 mg Q30M PRN IV 03/05/25 22:45 Cancel Ceftriaxone Sodium 50 ml @ 100 mls/hr DAILY@09 IV 03/07/25 09:00 03/17/25 08:42 100 MLS/HR Tamsulosin HCl 0.4 mg QPM PO 03/07/25 18:00 03/16/25 17:19 0.4 MG Pantoprazole Sodium 40 mg DAILY@0600 PO 03/08/25 06:00 03/17/25 06:32 40 MG Methocarbamol 500 mg Q8HR PRN PO 03/11/25 11:45 03/15/25 18:30 500 MG Tolterodine Tartrate 2 mg BID PO 03/11/25 12:51 03/17/25 08:42 2 MG Oxycodone HCl 10 mg Q12HR PO 03/11/25 22:00 03/17/25 08:44 10 MG Hydromorphone HCl 2 mg Q4HPRN PRN IV 03/11/25 12:00 03/12/25 23:22 2 MG Zolpidem Tartrate 10 mg QPM PRN PO 03/11/25 20:00 03/13/25 18:34 10 MG Hydralazine HCl 10 mg Q6HP PRN IV 03/12/25 03:00 03/13/25 21:08 10 MG Cholecalciferol 4,000 unit DAILY PO 03/13/25 10:00 03/17/25 08:43 4,000 UNIT Sevelamer HCl 1,600 mg TIDWM PO 03/15/25 12:00 03/17/25 08:43 1,600 MG Laboratory Results Laboratory Tests 03/17/25 05:22 Chemistry Test 03/17/25 05:22 Albumin 3.3 g/dL (3.2-4.8) Calcium Level 9.0 mg/dL (8.7-10.4) Total Protein 5.7 g/dL (5.7-8.2) LFT Test 03/17/25 05:22 Alanine Aminotransferase (ALT) 12 U/L (7-40) Alkaline Phosphatase 20 U/L (46-116) L Aspartate Amino Transferase (AST) 23 U/L (13-40) Total Bilirubin 0.2 mg/dL (0.2-1.0) Urinalysis Test 03/05/25 20:00 03/08/25 04:33 Urine Color Light-red (Yellow) Urine Clarity Ex.turbid (Clear) Urine pH 6.5 (5.0-9.0) Urine Specific [place] 1.011 (1.001-1.035) Urine Protein 2+ (Negative) H Urine Ketones Negative (Negative) Urine Blood 3+ /uL (Negative) H Urine Nitrite Negative (Negative) Urine Bilirubin Negative (Negative) Urine Urobilinogen Normal mg/dL (Negative) Urine Leukocyte Esterase 2+ /uL (Negative) Urine RBC 6312 /hpf (0 - 3) Urine Microscopic WBC 130 /HPF (0-3) H Urine Squamous Epithelial Cells None seen /hpf (<5) Urine Bacteria None seen /hpf (None Seen) Urine Glucose Normal mg/dL (Normal) Urine Creatinine 69.39 mg/dL (30.0-125.0) Urine Protein/Creatinine Ratio 3.98 Urine Sodium 98 mmol/L (40-220) Urine Total Protein 276.1 mg/dL (1-14) H Microbiology Microbiology Date/Time Source Procedure Growth Status 03/08/25 04:33 Voided Urine Urine Culture - Final Complete 03/06/25 15:50 Blood Blood Culture - Final NO GROWTH AFTER 5 DAYS OF INCUBATION. Complete Labs and/or images reviewed: Labs reviewed by me, Image(s) reviewed by me Assessment/Plan Assessment/Plan Acute symptomatic anemia hemoglobin 6.5, improved to 8.7 after 2 unit RBC transfusion Acute urinary retention : Bladder tumor/mass Status post transurethral resection of the bladder tumor by Dr Larson on 03-09-25 Embolization of the left vesical artery by radiologist ordered by Dr. Larson, as complete hemostasis could not be secured during the TURBT procedure, status post embolization by the Radiologist Dr Quarles Patient getting three-way continuous bladder irrigation Acute bilateral hydronephrosis History of prostate cancer status post radical prostatectomy 2017 Hematuria Suspect contrast induced nephropathy, urology advised definitive oncologic management i.e. cystectomy or chemo radiation evaluation and as outpatient Acute kidney injury requiring dialysis, receiving hemodialysis and improving, awaiting outpatient chair time. Acute generalized weakness s Plan discussed with: Patient Date of Service: Mar 17, 2025 Billing Provider: JULES MCKEON MD Common Visit Codes: [id number] INP/OBS CARE(HIGH) JULES MCKEON MD Mar 17, 2025 11:08
--- NOTE | 2025-03-17 14:21 | DVHPN2 ---
Progress Note Date Seen: Mar 17, 2025 Medical Necessity Reason Pt with a Central, PICC or Fol: Yes The following are medically ne: Central Line, Goodman Catheter Reason for goodman catheter: Bladder Retention/Obstruc Objective vital signs Vital Sign Date Time Temp Pulse Resp B/P (MAP) Pulse Ox O2 Delivery O2 Flow Rate FiO2 03/17/25 12:36 98.5 98 18 122/81 (95) 90 98.5 03/17/25 07:40 Room Air* 0 21 Total Intake and Output 03/16/25 03/16/25 03/17/25 15:00 23:00 07:00 Intake Total 450 ml 600 ml Output Total 1750 ml 850 ml Balance -1300 ml -250 ml medications Current Medications Medications Dose Ordered Sig/Julia Route Start Time Stop Time Status Last Admin Dose Admin Ondansetron HCl 4 mg Q4HP PRN IV 03/05/25 21:15 Docusate Sodium 100 mg BIDPRN PRN PO 03/05/25 21:15 03/14/25 10:06 100 MG Acetaminophen 650 mg Q6HP PRN PO 03/05/25 21:15 03/11/25 02:57 650 MG Nitroglycerin 0.4 mg Q5MINP PRN SL 03/05/25 22:45 Morphine Sulfate 2 mg Q30M PRN IV 03/05/25 22:45 Cancel Ceftriaxone Sodium 50 ml @ 100 mls/hr DAILY@09 IV 03/07/25 09:00 03/17/25 08:42 100 MLS/HR Tamsulosin HCl 0.4 mg QPM PO 03/07/25 18:00 03/16/25 17:19 0.4 MG Pantoprazole Sodium 40 mg DAILY@0600 PO 03/08/25 06:00 03/17/25 06:32 40 MG Methocarbamol 500 mg Q8HR PRN PO 03/11/25 11:45 03/15/25 18:30 500 MG Tolterodine Tartrate 2 mg BID PO 03/11/25 12:51 03/17/25 08:42 2 MG Oxycodone HCl 10 mg Q12HR PO 03/11/25 22:00 03/17/25 08:44 10 MG Hydromorphone HCl 2 mg Q4HPRN PRN IV 03/11/25 12:00 03/12/25 23:22 2 MG Zolpidem Tartrate 10 mg QPM PRN PO 03/11/25 20:00 03/13/25 18:34 10 MG Hydralazine HCl 10 mg Q6HP PRN IV 03/12/25 03:00 03/13/25 21:08 10 MG Cholecalciferol 4,000 unit DAILY PO 03/13/25 10:00 03/17/25 08:43 4,000 UNIT Sevelamer HCl 1,600 mg TIDWM PO 03/15/25 12:00 03/17/25 12:03 1,600 MG Examination: GENERAL:Normal, CVS:Normal, SKIN:Normal, :Abnormal laboratory and microbiology Laboratory Tests 03/17/25 05:22 Test 03/17/25 05:22 Range/Units Serum Glucose 72 L 74-106 mg/dL Microbiology Date/Time Source Procedure Growth Status 03/08/25 04:33 Voided Urine Urine Culture - Final Complete 03/06/25 15:50 Blood Blood Culture - Final NO GROWTH AFTER 5 DAYS OF INCUBATION. Complete Problem List/Assessment/Plan Problem List/Assessment/Plan Acute kidney injury superimposed Chronic Kidney Disease stage IIIB secondary obstructive etiology -> TRENT/ATN requiring HD Urinary retention Hematuria status post Vesical artery immobilization History of prostate cancer Bladder mass s/p resection Hypertension Anemia due to blood loss Metabolic acidosis hyponatremia HD treatment tomorrow still has residual UOP keep diuretics will obtain outpatient renal clinic chair pending insurance auth renal US--mild hydro--urology on case Plan discussed with: Patient Dietary Evaluation Review Comments: Continue current plan of care Expected Outcomes/Goals: To meet >75% estimated needs Fu 5-7 days CC Plasma Assessment Blood Product Administration S: [id number] JENNIFER VILLARREAL MD Mar 17, 2025 14:21
[2025-03-17] MEDS: IRON SUCROSE COMPLEX 110 ML IV SCH (16:42)
[2025-03-18] VITALS (10 sets, daily range): BP systolic 121–151; BP diastolic 77–91; PULSE 78–109; RESP 17–18; TEMP 97.6–99.7; O2SAT 93–98
[2025-03-18 06:07] LABS: Alanine Aminotransferase 14 U/L (7-40); Anion Gap 9 (5-15); BUN/Creatinine Ratio 5.0 (10.0-20.0); Calcium 9.3 mg/dL (8.7-10.4); Carbon Dioxide 29 mmol/L (20-31); Chloride 100 mmol/L (98-107); Glucose 79 mg/dL (74-106); Potassium 4.2 mmol/L (3.5-5.1); Sodium 138 mmol/L (136-145); Total Protein 5.8 g/dL (5.7-8.2)
[2025-03-18 06:08] LABS: Albumin 3.3 g/dL (3.2-4.8)
[2025-03-18 06:09] LABS: Hemoglobin 7.9 g/dL (13.5-17.5)
[2025-03-18 06:11] LABS: Hematocrit 23.7 % (41.0-53.0); Mean Corpuscular Hemoglobin 27.7 pg (28.0-32.0); Mean Corpuscular Volume 83.0 fL (80.0-100.0); Nucleated Red Blood Cells % 0.0 %
[2025-03-18 06:26] LABS: Alkaline Phosphatase 19 U/L (46-116); Bilirubin, Total 0.2 mg/dL (0.2-1.0); Blood Urea Nitrogen 26 mg/dL (9-23)
[2025-03-18] MEDS: SODIUM CHL 0.9% 1000 ML BAG XX ONE (07:00)
--- NOTE | 2025-03-18 09:15 | DVHPN2 ---
Reviewed: Care Plan, H&P, Labs, Medications, Previous Orders, Radiology Changes from previous H/P or p: No Changes Eyes: No Pain, No Vision change, No Conjunctivae inflammation, No Eyelid inflammation, No Other, No Redness ENT: No Ear pain, No Ear discharge, No Nose pain, No Nose discharge, No Nose congestion, No Mouth pain, No Mouth swelling, No Throat pain, No Throat swelling, No Other Cardiovascular: No Chest Pain, No Palpitations, No Orthopnea, No Paroxysmal Noc. Dyspnea, No Edema, No Lt Headedness, No Other Respiratory: No Cough, No Dry, No Shortness of breath, No SOB with excertion, No Wheezing, No Hemoptysis, No Pleuritic Pain, No Sputum, No Other Gastrointestinal: No Nausea, No Vomiting, No Abdominal Pain, No Diarrhea, No Constipation, No Melena, No Hematochezia, No Other Genitourinary: No Dysuria, No Frequency, No Incontinence; Hematuria, Retention; No Other Musculoskeletal: No other, No neck pain, No shoulder pain, No arm pain, No back pain, No hand pain, No leg pain, No foot pain Skin: No Rash, No Lesions, No Jaundice, No Bruising, No Other Objective Vitals Vital Signs Date Time Temp Pulse Resp B/P (MAP) Pulse Ox O2 Delivery O2 Flow Rate FiO2 03/18/25 05:00 98.2 100 18 132/83 (99) 94 98.2 03/17/25 20:00 Room Air* 0 21 Intake/Output Intake and Output 03/18/25 07:00 Intake Total 1260 ml Output Total 3525 ml Balance -2265 ml Intake Oral 1100 ml IV Total 160 ml Output Urine Total 3525 ml Medications Current Medications Medications Dose Ordered Sig/Julia Route Start Time Stop Time Status Last Admin Dose Admin Ondansetron HCl 4 mg Q4HP PRN IV 03/05/25 21:15 Docusate Sodium 100 mg BIDPRN PRN PO 03/05/25 21:15 03/17/25 21:33 100 MG Acetaminophen 650 mg Q6HP PRN PO 03/05/25 21:15 03/11/25 02:57 650 MG Nitroglycerin 0.4 mg Q5MINP PRN SL 03/05/25 22:45 Morphine Sulfate 2 mg Q30M PRN IV 03/05/25 22:45 Cancel Ceftriaxone Sodium 50 ml @ 100 mls/hr DAILY@09 IV 03/07/25 09:00 03/17/25 08:42 100 MLS/HR Tamsulosin HCl 0.4 mg QPM PO 03/07/25 18:00 03/17/25 17:29 0.4 MG Pantoprazole Sodium 40 mg DAILY@0600 PO 03/08/25 06:00 03/18/25 05:01 40 MG Methocarbamol 500 mg Q8HR PRN PO 03/11/25 11:45 03/17/25 21:34 500 MG Tolterodine Tartrate 2 mg BID PO 03/11/25 12:51 03/17/25 21:34 2 MG Oxycodone HCl 10 mg Q12HR PO 03/11/25 22:00 03/17/25 21:33 10 MG Hydromorphone HCl 2 mg Q4HPRN PRN IV 03/11/25 12:00 03/12/25 23:22 2 MG Zolpidem Tartrate 10 mg QPM PRN PO 03/11/25 20:00 03/13/25 18:34 10 MG Hydralazine HCl 10 mg Q6HP PRN IV 03/12/25 03:00 03/13/25 21:08 10 MG Cholecalciferol 4,000 unit DAILY PO 03/13/25 10:00 03/17/25 08:43 4,000 UNIT Sevelamer HCl 1,600 mg TIDWM PO 03/15/25 12:00 03/17/25 17:30 1,600 MG Iron Sucrose 110 ml @ 110 mls/hr DAILY@1200 IV 03/17/25 14:30 03/21/25 12:59 03/17/25 16:42 110 MLS/HR Laboratory Results Laboratory Tests 03/18/25 05:25 Chemistry Test 03/18/25 05:25 Albumin 3.3 g/dL (3.2-4.8) Calcium Level 9.3 mg/dL (8.7-10.4) Total Protein 5.8 g/dL (5.7-8.2) LFT Test 03/18/25 05:25 Alanine Aminotransferase (ALT) 14 U/L (7-40) Alkaline Phosphatase 19 U/L (46-116) L Aspartate Amino Transferase (AST) 21 U/L (13-40) Total Bilirubin 0.2 mg/dL (0.2-1.0) Urinalysis Test 03/05/25 20:00 03/08/25 04:33 Urine Color Light-red (Yellow) Urine Clarity Ex.turbid (Clear) Urine pH 6.5 (5.0-9.0) Urine Specific [place] 1.011 (1.001-1.035) Urine Protein 2+ (Negative) H Urine Ketones Negative (Negative) Urine Blood 3+ /uL (Negative) H Urine Nitrite Negative (Negative) Urine Bilirubin Negative (Negative) Urine Urobilinogen Normal mg/dL (Negative) Urine Leukocyte Esterase 2+ /uL (Negative) Urine RBC 6312 /hpf (0 - 3) Urine Microscopic WBC 130 /HPF (0-3) H Urine Squamous Epithelial Cells None seen /hpf (<5) Urine Bacteria None seen /hpf (None Seen) Urine Glucose Normal mg/dL (Normal) Urine Creatinine 69.39 mg/dL (30.0-125.0) Urine Protein/Creatinine Ratio 3.98 Urine Sodium 98 mmol/L (40-220) Urine Total Protein 276.1 mg/dL (1-14) H Microbiology Microbiology Date/Time Source Procedure Growth Status 03/08/25 04:33 Voided Urine Urine Culture - Final Complete 03/06/25 15:50 Blood Blood Culture - Final NO GROWTH AFTER 5 DAYS OF INCUBATION. Complete Labs and/or images reviewed: Labs reviewed by me, Image(s) reviewed by me Assessment/Plan Assessment/Plan Acute symptomatic anemia hemoglobin 6.5, improved to 8.7 after 2 unit RBC transfusion Acute urinary retention : Bladder tumor/mass Status post transurethral resection of the bladder tumor by Dr Larson on 03-09-25 Embolization of the left vesical artery by radiologist ordered by Dr. Larson, as complete hemostasis could not be secured during the TURBT procedure, status post embolization by the Radiologist Dr Quarles Patient getting three-way continuous bladder irrigation Acute bilateral hydronephrosis History of prostate cancer status post radical prostatectomy 2016 Hematuria Suspect contrast induced nephropathy, urology advised definitive oncologic management i.e. cystectomy or chemo radiation evaluation and as outpatient Acute kidney injury requiring dialysis, receiving hemodialysis and improving, awaiting outpatient chair time. Acute generalized weakness s Plan discussed with: Patient Date of Service: Mar 18, 2025 Billing Provider: JULES MCKEON MD Common Visit Codes: [id number] INP/OBS CARE(HIGH) JULES MCKEON MD Mar 18, 2025 09:15
--- NOTE | 2025-03-18 13:19 | DVHPN2 ---
Progress Note - Dictate Date Seen: Mar 18, 2025 Medical Necessity Reason Pt with a Central, PICC or Fol: Yes The following are medically ne: Central Line, Goodman Catheter Reason for goodman catheter: Bladder Retention/Obstruc Subjective Patient seen on dialysis, patient's at bedside. Hemodialysis nurse at bedside. vital signs Vital Sign Date Time Temp Pulse Resp B/P (MAP) Pulse Ox O2 Delivery O2 Flow Rate FiO2 03/18/25 12:21 97.9 87 18 147/87 (107) 98 97.9 03/17/25 20:00 Room Air* 0 21 Total Intake and Output 03/17/25 03/17/25 03/18/25 15:00 23:00 07:00 Intake Total 50 ml 860 ml 350 ml Output Total 1400 ml 2125 ml Balance 50 ml -540 ml -1775 ml medications Current Medications Medications Dose Ordered Sig/Julia Route Start Time Stop Time Status Last Admin Dose Admin Ondansetron HCl 4 mg Q4HP PRN IV 03/05/25 21:15 Docusate Sodium 100 mg BIDPRN PRN PO 03/05/25 21:15 03/17/25 21:33 100 MG Acetaminophen 650 mg Q6HP PRN PO 03/05/25 21:15 03/11/25 02:57 650 MG Nitroglycerin 0.4 mg Q5MINP PRN SL 03/05/25 22:45 Morphine Sulfate 2 mg Q30M PRN IV 03/05/25 22:45 Cancel Tamsulosin HCl 0.4 mg QPM PO 03/07/25 18:00 03/17/25 17:29 0.4 MG Pantoprazole Sodium 40 mg DAILY@0600 PO 03/08/25 06:00 03/18/25 05:01 40 MG Methocarbamol 500 mg Q8HR PRN PO 03/11/25 11:45 03/18/25 09:25 500 MG Tolterodine Tartrate 2 mg BID PO 03/11/25 12:51 03/18/25 09:16 2 MG Oxycodone HCl 10 mg Q12HR PO 03/11/25 22:00 03/18/25 09:17 10 MG Hydromorphone HCl 2 mg Q4HPRN PRN IV 03/11/25 12:00 03/12/25 23:22 2 MG Zolpidem Tartrate 10 mg QPM PRN PO 03/11/25 20:00 03/13/25 18:34 10 MG Hydralazine HCl 10 mg Q6HP PRN IV 03/12/25 03:00 03/13/25 21:08 10 MG Cholecalciferol 4,000 unit DAILY PO 03/13/25 10:00 03/18/25 09:17 4,000 UNIT Sevelamer HCl 1,600 mg TIDWM PO 03/15/25 12:00 03/18/25 09:17 1,600 MG Iron Sucrose 110 ml @ 110 mls/hr DAILY@1200 IV 03/17/25 14:30 03/21/25 12:59 03/17/25 16:42 110 MLS/HR objective Gen: nad heent: nc/at, mmm lungs: cta anteriorly cvs: no rub abd: soft, bowel sounds audible ext: no edema skin: no rash neuro: alert and oriented laboratory and microbiology Laboratory Tests 03/18/25 05:25 Test 03/18/25 05:25 Range/Units Serum Glucose 79 74-106 mg/dL Assessment/Plan Problem List/Assessment/Plan Acute kidney injury superimposed Chronic Kidney Disease stage IIIB secondary obstructive etiology -> TRENT/ATN requiring HD Urinary retention Hematuria status post Vesical artery immobilization History of prostate cancer Bladder mass s/p resection Hypertension Anemia due to blood loss Metabolic acidosis hyponatremia - UF as hemodynamics permit today. - clinically stable for discharge from Nephrology perspective pending outpatient chair time. - discussed with patient and his regarding plan of care Dietary Evaluation Review Comments: Continue current plan of care Expected Outcomes/Goals: To meet >75% estimated needs Fu 5-7 days Plan discussed with: Patient, Spouse CC Plasma Assessment Blood Product Administration S: [id number] MAGDALENE COTO MD Mar 18, 2025 13:19
[2025-03-18] MEDS: EPOETIN ALFA-EPBX 10,000 UNIT/1ML VIAL SC ONE (21:13)
[2025-03-19] VITALS (11 sets, daily range): BP systolic 109–142; BP diastolic 76–92; PULSE 78–115; RESP 17–20; TEMP 97.5–98.9; O2SAT 92–97
[2025-03-19 07:26] LABS: Nucleated Red Blood Cells % 0.1 %
[2025-03-19 07:28] LABS: Hematocrit 21.6 % (41.0-53.0); Hemoglobin 7.2 g/dL (13.5-17.5); Mean Corpuscular Hemoglobin 27.7 pg (28.0-32.0); Mean Corpuscular Volume 83.4 fL (80.0-100.0)
[2025-03-19 07:44] LABS: Anion Gap 7 (5-15); BUN/Creatinine Ratio 4.9 (10.0-20.0); Blood Urea Nitrogen 15 mg/dL (9-23); Calcium 9.1 mg/dL (8.7-10.4); Carbon Dioxide 29 mmol/L (20-31); Chloride 102 mmol/L (98-107); Glucose 75 mg/dL (74-106); Potassium 4.2 mmol/L (3.5-5.1); Sodium 138 mmol/L (136-145)
[2025-03-19 07:51] LABS: Alanine Aminotransferase < 9 U/L (7-40); Albumin 3.2 g/dL (3.2-4.8); Alkaline Phosphatase 18 U/L (46-116); Bilirubin, Total 0.2 mg/dL (0.2-1.0); Total Protein 5.5 g/dL (5.7-8.2)
--- NOTE | 2025-03-19 10:30 | DVHINCON2 ---
Date of service: Mar 19, 2025 Referring Physician Betzaida Larson Reason for Consultation followup covering this weekend History of Present Illness one week s/p tur massive bladder tumor still with slight hematuria today appears crystal clear accept for some settling of rbcs Past Medical History reviewed Past Surgical History radical prostatectomy 2017 Allergies: Coded Allergies: NO KNOWN ALLERGIES (Unverified , 03/05/25) Home Meds No Active Prescriptions or Reported Meds Review of Systems reviewed Vital Signs Vital Signs Date Time Temp Pulse Resp B/P (MAP) Pulse Ox O2 Delivery O2 Flow Rate FiO2 03/19/25 09:00 98.4 108 18 113/78 (90) 93 98.4 03/19/25 08:00 Room Air* 0 21 Physical Exam goodman crysal clear Labs/Diagnostic Data Labs Test 03/19/25 06:26 03/17/25 14:22 03/15/25 07:24 03/14/25 05:17 Range/Units White Blood Count 10.6 4.4-10.8 10^3/uL Red Blood Count 2.59 L 4.5-5.90 10^6/uL Hemoglobin 7.2 L 13.5-17.5 g/dL Hematocrit 21.6 L 41.0-53.0 % Mean Corpuscular Volume 83.4 80.0-100.0 fL Mean Corpuscular Hemoglobin 27.7 L 28.0-32.0 pg Mean Corpuscular Hemoglobin Concent 33.2 32.0-36.0 g/dL Red Cell Distribution Width 20.0 H 11.8-14.3 % Platelet Count 413 140-450 10^3/uL Mean Platelet Volume 7.6 6.9-10.8 fL Neutrophils (%) (Auto) 80.0 37.0-80.0 % Lymphocytes (%) (Auto) 5.8 L 10.0-50.0 % Monocytes (%) (Auto) 8.9 0.0-12.0 % Eosinophils (%) (Auto) 4.8 0.0-7.0 % Basophils (%) (Auto) 0.5 0.0-2.0 % Neutrophils # (Auto) 8.4 1.6-8.6 10 ^3/uL Lymphocytes # (Auto) 0.6 0.4-5.4 10 ^3/uL Monocytes # (Auto) 0.9 0-1.3 10 ^3/uL Eosinophils # (Auto) 0.5 0-0.8 10 ^3/uL Basophils # (Auto) 0 0-0.2 10 ^3/uL Nucleated Red Blood Cells 0.1 % Sodium Level 138 136-145 mmol/L Potassium Level 4.2 3.5-5.1 mmol/L Chloride Level 102 98-107 mmol/L Carbon Dioxide Level 29 20-31 mmol/L Anion Gap 7 5-15 Blood Urea Nitrogen 15 # 9-23 mg/dL Creatinine 3.07 #H 0.700-1.30 mg/dL Glomerular Filtration Rate Calc 20 >90 mL/min BUN/Creatinine Ratio 4.9 L 10.0-20.0 Serum Glucose 75 74-106 mg/dL Calcium Level 9.1 8.7-10.4 mg/dL Total Bilirubin 0.2 0.2-1.0 mg/dL Aspartate Amino Transferase (AST) 19 13-40 U/L Alanine Aminotransferase (ALT) < 9 7-40 U/L Alkaline Phosphatase 18 L 46-116 U/L Total Protein 5.5 L 5.7-8.2 g/dL Albumin 3.2 3.2-4.8 g/dL Ferritin 32.0 22-322 ng/mL Phosphorus Level 7.8 H 2.4-5.1 mg/dL Iron Level 19 L 65-175 ug/dL Total Iron Binding Capacity 285 250-425 ug/dL Percent Iron Saturation 6.7 L 20-55 % Hepatitis B Surface Antigen Negative Negative Test 03/13/25 04:42 03/08/25 19:17 03/08/25 04:33 03/07/25 20:22 Range/Units Serum Immunoglobulin G 2070 271-9410 mg/dL Magnesium Level 2.1 1.6-2.6 mg/dL Globulin (PEP) 3.4 2.2-3.9 g/dL Albumin/Globulin Ratio 0.7 0.7-1.7 Ogekw-3-Eujotqftp 0.4 0.0-0.4 g/dL Jlrda-9-Tdxzghrlk 1.0 0.4-1.0 g/dL Beta Globulins 1.0 0.7-1.3 g/dL Gamma Globulins 1.0 0.4-1.8 g/dL Protein Electrophoresis M-Keven Not observed Not Observed g/dL Protein Electrophoresis Note Comment . Immunoglobulin A 179 61-437 mg/dL Immunoglobulin M 127 15-143 mg/dL Serum Immunofixation Comment . Free [place] Light Chains, Quant 45.3 H 3.3-19.4 mg/L Free [place]/Lambda Light Chain Ratio 1.70 H 0.26-1.65 Differential Total Cells Counted 100.0 100 Neutrophils % (Manual) 90 H 37.0-80.0 Band Neutrophils % (Manual) 7 Lymphocytes % (Manual) 2 L 10.0-50.0 Monocytes % (Manual) 1 0-12 Eosinophils % (Manual) 0 0-7 Basophils % (Manual) 0 0.0-2.0 Metamyelocytes % (manual) 0 Myelocytes % (Manual) 0 Promyelocytes % (Manual) 0 Blast Cells % (Manual) 0 Reactive Lymphocytes 0 Platelet Estimate Adequate Large Platelets Few Urine Creatinine 69.39 30.0-125.0 mg/dL Urine Protein/Creatinine Ratio 3.98 Urine Sodium 98 40-220 mmol/L Urine Total Protein 276.1 H 1-14 mg/dL Stool Occult Blood Negative Negative Stool Occult Blood Sample #3 Negative Test 03/06/25 15:45 03/06/25 07:02 03/06/25 04:08 03/05/25 20:00 Range/Units Free Prostate Specific Antigen 0.20 N/A ng/mL Percent Free Prostate Specific Ag 9.5 . % Prostate Specific Antigen Total 2.1 0.0-4.0 ng/mL Vitamin D 25-Hydroxy 22.0 L 30.0-100 ng/mL Parathyroid Hormone (Intact) 109.4 H 18.4-80.1 pg/mL SARS-CoV-2 Antigen (Rapid) Negative NEGATIVE Urine Color Light-red Yellow Urine Clarity Ex.turbid Clear Urine pH 6.5 5.0-9.0 Urine Specific [place] 1.011 1.001-1.035 Urine Protein 2+ H Negative Urine Ketones Negative Negative Urine Blood 3+ H Negative /uL Urine Nitrite Negative Negative Urine Bilirubin Negative Negative Urine Urobilinogen Normal Negative mg/dL Urine Leukocyte Esterase 2+ Negative /uL Urine RBC 6312 0 - 3 /hpf Urine Microscopic WBC 130 H 0-3 /HPF Urine Squamous Epithelial Cells None seen <5 /hpf Urine Bacteria None seen None Seen /hpf Urine Glucose Normal Normal mg/dL Test 03/05/25 18:30 Range/Units Prothrombin Time 10.9 9.3-11.8 sec Prothrombin Time INR 1.03 0.9-1.15 Activated Partial Thromboplast Time 26.3 24.5-34.5 SEC Lactic Acid Level 0.7 0.4-2.0 mmol/L Microbiology Date/Time Source Procedure Growth Status 03/08/25 04:33 Voided Urine Urine Culture - Final Complete 03/06/25 15:50 Blood Blood Culture - Final NO GROWTH AFTER 5 DAYS OF INCUBATION. Complete Assessment improving Plan/Recommendation d/c cbi and leg bag ambulate into chair Plan discussed with: Patient MATEUS STEVENSON MD Mar 19, 2025 10:30
--- NOTE | 2025-03-19 10:41 | DVHPN2 ---
Reviewed: Care Plan, H&P, Labs, Medications, Previous Orders, Radiology Changes from previous H/P or p: No Changes Eyes: No Pain, No Vision change, No Conjunctivae inflammation, No Eyelid inflammation, No Other, No Redness ENT: No Ear pain, No Ear discharge, No Nose pain, No Nose discharge, No Nose congestion, No Mouth pain, No Mouth swelling, No Throat pain, No Throat swelling, No Other Cardiovascular: No Chest Pain, No Palpitations, No Orthopnea, No Paroxysmal Noc. Dyspnea, No Edema, No Lt Headedness, No Other Respiratory: No Cough, No Dry, No Shortness of breath, No SOB with excertion, No Wheezing, No Hemoptysis, No Pleuritic Pain, No Sputum, No Other Gastrointestinal: No Nausea, No Vomiting, No Abdominal Pain, No Diarrhea, No Constipation, No Melena, No Hematochezia, No Other Genitourinary: No Dysuria, No Frequency, No Incontinence; Hematuria, Retention; No Other Musculoskeletal: No other, No neck pain, No shoulder pain, No arm pain, No back pain, No hand pain, No leg pain, No foot pain Skin: No Rash, No Lesions, No Jaundice, No Bruising, No Other Objective Vitals Vital Signs Date Time Temp Pulse Resp B/P (MAP) Pulse Ox O2 Delivery O2 Flow Rate FiO2 03/19/25 09:00 98.4 108 18 113/78 (90) 93 98.4 03/19/25 08:00 Room Air* 0 21 Intake/Output Intake and Output 03/19/25 07:00 Intake Total 1270 ml Output Total 3750 ml Balance -2480 ml Intake Oral 1110 ml IV Total 160 ml Output Urine Total 3750 ml Medications Current Medications Medications Dose Ordered Sig/Julia Route Start Time Stop Time Status Last Admin Dose Admin Ondansetron HCl 4 mg Q4HP PRN IV 03/05/25 21:15 Docusate Sodium 100 mg BIDPRN PRN PO 03/05/25 21:15 03/17/25 21:33 100 MG Acetaminophen 650 mg Q6HP PRN PO 03/05/25 21:15 03/11/25 02:57 650 MG Nitroglycerin 0.4 mg Q5MINP PRN SL 03/05/25 22:45 Morphine Sulfate 2 mg Q30M PRN IV 03/05/25 22:45 Cancel Tamsulosin HCl 0.4 mg QPM PO 03/07/25 18:00 03/18/25 18:08 0.4 MG Pantoprazole Sodium 40 mg DAILY@0600 PO 03/08/25 06:00 03/19/25 06:10 40 MG Methocarbamol 500 mg Q8HR PRN PO 03/11/25 11:45 03/19/25 09:50 500 MG Tolterodine Tartrate 2 mg BID PO 03/11/25 12:51 03/19/25 09:51 2 MG Oxycodone HCl 10 mg Q12HR PO 03/11/25 22:00 03/19/25 09:51 10 MG Hydromorphone HCl 2 mg Q4HPRN PRN IV 03/11/25 12:00 03/12/25 23:22 2 MG Zolpidem Tartrate 10 mg QPM PRN PO 03/11/25 20:00 03/13/25 18:34 10 MG Hydralazine HCl 10 mg Q6HP PRN IV 03/12/25 03:00 03/13/25 21:08 10 MG Cholecalciferol 4,000 unit DAILY PO 03/13/25 10:00 03/19/25 09:50 4,000 UNIT Sevelamer HCl 1,600 mg TIDWM PO 03/15/25 12:00 03/19/25 09:50 1,600 MG Iron Sucrose 110 ml @ 110 mls/hr DAILY@1200 IV 03/17/25 14:30 03/21/25 12:59 03/18/25 13:21 110 MLS/HR Laboratory Results Laboratory Tests 03/19/25 06:26 Chemistry Test 03/19/25 06:26 Albumin 3.2 g/dL (3.2-4.8) Calcium Level 9.1 mg/dL (8.7-10.4) Total Protein 5.5 g/dL (5.7-8.2) L LFT Test 03/19/25 06:26 Alanine Aminotransferase (ALT) < 9 U/L (7-40) Alkaline Phosphatase 18 U/L (46-116) L Aspartate Amino Transferase (AST) 19 U/L (13-40) Total Bilirubin 0.2 mg/dL (0.2-1.0) Urinalysis Test 03/05/25 20:00 03/08/25 04:33 Urine Color Light-red (Yellow) Urine Clarity Ex.turbid (Clear) Urine pH 6.5 (5.0-9.0) Urine Specific [place] 1.011 (1.001-1.035) Urine Protein 2+ (Negative) H Urine Ketones Negative (Negative) Urine Blood 3+ /uL (Negative) H Urine Nitrite Negative (Negative) Urine Bilirubin Negative (Negative) Urine Urobilinogen Normal mg/dL (Negative) Urine Leukocyte Esterase 2+ /uL (Negative) Urine RBC 6312 /hpf (0 - 3) Urine Microscopic WBC 130 /HPF (0-3) H Urine Squamous Epithelial Cells None seen /hpf (<5) Urine Bacteria None seen /hpf (None Seen) Urine Glucose Normal mg/dL (Normal) Urine Creatinine 69.39 mg/dL (30.0-125.0) Urine Protein/Creatinine Ratio 3.98 Urine Sodium 98 mmol/L (40-220) Urine Total Protein 276.1 mg/dL (1-14) H Microbiology Microbiology Date/Time Source Procedure Growth Status 03/08/25 04:33 Voided Urine Urine Culture - Final Complete 03/06/25 15:50 Blood Blood Culture - Final NO GROWTH AFTER 5 DAYS OF INCUBATION. Complete Labs and/or images reviewed: Labs reviewed by me, Image(s) reviewed by me Assessment/Plan Assessment/Plan Acute symptomatic anemia hemoglobin 6.5, improved to 8.7 after 2 unit RBC transfusion down to 7.2 will transfuse one more unit today Acute urinary retention : Bladder tumor/mass Status post transurethral resection of the bladder tumor by Dr Larson on 03-09-25 Embolization of the left vesical artery by radiologist ordered by Dr. Larson, as complete hemostasis could not be secured during the TURBT procedure, status post embolization by the Radiologist Dr Quarles Patient getting three-way continuous bladder irrigation Acute bilateral hydronephrosis History of prostate cancer status post radical prostatectomy 2016 Hematuria Suspect contrast induced nephropathy, urology advised definitive oncologic management i.e. cystectomy or chemo radiation evaluation and as outpatient Acute kidney injury requiring dialysis, receiving hemodialysis and improving, awaiting outpatient chair time. Acute generalized weakness s Plan discussed with: Patient Date of Service: Mar 19, 2025 Billing Provider: JULES MCKEON MD Common Visit Codes: [id number] INP/OBS CARE(HIGH) JULES MCKEON MD Mar 19, 2025 10:41
--- NOTE | 2025-03-19 10:52 | DVHPN2 ---
Progress Note - Dictate Date Seen: Mar 19, 2025 Medical Necessity Reason Pt with a Central, PICC or Fol: Yes The following are medically ne: Central Line, Goodman Catheter Reason for goodman catheter: Bladder Retention/Obstruc Subjective Awake and alert vital signs Vital Sign Date Time Temp Pulse Resp B/P (MAP) Pulse Ox O2 Delivery O2 Flow Rate FiO2 03/19/25 09:00 98.4 108 18 113/78 (90) 93 98.4 03/19/25 08:00 Room Air* 0 21 Total Intake and Output 03/18/25 03/18/25 03/19/25 15:00 23:00 07:00 Intake Total 50 ml 770 ml 450 ml Output Total 1600 ml 2150 ml Balance 50 ml -830 ml -1700 ml medications Current Medications Medications Dose Ordered Sig/Julia Route Start Time Stop Time Status Last Admin Dose Admin Ondansetron HCl 4 mg Q4HP PRN IV 03/05/25 21:15 Docusate Sodium 100 mg BIDPRN PRN PO 03/05/25 21:15 03/17/25 21:33 100 MG Acetaminophen 650 mg Q6HP PRN PO 03/05/25 21:15 03/11/25 02:57 650 MG Nitroglycerin 0.4 mg Q5MINP PRN SL 03/05/25 22:45 Morphine Sulfate 2 mg Q30M PRN IV 03/05/25 22:45 Cancel Tamsulosin HCl 0.4 mg QPM PO 03/07/25 18:00 03/18/25 18:08 0.4 MG Pantoprazole Sodium 40 mg DAILY@0600 PO 03/08/25 06:00 03/19/25 06:10 40 MG Methocarbamol 500 mg Q8HR PRN PO 03/11/25 11:45 03/19/25 09:50 500 MG Tolterodine Tartrate 2 mg BID PO 03/11/25 12:51 03/19/25 09:51 2 MG Oxycodone HCl 10 mg Q12HR PO 03/11/25 22:00 03/19/25 09:51 10 MG Hydromorphone HCl 2 mg Q4HPRN PRN IV 03/11/25 12:00 03/12/25 23:22 2 MG Zolpidem Tartrate 10 mg QPM PRN PO 03/11/25 20:00 03/13/25 18:34 10 MG Hydralazine HCl 10 mg Q6HP PRN IV 03/12/25 03:00 03/13/25 21:08 10 MG Cholecalciferol 4,000 unit DAILY PO 03/13/25 10:00 03/19/25 09:50 4,000 UNIT Sevelamer HCl 1,600 mg TIDWM PO 03/15/25 12:00 03/19/25 09:50 1,600 MG Iron Sucrose 110 ml @ 110 mls/hr DAILY@1200 IV 03/17/25 14:30 03/21/25 12:59 03/18/25 13:21 110 MLS/HR objective Gen: nad heent: nc/at, mmm lungs: cta anteriorly cvs: no rub abd: soft, bowel sounds audible ext: no edema skin: no rash neuro: alert and oriented laboratory and microbiology Laboratory Tests 03/19/25 06:26 Test 03/19/25 06:26 Range/Units Serum Glucose 75 74-106 mg/dL Assessment/Plan Problem List/Assessment/Plan Acute kidney injury superimposed Chronic Kidney Disease stage IIIB secondary obstructive etiology -> TRENT/ATN requiring HD Urinary retention Hematuria status post Vesical artery immobilization History of prostate cancer Bladder mass s/p resection Hypertension Anemia due to blood loss Metabolic acidosis hyponatremia - clinically stable from Nephrology perspective - next hemodialysis tentatively FridayMarch 21 Dietary Evaluation Review Comments: Continue current plan of care Expected Outcomes/Goals: To meet >75% estimated needs Fu 5-7 days Plan discussed with: Patient CC Plasma Assessment Blood Product Administration S: [id number] MAGDALENE COTO MD Mar 19, 2025 10:52
[2025-03-20] VITALS (8 sets, daily range): BP systolic 127–150; BP diastolic 81–91; PULSE 66–101; RESP 18–20; TEMP 97.8–99.3; O2SAT 92–95
[2025-03-20 06:04] LABS: Hematocrit 26.7 % (41.0-53.0); Hemoglobin 8.8 g/dL (13.5-17.5); Mean Corpuscular Hemoglobin 27.8 pg (28.0-32.0); Mean Corpuscular Volume 84.6 fL (80.0-100.0); Nucleated Red Blood Cells % 0.2 %
[2025-03-20 06:24] LABS: Albumin 3.4 g/dL (3.2-4.8); Anion Gap 9 (5-15); BUN/Creatinine Ratio 5.4 (10.0-20.0); Blood Urea Nitrogen 15 mg/dL (9-23); Calcium 9.1 mg/dL (8.7-10.4); Carbon Dioxide 27 mmol/L (20-31); Chloride 102 mmol/L (98-107); Potassium 4.2 mmol/L (3.5-5.1); Sodium 138 mmol/L (136-145); Total Protein 5.8 g/dL (5.7-8.2)
[2025-03-20 06:25] LABS: Alanine Aminotransferase < 9 U/L (7-40); Alkaline Phosphatase 20 U/L (46-116); Bilirubin, Total 0.3 mg/dL (0.2-1.0); Glucose 68 mg/dL (74-106)
--- NOTE | 2025-03-20 11:11 | DVHPN2 ---
Progress Note - Dictate Date Seen: Mar 20, 2025 Medical Necessity Reason Pt with a Central, PICC or Fol: Yes The following are medically ne: Central Line, Goodman Catheter Reason for goodman catheter: Bladder Retention/Obstruc Subjective Denies subjective complaint this morning vital signs Vital Sign Date Time Temp Pulse Resp B/P (MAP) Pulse Ox O2 Delivery O2 Flow Rate FiO2 03/20/25 09:00 98.9 97 18 127/81 (96) 94 98.9 03/20/25 08:00 Room Air* 0 21 Total Intake and Output 03/19/25 03/19/25 03/20/25 15:00 23:00 07:00 Intake Total 1450 ml 800 ml Output Total 2400 ml 700 ml Balance -950 ml 100 ml medications Current Medications Medications Dose Ordered Sig/Jluia Route Start Time Stop Time Status Last Admin Dose Admin Ondansetron HCl 4 mg Q4HP PRN IV 03/05/25 21:15 Docusate Sodium 100 mg BIDPRN PRN PO 03/05/25 21:15 03/19/25 23:04 100 MG Acetaminophen 650 mg Q6HP PRN PO 03/05/25 21:15 03/11/25 02:57 650 MG Nitroglycerin 0.4 mg Q5MINP PRN SL 03/05/25 22:45 Morphine Sulfate 2 mg Q30M PRN IV 03/05/25 22:45 Cancel Tamsulosin HCl 0.4 mg QPM PO 03/07/25 18:00 03/19/25 18:16 0.4 MG Pantoprazole Sodium 40 mg DAILY@0600 PO 03/08/25 06:00 03/20/25 06:00 40 MG Methocarbamol 500 mg Q8HR PRN PO 03/11/25 11:45 03/20/25 09:28 500 MG Tolterodine Tartrate 2 mg BID PO 03/11/25 12:51 03/20/25 09:29 2 MG Oxycodone HCl 10 mg Q12HR PO 03/11/25 22:00 03/20/25 09:28 10 MG Hydromorphone HCl 2 mg Q4HPRN PRN IV 03/11/25 12:00 03/12/25 23:22 2 MG Zolpidem Tartrate 10 mg QPM PRN PO 03/11/25 20:00 03/13/25 18:34 10 MG Hydralazine HCl 10 mg Q6HP PRN IV 03/12/25 03:00 03/13/25 21:08 10 MG Cholecalciferol 4,000 unit DAILY PO 03/13/25 10:00 03/20/25 09:29 4,000 UNIT Sevelamer HCl 1,600 mg TIDWM PO 03/15/25 12:00 03/20/25 09:28 1,600 MG Iron Sucrose 110 ml @ 110 mls/hr DAILY@1200 IV 03/17/25 14:30 03/21/25 12:59 03/19/25 12:09 110 MLS/HR objective Gen: nad heent: nc/at, mmm lungs: cta anteriorly cvs: no rub abd: soft, bowel sounds audible ext: no edema skin: no rash neuro: alert and oriented laboratory and microbiology Laboratory Tests 03/20/25 04:31 Test 03/20/25 04:31 Range/Units Serum Glucose 68 L 74-106 mg/dL Assessment/Plan Problem List/Assessment/Plan Acute kidney injury superimposed Chronic Kidney Disease stage IIIB secondary obstructive etiology -> TRENT/ATN requiring HD Urinary retention Hematuria status post Vesical artery immobilization History of prostate cancer Bladder mass s/p resection Hypertension Anemia due to blood loss Metabolic acidosis hyponatremia - noted possible discharge tomorrow - we will plan for hemodialysis March 21 if patient remains in the hospital Dietary Evaluation Review Comments: Continue current plan of care Expected Outcomes/Goals: To meet >75% estimated needs Fu 5-7 days Plan discussed with: Patient CC Plasma Assessment Blood Product Administration S: [id number] MAGDALENE COTO MD Mar 20, 2025 11:11
--- NOTE | 2025-03-20 12:06 | DVHPN2 ---
Reviewed: Care Plan, H&P, Labs, Medications, Previous Orders, Radiology Changes from previous H/P or p: No Changes Eyes: No Pain, No Vision change, No Conjunctivae inflammation, No Eyelid inflammation, No Other, No Redness ENT: No Ear pain, No Ear discharge, No Nose pain, No Nose discharge, No Nose congestion, No Mouth pain, No Mouth swelling, No Throat pain, No Throat swelling, No Other Cardiovascular: No Chest Pain, No Palpitations, No Orthopnea, No Paroxysmal Noc. Dyspnea, No Edema, No Lt Headedness, No Other Respiratory: No Cough, No Dry, No Shortness of breath, No SOB with excertion, No Wheezing, No Hemoptysis, No Pleuritic Pain, No Sputum, No Other Gastrointestinal: No Nausea, No Vomiting, No Abdominal Pain, No Diarrhea, No Constipation, No Melena, No Hematochezia, No Other Genitourinary: No Dysuria, No Frequency, No Incontinence; Hematuria, Retention; No Other Musculoskeletal: No other, No neck pain, No shoulder pain, No arm pain, No back pain, No hand pain, No leg pain, No foot pain Skin: No Rash, No Lesions, No Jaundice, No Bruising, No Other Objective Vitals Vital Signs Date Time Temp Pulse Resp B/P (MAP) Pulse Ox O2 Delivery O2 Flow Rate FiO2 03/20/25 09:00 98.9 97 18 127/81 (96) 94 98.9 03/20/25 08:00 Room Air* 0 21 Intake/Output Intake and Output 03/20/25 07:00 Intake Total 2250 ml Output Total 3100 ml Balance -850 ml Intake Oral 1840 ml IV Total 110 ml Blood Product 300 ml Output Urine Total 3100 ml Medications Current Medications Medications Dose Ordered Sig/Julia Route Start Time Stop Time Status Last Admin Dose Admin Ondansetron HCl 4 mg Q4HP PRN IV 03/05/25 21:15 Docusate Sodium 100 mg BIDPRN PRN PO 03/05/25 21:15 03/19/25 23:04 100 MG Acetaminophen 650 mg Q6HP PRN PO 03/05/25 21:15 03/11/25 02:57 650 MG Nitroglycerin 0.4 mg Q5MINP PRN SL 03/05/25 22:45 Morphine Sulfate 2 mg Q30M PRN IV 03/05/25 22:45 Cancel Tamsulosin HCl 0.4 mg QPM PO 03/07/25 18:00 03/19/25 18:16 0.4 MG Pantoprazole Sodium 40 mg DAILY@0600 PO 03/08/25 06:00 03/20/25 06:00 40 MG Methocarbamol 500 mg Q8HR PRN PO 03/11/25 11:45 03/20/25 09:28 500 MG Tolterodine Tartrate 2 mg BID PO 03/11/25 12:51 03/20/25 09:29 2 MG Oxycodone HCl 10 mg Q12HR PO 03/11/25 22:00 03/20/25 09:28 10 MG Hydromorphone HCl 2 mg Q4HPRN PRN IV 03/11/25 12:00 03/12/25 23:22 2 MG Zolpidem Tartrate 10 mg QPM PRN PO 03/11/25 20:00 03/13/25 18:34 10 MG Hydralazine HCl 10 mg Q6HP PRN IV 03/12/25 03:00 03/13/25 21:08 10 MG Cholecalciferol 4,000 unit DAILY PO 03/13/25 10:00 03/20/25 09:29 4,000 UNIT Sevelamer HCl 1,600 mg TIDWM PO 03/15/25 12:00 03/20/25 09:28 1,600 MG Iron Sucrose 110 ml @ 110 mls/hr DAILY@1200 IV 03/17/25 14:30 03/21/25 12:59 03/19/25 12:09 110 MLS/HR Laboratory Results Laboratory Tests 03/20/25 04:31 Chemistry Test 03/20/25 04:31 Albumin 3.4 g/dL (3.2-4.8) Calcium Level 9.1 mg/dL (8.7-10.4) Total Protein 5.8 g/dL (5.7-8.2) LFT Test 03/20/25 04:31 Alanine Aminotransferase (ALT) < 9 U/L (7-40) Alkaline Phosphatase 20 U/L (46-116) L Aspartate Amino Transferase (AST) 19 U/L (13-40) Total Bilirubin 0.3 mg/dL (0.2-1.0) Urinalysis Test 03/05/25 20:00 03/08/25 04:33 Urine Color Light-red (Yellow) Urine Clarity Ex.turbid (Clear) Urine pH 6.5 (5.0-9.0) Urine Specific [place] 1.011 (1.001-1.035) Urine Protein 2+ (Negative) H Urine Ketones Negative (Negative) Urine Blood 3+ /uL (Negative) H Urine Nitrite Negative (Negative) Urine Bilirubin Negative (Negative) Urine Urobilinogen Normal mg/dL (Negative) Urine Leukocyte Esterase 2+ /uL (Negative) Urine RBC 6312 /hpf (0 - 3) Urine Microscopic WBC 130 /HPF (0-3) H Urine Squamous Epithelial Cells None seen /hpf (<5) Urine Bacteria None seen /hpf (None Seen) Urine Glucose Normal mg/dL (Normal) Urine Creatinine 69.39 mg/dL (30.0-125.0) Urine Protein/Creatinine Ratio 3.98 Urine Sodium 98 mmol/L (40-220) Urine Total Protein 276.1 mg/dL (1-14) H Microbiology Microbiology Date/Time Source Procedure Growth Status 03/08/25 04:33 Voided Urine Urine Culture - Final Complete 03/06/25 15:50 Blood Blood Culture - Final NO GROWTH AFTER 5 DAYS OF INCUBATION. Complete Labs and/or images reviewed: Labs reviewed by me, Image(s) reviewed by me Assessment/Plan Assessment/Plan Acute symptomatic anemia hemoglobin 6.5, improved to 8.7 after 2 unit RBC transfusion down to 7.2 will transfuse one more unit today Acute urinary retention : Bladder tumor/mass Status post transurethral resection of the bladder tumor by Dr Larson on 03-09-25 Embolization of the left vesical artery by radiologist ordered by Dr. Larson, as complete hemostasis could not be secured during the TURBT procedure, status post embolization by the Radiologist Dr Quarles Patient getting three-way continuous bladder irrigation Acute bilateral hydronephrosis History of prostate cancer status post radical prostatectomy 2017 Hematuria Suspect contrast induced nephropathy, urology advised definitive oncologic management i.e. cystectomy or chemo radiation evaluation and as outpatient Acute kidney injury requiring dialysis, receiving hemodialysis and improving, awaiting outpatient chair time. Acute generalized weakness Awaiting chair time s Plan discussed with: Patient Date of Service: Mar 20, 2025 Billing Provider: JULES MCKEON MD Common Visit Codes: [id number] INP/OBS CARE(HIGH) JULES MCKEON MD Mar 20, 2025 12:06
[2025-03-21 05:00] VITALS: BP 133/82; PULSE 86; RESP 18; TEMP 97.7; O2SAT 93
[2025-03-21 06:54] LABS: Hematocrit 28.6 % (41.0-53.0); Hemoglobin 9.5 g/dL (13.5-17.5); Mean Corpuscular Hemoglobin 28.3 pg (28.0-32.0); Mean Corpuscular Volume 85.4 fL (80.0-100.0); Nucleated Red Blood Cells % 0.0 %
[2025-03-21 07:23] LABS: Albumin 3.5 g/dL (3.2-4.8); Anion Gap 11 (5-15); BUN/Creatinine Ratio 6.6 (10.0-20.0); Bilirubin, Total 0.4 mg/dL (0.2-1.0); Blood Urea Nitrogen 13 mg/dL (9-23); Calcium 9.1 mg/dL (8.7-10.4); Carbon Dioxide 24 mmol/L (20-31); Chloride 101 mmol/L (98-107); Potassium 4.1 mmol/L (3.5-5.1); Total Protein 6.1 g/dL (5.7-8.2)
[2025-03-21 07:24] LABS: Alanine Aminotransferase < 9 U/L (7-40); Alkaline Phosphatase 22 U/L (46-116); Glucose 72 mg/dL (74-106); Sodium 136 mmol/L (136-145)
[2025-03-21 08:00] VITALS: PULSE 90
[2025-03-21 08:30] VITALS: BP 139/83; PULSE 94; RESP 14; TEMP 99; O2SAT 95
--- NOTE | 2025-03-21 11:19 | DVHPN2 ---
Reviewed: Care Plan, H&P, Labs, Medications, Previous Orders, Radiology Changes from previous H/P or p: No Changes Eyes: No Pain, No Vision change, No Conjunctivae inflammation, No Eyelid inflammation, No Other, No Redness ENT: No Ear pain, No Ear discharge, No Nose pain, No Nose discharge, No Nose congestion, No Mouth pain, No Mouth swelling, No Throat pain, No Throat swelling, No Other Cardiovascular: No Chest Pain, No Palpitations, No Orthopnea, No Paroxysmal Noc. Dyspnea, No Edema, No Lt Headedness, No Other Respiratory: No Cough, No Dry, No Shortness of breath, No SOB with excertion, No Wheezing, No Hemoptysis, No Pleuritic Pain, No Sputum, No Other Gastrointestinal: No Nausea, No Vomiting, No Abdominal Pain, No Diarrhea, No Constipation, No Melena, No Hematochezia, No Other Genitourinary: No Dysuria, No Frequency, No Incontinence; Hematuria, Retention; No Other Musculoskeletal: No other, No neck pain, No shoulder pain, No arm pain, No back pain, No hand pain, No leg pain, No foot pain Skin: No Rash, No Lesions, No Jaundice, No Bruising, No Other Objective Vitals Vital Signs Date Time Temp Pulse Resp B/P (MAP) Pulse Ox O2 Delivery O2 Flow Rate FiO2 03/21/25 08:30 99.0 94 14 139/83 (101) 95 99.0 03/21/25 08:10 Room Air* 0 21 Intake/Output Intake and Output 03/21/25 07:00 Intake Total 1850 ml Output Total 2160 ml Balance -310 ml Intake Oral 1740 ml IV Total 110 ml Output Urine Total 2160 ml Medications Current Medications Medications Dose Ordered Sig/Julia Route Start Time Stop Time Status Last Admin Dose Admin Ondansetron HCl 4 mg Q4HP PRN IV 03/05/25 21:15 Docusate Sodium 100 mg BIDPRN PRN PO 03/05/25 21:15 03/19/25 23:04 100 MG Acetaminophen 650 mg Q6HP PRN PO 03/05/25 21:15 03/11/25 02:57 650 MG Nitroglycerin 0.4 mg Q5MINP PRN SL 03/05/25 22:45 Morphine Sulfate 2 mg Q30M PRN IV 03/05/25 22:45 Cancel Tamsulosin HCl 0.4 mg QPM PO 03/07/25 18:00 03/20/25 17:40 0.4 MG Pantoprazole Sodium 40 mg DAILY@0600 PO 03/08/25 06:00 03/21/25 05:30 40 MG Methocarbamol 500 mg Q8HR PRN PO 03/11/25 11:45 03/20/25 20:10 500 MG Tolterodine Tartrate 2 mg BID PO 03/11/25 12:51 03/21/25 08:45 2 MG Zolpidem Tartrate 10 mg QPM PRN PO 03/11/25 20:00 03/13/25 18:34 10 MG Hydralazine HCl 10 mg Q6HP PRN IV 03/12/25 03:00 03/13/25 21:08 10 MG Cholecalciferol 4,000 unit DAILY PO 03/13/25 10:00 03/21/25 08:45 4,000 UNIT Sevelamer HCl 1,600 mg TIDWM PO 03/15/25 12:00 03/21/25 08:44 1,600 MG Iron Sucrose 110 ml @ 110 mls/hr DAILY@1200 IV 03/17/25 14:30 03/21/25 12:59 03/20/25 11:59 110 MLS/HR Laboratory Results Laboratory Tests 03/21/25 06:00 Chemistry Test 03/21/25 06:00 Albumin 3.5 g/dL (3.2-4.8) Calcium Level 9.1 mg/dL (8.7-10.4) Total Protein 6.1 g/dL (5.7-8.2) LFT Test 03/21/25 06:00 Alanine Aminotransferase (ALT) < 9 U/L (7-40) Alkaline Phosphatase 22 U/L (46-116) L Aspartate Amino Transferase (AST) 22 U/L (13-40) Total Bilirubin 0.4 mg/dL (0.2-1.0) Urinalysis Test 03/05/25 20:00 03/08/25 04:33 Urine Color Light-red (Yellow) Urine Clarity Ex.turbid (Clear) Urine pH 6.5 (5.0-9.0) Urine Specific [place] 1.011 (1.001-1.035) Urine Protein 2+ (Negative) H Urine Ketones Negative (Negative) Urine Blood 3+ /uL (Negative) H Urine Nitrite Negative (Negative) Urine Bilirubin Negative (Negative) Urine Urobilinogen Normal mg/dL (Negative) Urine Leukocyte Esterase 2+ /uL (Negative) Urine RBC 6312 /hpf (0 - 3) Urine Microscopic WBC 130 /HPF (0-3) H Urine Squamous Epithelial Cells None seen /hpf (<5) Urine Bacteria None seen /hpf (None Seen) Urine Glucose Normal mg/dL (Normal) Urine Creatinine 69.39 mg/dL (30.0-125.0) Urine Protein/Creatinine Ratio 3.98 Urine Sodium 98 mmol/L (40-220) Urine Total Protein 276.1 mg/dL (1-14) H Microbiology Microbiology Date/Time Source Procedure Growth Status 03/08/25 04:33 Voided Urine Urine Culture - Final Complete 03/06/25 15:50 Blood Blood Culture - Final NO GROWTH AFTER 5 DAYS OF INCUBATION. Complete Labs and/or images reviewed: Labs reviewed by me, Image(s) reviewed by me Assessment/Plan Assessment/Plan Acute symptomatic anemia hemoglobin 6.5, improved to 8.7 after 2 unit RBC transfusion down to 7.2 will transfuse one more unit today Acute urinary retention : Bladder tumor/mass Status post transurethral resection of the bladder tumor by Dr Larson on 03-09-25 Embolization of the left vesical artery by radiologist ordered by Dr. Larson, as complete hemostasis could not be secured during the TURBT procedure, status post embolization by the Radiologist Dr Quarles Patient getting three-way continuous bladder irrigation Acute bilateral hydronephrosis History of prostate cancer status post radical prostatectomy 2017 Hematuria Suspect contrast induced nephropathy, urology advised definitive oncologic management i.e. cystectomy or chemo radiation evaluation and as outpatient Acute kidney injury requiring dialysis, receiving hemodialysis and improving, awaiting outpatient chair time. Acute generalized weakness Awaiting chair time s Plan discussed with: Patient Date of Service: Mar 21, 2025 Billing Provider: JULES MCKEON MD Common Visit Codes: [id number] INP/OBS CARE(HIGH) JULES MCKEON MD Mar 21, 2025 11:19
--- NOTE | 2025-03-21 15:32 | DVHPN2 ---
Progress Note Date Seen: Mar 21, 2025 Medical Necessity Reason Pt with a Central, PICC or Fol: Yes The following are medically ne: Central Line, Goodman Catheter Reason for goodman catheter: Bladder Retention/Obstruc Subjective Patient reports: No new complaints, Feels better Review of Systems: Deferred Objective vital signs Vital Sign Date Time Temp Pulse Resp B/P (MAP) Pulse Ox O2 Delivery O2 Flow Rate FiO2 03/21/25 08:30 99.0 94 14 139/83 (101) 95 99.0 03/21/25 08:10 Room Air* 0 21 Total Intake and Output 03/20/25 03/20/25 03/21/25 15:00 23:00 07:00 Intake Total 1150 ml 700 ml Output Total 1140 ml 1020 ml Balance 10 ml -320 ml medications Current Medications Medications Dose Ordered Sig/Julia Route Start Time Stop Time Status Last Admin Dose Admin Ondansetron HCl 4 mg Q4HP PRN IV 03/05/25 21:15 Docusate Sodium 100 mg BIDPRN PRN PO 03/05/25 21:15 03/19/25 23:04 100 MG Acetaminophen 650 mg Q6HP PRN PO 03/05/25 21:15 03/11/25 02:57 650 MG Nitroglycerin 0.4 mg Q5MINP PRN SL 03/05/25 22:45 Morphine Sulfate 2 mg Q30M PRN IV 03/05/25 22:45 Cancel Tamsulosin HCl 0.4 mg QPM PO 03/07/25 18:00 03/20/25 17:40 0.4 MG Pantoprazole Sodium 40 mg DAILY@0600 PO 03/08/25 06:00 03/21/25 05:30 40 MG Methocarbamol 500 mg Q8HR PRN PO 03/11/25 11:45 03/20/25 20:10 500 MG Tolterodine Tartrate 2 mg BID PO 03/11/25 12:51 03/21/25 08:45 2 MG Zolpidem Tartrate 10 mg QPM PRN PO 03/11/25 20:00 03/13/25 18:34 10 MG Hydralazine HCl 10 mg Q6HP PRN IV 03/12/25 03:00 03/13/25 21:08 10 MG Cholecalciferol 4,000 unit DAILY PO 03/13/25 10:00 7/7/25 08:45 4,000 UNIT Sevelamer HCl 1,600 mg TIDWM PO 03/15/25 12:00 03/21/25 11:59 1,600 MG Examination: GENERAL:Normal, HEENT:Normal, NECK:Normal, LUNGS:Normal, CVS:Normal, ABDOMEN:Normal, MSK:Normal, SKIN:Normal, NEURO:Normal, :Normal laboratory and microbiology Laboratory Tests 03/21/25 06:00 Test 03/21/25 06:00 Range/Units Serum Glucose 72 L 74-106 mg/dL Microbiology Date/Time Source Procedure Growth Status 03/08/25 04:33 Voided Urine Urine Culture - Final Complete 03/06/25 15:50 Blood Blood Culture - Final NO GROWTH AFTER 5 DAYS OF INCUBATION. Complete Problem List/Assessment/Plan Problem List/Assessment/Plan Acute kidney injury superimposed Chronic Kidney Disease stage IIIB secondary obstructive etiology + TRENT/ATN requiring HD Urinary retention Hematuria status post Vesical artery immobilization History of prostate cancer Bladder mass s/p resection ---high-grade malignancy Hypertension Anemia due to blood loss Metabolic acidosis hyponatremia recs Renal function improving off dialysis last dialysis was March 18 If renal function is stable or improving by tomorrow we will stop dialysis Plan discussed with: Patient Dietary Evaluation Review Comments: Continue current plan of care Expected Outcomes/Goals: To meet >75% estimated needs Fu 5-7 days CC Plasma Assessment Blood Product Administration S: [id number] LINNETTE MCLAUGHLIN MD Mar 21, 2025 15:32
[2025-03-21 16:39] VITALS: BP 148/67; PULSE 79; RESP 14; TEMP 98.7; O2SAT 96
[2025-03-21 20:00] VITALS: PULSE 89; PULSE 94; O2SAT 94
[2025-03-21 21:00] VITALS: BP 139/88; PULSE 72; PULSE 89; RESP 18; RESP 19; TEMP 98.3; O2SAT 94; O2SAT 97
[2025-03-22 05:00] VITALS: BP 143/88; PULSE 88; RESP 18; TEMP 97.8; O2SAT 96
[2025-03-22 06:11] LABS: Hematocrit 29.1 % (41.0-53.0); Hemoglobin 9.7 g/dL (13.5-17.5); Mean Corpuscular Hemoglobin 28.3 pg (28.0-32.0); Mean Corpuscular Volume 85.4 fL (80.0-100.0); Nucleated Red Blood Cells % 0.0 %
[2025-03-22 06:31] LABS: Anion Gap 10 (5-15); BUN/Creatinine Ratio 8.1 (10.0-20.0); Blood Urea Nitrogen 14 mg/dL (9-23); Carbon Dioxide 25 mmol/L (20-31); Chloride 101 mmol/L (98-107); Glucose 75 mg/dL (74-106); Potassium 3.8 mmol/L (3.5-5.1); Total Protein 6.2 g/dL (5.7-8.2)
[2025-03-22 06:32] LABS: Alanine Aminotransferase < 9 U/L (7-40); Albumin 3.6 g/dL (3.2-4.8); Alkaline Phosphatase 24 U/L (46-116); Bilirubin, Total 0.4 mg/dL (0.2-1.0); Calcium 8.5 mg/dL (8.7-10.4); Sodium 136 mmol/L (136-145)
[2025-03-22 08:00] VITALS: PULSE 79; PULSE 82; RESP 16; O2SAT 95
[2025-03-22 08:30] VITALS: BP 123/82; PULSE 85; RESP 16; TEMP 98.4; O2SAT 95
--- NOTE | 2025-03-22 12:20 | DVHPN2 ---
Reviewed: Care Plan, H&P, Labs, Medications, Previous Orders, Radiology Changes from previous H/P or p: No Changes Eyes: No Pain, No Vision change, No Conjunctivae inflammation, No Eyelid inflammation, No Other, No Redness ENT: No Ear pain, No Ear discharge, No Nose pain, No Nose discharge, No Nose congestion, No Mouth pain, No Mouth swelling, No Throat pain, No Throat swelling, No Other Cardiovascular: No Chest Pain, No Palpitations, No Orthopnea, No Paroxysmal Noc. Dyspnea, No Edema, No Lt Headedness, No Other Respiratory: No Cough, No Dry, No Shortness of breath, No SOB with excertion, No Wheezing, No Hemoptysis, No Pleuritic Pain, No Sputum, No Other Gastrointestinal: No Nausea, No Vomiting, No Abdominal Pain, No Diarrhea, No Constipation, No Melena, No Hematochezia, No Other Genitourinary: No Dysuria, No Frequency, No Incontinence; Hematuria, Retention; No Other Musculoskeletal: No other, No neck pain, No shoulder pain, No arm pain, No back pain, No hand pain, No leg pain, No foot pain Skin: No Rash, No Lesions, No Jaundice, No Bruising, No Other Objective Vitals Vital Signs Date Time Temp Pulse Resp B/P (MAP) Pulse Ox O2 Delivery O2 Flow Rate FiO2 03/22/25 08:30 98.4 85 16 123/82 (96) 95 98.4 03/22/25 08:00 Room Air* 0 21 Intake/Output Intake and Output 03/22/25 07:00 Intake Total 860 ml Output Total 1175 ml Balance -315 ml Intake Oral 750 ml IV Total 110 ml Output Urine Total 1175 ml # Bowel Movements 3 Medications Current Medications Medications Dose Ordered Sig/Julia Route Start Time Stop Time Status Last Admin Dose Admin Ondansetron HCl 4 mg Q4HP PRN IV 03/05/25 21:15 Docusate Sodium 100 mg BIDPRN PRN PO 03/05/25 21:15 03/19/25 23:04 100 MG Acetaminophen 650 mg Q6HP PRN PO 03/05/25 21:15 03/11/25 02:57 650 MG Nitroglycerin 0.4 mg Q5MINP PRN SL 03/05/25 22:45 Morphine Sulfate 2 mg Q30M PRN IV 03/05/25 22:45 Cancel Tamsulosin HCl 0.4 mg QPM PO 03/07/25 18:00 03/21/25 17:30 0.4 MG Pantoprazole Sodium 40 mg DAILY@0600 PO 03/08/25 06:00 03/22/25 05:32 40 MG Methocarbamol 500 mg Q8HR PRN PO 03/11/25 11:45 03/21/25 21:30 500 MG Tolterodine Tartrate 2 mg BID PO 03/11/25 12:51 03/22/25 08:34 2 MG Zolpidem Tartrate 10 mg QPM PRN PO 03/11/25 20:00 03/13/25 18:34 10 MG Hydralazine HCl 10 mg Q6HP PRN IV 03/12/25 03:00 03/13/25 21:08 10 MG Cholecalciferol 4,000 unit DAILY PO 03/13/25 10:00 03/22/25 08:34 4,000 UNIT Sevelamer HCl 1,600 mg TIDWM PO 03/15/25 12:00 03/22/25 08:34 1,600 MG Laboratory Results Laboratory Tests 03/22/25 05:10 Chemistry Test 03/22/25 05:10 Albumin 3.6 g/dL (3.2-4.8) Calcium Level 8.5 mg/dL (8.7-10.4) L Total Protein 6.2 g/dL (5.7-8.2) LFT Test 03/22/25 05:10 Alanine Aminotransferase (ALT) < 9 U/L (7-40) Alkaline Phosphatase 24 U/L (46-116) L Aspartate Amino Transferase (AST) 22 U/L (13-40) Total Bilirubin 0.4 mg/dL (0.2-1.0) Urinalysis Test 03/05/25 20:00 03/08/25 04:33 Urine Color Light-red (Yellow) Urine Clarity Ex.turbid (Clear) Urine pH 6.5 (5.0-9.0) Urine Specific [place] 1.011 (1.001-1.035) Urine Protein 2+ (Negative) H Urine Ketones Negative (Negative) Urine Blood 3+ /uL (Negative) H Urine Nitrite Negative (Negative) Urine Bilirubin Negative (Negative) Urine Urobilinogen Normal mg/dL (Negative) Urine Leukocyte Esterase 2+ /uL (Negative) Urine RBC 6312 /hpf (0 - 3) Urine Microscopic WBC 130 /HPF (0-3) H Urine Squamous Epithelial Cells None seen /hpf (<5) Urine Bacteria None seen /hpf (None Seen) Urine Glucose Normal mg/dL (Normal) Urine Creatinine 69.39 mg/dL (30.0-125.0) Urine Protein/Creatinine Ratio 3.98 Urine Sodium 98 mmol/L (40-220) Urine Total Protein 276.1 mg/dL (1-14) H Microbiology Microbiology Date/Time Source Procedure Growth Status 03/08/25 04:33 Voided Urine Urine Culture - Final Complete 03/06/25 15:50 Blood Blood Culture - Final NO GROWTH AFTER 5 DAYS OF INCUBATION. Complete Labs and/or images reviewed: Labs reviewed by me, Image(s) reviewed by me Assessment/Plan Assessment/Plan Acute symptomatic anemia hemoglobin 6.5, improved to 8.7 after 2 unit RBC transfusion Acute urinary retention : Bladder tumor/mass Status post transurethral resection of the bladder tumor by Dr Larson on 03-09-25 Embolization of the left vesical artery by radiologist ordered by Dr. Larson, as complete hemostasis could not be secured during the TURBT procedure, status post embolization by the Radiologist Dr Quarles Acute bilateral hydronephrosis History of prostate cancer status post radical prostatectomy 2017 Hematuria Suspect contrast induced nephropathy, urology advised definitive oncologic management i.e. cystectomy or chemo radiation evaluation and as outpatient Acute kidney injury requiring dialysis, receiving hemodialysis and improving, awaiting outpatient chair time. Dr Lawler advised me that the patient does not need dialysis any more Plan discussed with: Patient Date of Service: Mar 22, 2025 Billing Provider: JULES MCKEON MD Common Visit Codes: [id number] INP/OBS CARE(HIGH) JULES MCKEON MD Mar 22, 2025 12:20
--- NOTE | 2025-03-22 12:26 | DVHDS2 ---
Discharge Summary Date of Admission Mar 05, 2025 at 22:43 Date of Discharge: Mar 22, 2025 Admitting Diagnosis Generalized weakness and hematuria Wounds: TURBT Labs/Diagnostic Data: Laboratory Results Test 03/22/25 05:10 03/17/25 14:22 03/15/25 07:24 03/14/25 05:17 White Blood Count 15.9 10^3/uL (4.4-10.8) Red Blood Count 3.41 10^6/uL (4.5-5.90) Hemoglobin 9.7 g/dL (13.5-17.5) Hematocrit 29.1 % (41.0-53.0) Mean Corpuscular Volume 85.4 fL (80.0-100.0) Mean Corpuscular Hemoglobin 28.3 pg (28.0-32.0) Mean Corpuscular Hemoglobin Concent 33.2 g/dL (32.0-36.0) Red Cell Distribution Width 19.6 % (11.8-14.3) Platelet Count 449 10^3/uL (140-450) Mean Platelet Volume 7.4 fL (6.9-10.8) Neutrophils (%) (Auto) 85.3 % (37.0-80.0) Lymphocytes (%) (Auto) 3.8 % (10.0-50.0) Monocytes (%) (Auto) 7.9 % (0.0-12.0) Eosinophils (%) (Auto) 2.7 % (0.0-7.0) Basophils (%) (Auto) 0.3 % (0.0-2.0) Neutrophils # (Auto) 13.6 10 ^3/uL (1.6-8.6) Lymphocytes # (Auto) 0.6 10 ^3/uL (0.4-5.4) Monocytes # (Auto) 1.3 10 ^3/uL (0-1.3) Eosinophils # (Auto) 0.4 10 ^3/uL (0-0.8) Basophils # (Auto) 0.1 10 ^3/uL (0-0.2) Nucleated Red Blood Cells 0.0 % Sodium Level 136 mmol/L (136-145) Potassium Level 3.8 mmol/L (3.5-5.1) Chloride Level 101 mmol/L (98-107) Carbon Dioxide Level 25 mmol/L (20-31) Anion Gap 10 (5-15) Blood Urea Nitrogen 14 mg/dL (9-23) Creatinine 1.73 mg/dL (0.700-1.30) Glomerular Filtration Rate Calc 40 mL/min (>90) BUN/Creatinine Ratio 8.1 (10.0-20.0) Serum Glucose 75 mg/dL (74-106) Calcium Level 8.5 mg/dL (8.7-10.4) Total Bilirubin 0.4 mg/dL (0.2-1.0) Aspartate Amino Transferase (AST) 22 U/L (13-40) Alanine Aminotransferase (ALT) < 9 U/L (7-40) Alkaline Phosphatase 24 U/L (46-116) Total Protein 6.2 g/dL (5.7-8.2) Albumin 3.6 g/dL (3.2-4.8) Ferritin 32.0 ng/mL (22-322) Phosphorus Level 7.8 mg/dL (2.4-5.1) Iron Level 19 ug/dL (65-175) Total Iron Binding Capacity 285 ug/dL (250-425) Percent Iron Saturation 6.7 % (20-55) Hepatitis B Surface Antigen Negative (Negative) Test 03/13/25 04:42 03/08/25 19:17 03/08/25 04:33 03/07/25 20:22 Serum Immunoglobulin G 1013 mg/dL (603-1613) Magnesium Level 2.1 mg/dL (1.6-2.6) Globulin (PEP) 3.4 g/dL (2.2-3.9) Albumin/Globulin Ratio 0.7 (0.7-1.7) Ajoon-2-Plcdodcnr 0.4 g/dL (0.0-0.4) Kuvnr-9-Vsiojhilj 1.0 g/dL (0.4-1.0) Beta Globulins 1.0 g/dL (0.7-1.3) Gamma Globulins 1.0 g/dL (0.4-1.8) Protein Electrophoresis M-Keven Not observed g/dL (Not Protein Electrophoresis Note Comment (.) Immunoglobulin A 179 mg/dL (61-437) Immunoglobulin M 127 mg/dL (15-143) Serum Immunofixation Comment (.) Free [place] Light Chains, Quant 45.3 mg/L (3.3-19.4) Free [place]/Lambda Light Chain Ratio 1.70 (0.26-1.65) Differential Total Cells Counted 100.0 (100) Neutrophils % (Manual) 90 (37.0-80.0) Band Neutrophils % (Manual) 7 Lymphocytes % (Manual) 2 (10.0-50.0) Monocytes % (Manual) 1 (0-12) Eosinophils % (Manual) 0 (0-7) Basophils % (Manual) 0 (0.0-2.0) Metamyelocytes % (manual) 0 Myelocytes % (Manual) 0 Promyelocytes % (Manual) 0 Blast Cells % (Manual) 0 Reactive Lymphocytes 0 Platelet Estimate Adequate Large Platelets Few Urine Creatinine 69.39 mg/dL (30.0-125.0) Urine Protein/Creatinine Ratio 3.98 Urine Sodium 98 mmol/L (40-220) Urine Total Protein 276.1 mg/dL (1-14) Stool Occult Blood Negative (Negative) Stool Occult Blood Sample #3 (Negative) Test 03/06/25 15:45 03/06/25 07:02 03/06/25 04:08 03/05/25 20:00 Free Prostate Specific Antigen 0.20 ng/mL (N/A) Percent Free Prostate Specific Ag 9.5 % (.) Prostate Specific Antigen Total 2.1 ng/mL (0.0-4.0) Vitamin D 25-Hydroxy 22.0 ng/mL (30.0-100) Parathyroid Hormone (Intact) 109.4 pg/mL (18.4-80.1) SARS-CoV-2 Antigen (Rapid) Negative (NEGATIVE) Urine Color Light-red (Yellow) Urine Clarity Ex.turbid (Clear) Urine pH 6.5 (5.0-9.0) Urine Specific [place] 1.011 (1.001-1.035) Urine Protein 2+ (Negative) Urine Ketones Negative (Negative) Urine Blood 3+ /uL (Negative) Urine Nitrite Negative (Negative) Urine Bilirubin Negative (Negative) Urine Urobilinogen Normal mg/dL (Negative) Urine Leukocyte Esterase 2+ /uL (Negative) Urine RBC 6312 /hpf (0 - 3) Urine Microscopic WBC 130 /HPF (0-3) Urine Squamous Epithelial Cells None seen /hpf (<5) Urine Bacteria None seen /hpf (None Seen) Urine Glucose Normal mg/dL (Normal) Test 03/05/25 18:30 Prothrombin Time 10.9 sec (9.3-11.8) Prothrombin Time INR 1.03 (0.9-1.15) Activated Partial Thromboplast Time 26.3 SEC (24.5-34.5) Lactic Acid Level 0.7 mmol/L (0.4-2.0) Other Laboratory Tests 03/22/25 05:10 Brief Hx & Hospital Course: 72-year-old male with a history of prostate cancer status post radical prostatectomy in 2016 came for hematuria in acute urinary retention had three- way bladder irrigation by Urology Dr. Larson. Underwent TURBT subsequently underwent vesical arterial embolization by the radiologist. Hemoglobin 6.5 received 2 units RBC transfusion which has improved. Patient developed acute kidney injury postop and received hemodialysis cath and dialysis by senior field service engineer at the time of discharge kidney function almost returned to normal and senior field service engineer Dr Lawler advised that the patient does not need any more dialysis and the patient could be discharged home. Patient feels better and wants to go home discharged. Consults/Reason for consult Neurology Dr. Larson Radiology Nephrology GI Operations or Procedures RBC transfusion Condition at Discharge: Fair Final Diagnosis/Problems List Acute symptomatic anemia hemoglobin 6.5, improved to 8.7 after 2 unit RBC transfusion Acute urinary retention : Bladder tumor/mass Status post transurethral resection of the bladder tumor by Dr Larson on 03-09-25 Embolization of the left vesical artery by radiologist ordered by Dr. Larson, as complete hemostasis could not be secured during the TURBT procedure, status post embolization by the Radiologist Dr Quarles Acute bilateral hydronephrosis History of prostate cancer status post radical prostatectomy 2016 Hematuria Suspect contrast induced nephropathy, urology advised definitive oncologic management i.e. cystectomy or chemo radiation evaluation and as outpatient Acute kidney injury requiring dialysis, receiving hemodialysis and improving, awaiting outpatient chair time. Dr Lawler advised me that the patient does not need dialysis any more Discharge Disposition: Home Discharge Instruct/Medications Diet: Renal Activity: Light activity Follow Up/Referral: Follow up with your primary Dr in one week Follow up with the senior field service engineer Dr Lawler in 3 days Follow up with GI Dr. Linnea Mcintyre in two weeks Follow up with the Urology Dr. Larson in one week Medications: Transmitted to pharmacy No Active Prescriptions or Reported Meds Discharge Statement: "Patient was advised to return to the ER or call 911 if any headaches, dizziness, shortness of breath, chest pain, abdominal pain, bleeding, fevers, or worsening of medical condition. Patient was counseled about treatment plan, medications, possible side effects, patientverbalized understanding. All questions were answered to the best of my ability. This discharge took greater then 30 minutes in planning, reviewing documentation, counseling the patient, and discussing with other team members." ASSESSMENT ASSESSMENT Hospital Course Improved Assessment Acute symptomatic anemia hemoglobin 6.5, improved to 8.7 after 2 unit RBC transfusion Acute urinary retention : Bladder tumor/mass Status post transurethral resection of the bladder tumor by Dr Larson on 03-09-25 Embolization of the left vesical artery by radiologist ordered by Dr. Larosn, as complete hemostasis could not be secured during the TURBT procedure, status post embolization by the Radiologist Dr Quarles Acute bilateral hydronephrosis History of prostate cancer status post radical prostatectomy 2016 Hematuria Suspect contrast induced nephropathy, urology advised definitive oncologic management i.e. cystectomy or chemo radiation evaluation and as outpatient Acute kidney injury requiring dialysis, receiving hemodialysis and improving, awaiting outpatient chair time. Dr Lawler advised me that the patient does not need dialysis any more Date of Service: Mar 22, 2025 Billing Provider: JULES MCKEON MD Common Visit Codes: 89721-RRX/OBS DISCH DAY >30min JULES MCKEON MD Mar 22, 2025 12:26
[2025-03-22] MEDS ORDERED: CHOL500046 PO (12:28)
[2025-03-22] MEDS ORDERED: SEVE800T7 PO (12:28)
[2025-03-22] MEDS ORDERED: TOLT2CAP PO (12:28)
[2025-03-22] MEDS ORDERED: FERR-7 PO (12:29)
[2025-03-22 12:35] VITALS: BP 129/72; PULSE 83; RESP 16; TEMP 98.2; O2SAT 96
[2025-03-22 13:07] VITALS: BP 129/72; PULSE 83; RESP 16; TEMP 98.2; O2SAT 96
--- NOTE | 2025-03-22 19:13 | DVHPN2 ---
Progress Note Date Seen: Mar 22, 2025 Medical Necessity Reason Pt with a Central, PICC or Fol: Yes The following are medically ne: Goodman Catheter Reason for goodman catheter: Bladder Retention/Obstruc Subjective Patient reports: No new complaints Review of Systems: HEENT:Normal, CVS:Normal, RESPIRATORY:Normal, GI:Normal, :Normal, MSK:Normal, NEURO:Normal Objective vital signs Vital Sign Date Time Temp Pulse Resp B/P (MAP) Pulse Ox O2 Delivery O2 Flow Rate FiO2 03/22/25 13:07 98.2 83 16 96 03/22/25 12:35 129/72 (91) 03/22/25 08:00 Room Air* 0 21 Total Intake and Output 03/21/25 03/21/25 03/22/25 14:59 22:59 06:59 Intake Total 110 ml 750 ml Output Total 575 ml 600 ml Balance -465 ml 150 ml medications Current Medications Medications Dose Ordered Sig/Julia Route Start Time Stop Time Status Last Admin Dose Admin Morphine Sulfate 2 mg Q30M PRN IV 03/05/25 22:45 Cancel Examination: GENERAL:Normal, HEENT:Normal, NECK:Normal, LUNGS:Normal, CVS:Normal, ABDOMEN:Normal, MSK:Normal, SKIN:Normal, NEURO:Normal, :Abnormal laboratory and microbiology Laboratory Tests 03/22/25 05:10 Test 03/22/25 05:10 Range/Units Serum Glucose 75 74-106 mg/dL Microbiology Date/Time Source Procedure Growth Status 03/08/25 04:33 Voided Urine Urine Culture - Final Complete 03/06/25 15:50 Blood Blood Culture - Final NO GROWTH AFTER 5 DAYS OF INCUBATION. Complete Problem List/Assessment/Plan Problem List/Assessment/Plan Acute kidney injury superimposed Chronic Kidney Disease stage IIIB secondary obstructive etiology + TRENT/ATN requiring HD Urinary retention Hematuria status post Vesical artery immobilization History of prostate cancer Bladder mass s/p resection ---high-grade malignancy Hypertension Anemia due to blood loss Metabolic acidosis hyponatremia recs Renal function improving off dialysis last dialysis was March 18 , today gfr 40, cr 1.7 without HD for 4 days no need for HD remove HD catheter pt given my office info to see me in office in 1 week -he agreed Plan discussed with: Patient My Orders My Orders Orders - LINNETTE MCLAUGHLIN MD Procedure Category Date Status Time * Radiologist Consult CONS 03/22/25 Transmitted 09:11 Dietary Evaluation Review Comments: Continue current plan of care Expected Outcomes/Goals: To meet >75% estimated needs Fu 5-7 days CC Plasma Assessment Blood Product Administration S: [id number] LINNETTE MCLAUGHLIN MD Mar 22, 2025 19:13
== END 2025-03-22 14:14 | disposition home or self-care (01) | DRG 668 ==
LOC: ER 16:55 → OVERFLOW 22:43 → TELE-WESTW 03-06 03:04
PROVIDERS: ADMIT Family Medicine; ATTEND Family Medicine
PROC: 30233N1 Transfusion of Nonautologous Red Blood Cells into Peripheral Vein, Percutaneous Approach (ICD-10-PCS; principal; 2025-03-05)
PROC: 0TCC8ZZ Extirpation of Matter from Bladder Neck, Via Natural or Artificial Opening Endoscopic (ICD-10-PCS; 2025-03-08)
PROC: 0TBB8ZZ Excision of Bladder, Via Natural or Artificial Opening Endoscopic (ICD-10-PCS; 2025-03-08 14:44)
PROC: B41G1ZZ Fluoroscopy of Left Lower Extremity Arteries using Low Osmolar Contrast (ICD-10-PCS; 2025-03-09)
PROC: 04LF3DZ Occlusion of Left Internal Iliac Artery with Intraluminal Device, Percutaneous Approach (ICD-10-PCS; 2025-03-09)
PROC: 0JH63XZ Insertion of Tunneled Vascular Access Device into Chest Subcutaneous Tissue and Fascia, Percutaneous Approach (ICD-10-PCS; 2025-03-15)
PROC: 02H633Z Insertion of Infusion Device into Right Atrium, Percutaneous Approach (ICD-10-PCS; 2025-03-15)
PROC: B5181ZA Fluoroscopy of Superior Vena Cava using Low Osmolar Contrast, Guidance (ICD-10-PCS; 2025-03-15)
PROC: B548ZZA Ultrasonography of Superior Vena Cava, Guidance (ICD-10-PCS; 2025-03-15)
PROC: 5A1D70Z Performance of Urinary Filtration, Intermittent, Less than 6 Hours Per Day (ICD-10-PCS; 2025-03-15)
PROC: 5A1D70Z Performance of Urinary Filtration, Intermittent, Less than 6 Hours Per Day (ICD-10-PCS; 2025-03-16)
PROC: 5A1D70Z Performance of Urinary Filtration, Intermittent, Less than 6 Hours Per Day (ICD-10-PCS; 2025-03-18)
DX: D49.4 Neoplasm of unspecified behavior of bladder (principal); N17.0 Acute kidney failure with tubular necrosis; E87.1 Hypo-osmolality and hyponatremia; E87.20 Acidosis, unspecified; N13.30 Unspecified hydronephrosis; D50.0 Iron deficiency anemia secondary to blood loss (chronic); Z20.822 Contact with and (suspected) exposure to COVID-19; N18.32 Chronic kidney disease, stage 3b; I12.9 Hypertensive chronic kidney disease with stage 1 through stage 4 chronic kidney disease, or unspecified chronic kidney disease; D72.829 Elevated white blood cell count, unspecified; Z90.10 Acquired absence of unspecified breast and nipple; Z85.50 Personal history of malignant neoplasm of unspecified urinary tract organ; Z85.46 Personal history of malignant neoplasm of prostate; Z90.79 Acquired absence of other genital organ(s); Z99.2 Dependence on renal dialysis
CPT/HCPCS: 36415; 36558; 37184; 71045; 74176; 76775; 76937; 77001; 80048; 80053; 81001; 82270; 82306; 82570; 82728; 82784; 83521; 83540; 83550; 83605; 83735; 83970; 84100; 84154; 84155; 84156; 84165; 84300; 85007; 85025; 85027; 85610; 85730; 86334; 86850; 86900; 86901; 86920; 87040; 87086; 87340; 87426; 90935; 93005; 96365; 99152; 99291; A4344; C1894; G0378; J1100; J1642; J1756; J1885; J2003; J2250; J2405; J2704